=== PATIENT | female | born 1950 | race Caucasian/White ===

== ENCOUNTER 2020-01-25 17:37 | Emergency (ER) | payer MEDICARE, MEDICAID, SELFPAY ==
[2020-01-25 17:49] VITALS: BP 138/72; BP 164/88; PULSE 60; PULSE 74; RESP 16; TEMP 36.6; O2SAT 90; O2SAT 92; BMI 22.6
--- NOTE | 2020-01-25 18:03 | ED_ITS ---
HPI - Medical Clearance General Chief complaint: Medical Clearance Stated complaint: DISCOLORATION LT SHOULDER/FEET Time Seen by Provider: 01/25/20 18:01 Source: patient Mode of arrival: EMS Limitations: other ( patient is a poor historian) History of Present Illness HPI Narrative: 69 years old female brought in by ambulance from a shelter, there is a concern off (mottling) of left arm and both feet, patient is poor historian at her baseline, patient keep repeating ' I am fine ', patient had stable vital sign, and exam is not indicated for any sign of critical illness. or acute ischemic events. Related Information Allergies Allergy/AdvReac Type Severity Reaction Status Date / Time oxycodone [OXYCODONE] Allergy Unknown UNK Verified 01/25/20 18:12 pregabalin [PREGABALIN] Allergy Unknown UNK Verified 01/25/20 18:12 tramadol [TRAMADOL] Allergy Unknown UNK Verified 01/25/20 18:12 Review of Systems Review of Systems: All other systems are reviewed and are negative Constitutional: Reports as per HPI and Reports no additional constitutional comp laints Eyes: Reports as per HPI and Reports no additional eye complaints Reports system reviewed and no additional complaints, except as documented Cardiovascular: Reports as per HPI and Reports no additional cardiovascular complaints Respiratory: Reports as per HPI and Reports no additional respiratory complaints Gastrointestinal: Reports as per HPI and Reports no additional gastrointestinal complaints Genitourinary: Reports no additional female genitourinary complaints Musculoskeletal: Reports no additional musculoskeletal complaints Skin/Breast: Reports system reviewed and no additional complaints, except as docu Psychiatric: Reports no additional psychiatric complaints Endocrine: Reports no additional endocrine complaints Hematologic/Lymphatic: Reports no additional hematologic/lymphatic complaints Allergic/Immunologic: Reports no additional allergic/immunologic complaints Reports system reviewed and no additional complaints, except as documented and Reports Abnormal speech present [facility] Past Medical History [facility] Narrative: PMHx: COPD, CKD, DM, HTN, Metabolic encephalopathy, Bipolar disorder, dementia, hypercoagulopathy on coumadin, DVT, Hypernatremia, head injury Medical History (Updated 01/25/20 @ 18:11 by Denise Bojorquez) Accidental poisoning Anemia Anxiety Cataract Catatonic disorder due to known physiological condition CKD (chronic kidney disease) stage 4, GFR 15-29 ml/min COPD (chronic obstructive pulmonary disease) Delirium Diabetes insipidus Diabetes mellitus Disorientated Dysphagia Essential (primary) hypertension GERD (gastroesophageal reflux disease) Hyperkalemia Hyperosmolality Major depressive disorder Manic behavior Metabolic encephalopathy Presbyopia Subarachnoid hemorrhage Venous thromboembolism (VTE) Social History Social History Alcohol intake: never Smoking Status: Never smoker Smoked in Last 30 Days: No Use of substances other than those prescribed or required for medical reasons: No Any prior treatment program specific to substance use: No Advance Directives: No Advance Directives Information Provided: Yes Physical Exam Vital Signs: Vital Signs: Vital Signs Temp Pulse Resp BP Pulse Ox 01/25/20 21:10 84 16 154/92 H 98 01/25/20 19:31 97.9 F 74 18 139/83 98 01/25/20 17:49 97.9 F 74 16 164/88 H 92 Body Mass Index 22.6 Vital signs have been reviewed as normal and appeared to be correct. Hypertensive. Heart rate normal. Respiration rate normal. Temperature normal. Oxygen saturation normal. Appearance: Alert. Oriented X3. No acute distress. Head: Normal external exam. Normocephalic. Atraumatic. No Johnson signs noted. No raccoon eyes noted Eyes: PERRLA. EOMI. Conjunctiva and sclera normal. Eyelids normal. ENT: EAC normal. TM's Normal. Pharynx normal. Uvula midline. Moist mucous membranes. No trismus noted. No drooling noted. No muffled voice noted. Neck: Normal inspection. Neck supple. FROM. No adenopathy. Thyroid Normal. No meningeal signs. No neck mass noted. CVS: Normal heart rate and rhythm. Heart sound normal. No murmurs noted. Pulses normal throughout. Respiratory: No respiratory distress. Painless inspiration. Breath sounds normal. No wheezes/rales/rhonchi noted. Chest nontender. No accessory muscle usage noted or decreased air movement noted. Abdomen: Soft and nontender. Bowel sounds normal in all 4 quadrants. No distention noted. No organomegaly noted. No visible injury noted. Back: No CVA tenderness. Full range of motion noted. Skin: Skin warm and dry. Normal skin color. Normal skin turgor. No rashes/lesions/lacerations noted. Extremities: Subtle discoloration of the left forearm No mottling, good cap refill on the left hand and bilateral feet, otherwise neurovascular exam is intact. Neuro: Oriented X 3. No motor deficit. No sensory deficit. Reflexes normal. Course Course Course Narrative: 69-year-old female poor historian came in with vague history of discoloration of the left arm and bilateral feet patient had a history of blood clots but no coagulation therapy. Will consider labs to rule out sepsis, will consider ultrasound to rule out vascular occlusion. Reevaluation(s) Reevaluation #1: Patient is awake, oriented, feeling normal, would like to go back to [facility] Time: 00:28 MDM - Medical Clearance MDM Narrative Medical decision making narrative: 69-year-old female came in from [facility] for incidental finding on routine checkup on the patient was what they describe as mottling of the left upper extremities and bilateral feet, physical exam showing no mottling, vascular exam is unremarkable for acute pathology, patient had an extensive ultrasound both venous and arterial on the left upper extremities which showed may be questionable narrowing of the left radial artery otherwise patent subclavian/ brachial /axillary arteries., the case was discussed with Dr. Friedman over the phone, who advised as long as No ischemic change in the hand with normal vital sign and normal blood workup patient can go back to [facility] and follow as an outpatient with her primary doctor. Lab Data Result diagrams: 01/25/20 20:10 01/25/20 20:10 Labs: Lab Results 01/25/20 01/25/20 01/25/20 Range/Units 20:10 20:10 20:10 WBC 7.0 (4.8-10.8) X10*3/uL RBC 5.13 (4.20-5.50) X10*6/uL Hgb 14.2 (12.0-16.0) g/dl Hct 45.3 (37-47) % MCV 88.3 (80-98) fL MCH 27.7 (27.0-33.0) pg MCHC 31.3 (31.0-35.0) g/dl RDW 14.2 (11.0-16.0) % Plt Count 278 (160-400) X10*3/uL MPV 11.0 (9.4-12.3) fL Immature Gran % (Auto) 0.3 (0.0-0.4) % Neut % (Auto) 63.5 (45-73) % Lymph % (Auto) 24.5 (20-40) % Houghton % (Auto) 8.7 (2-11) % Eos % (Auto) 2.4 (0-4) % Baso % (Auto) 0.6 (0-2) % Lymph # (Auto) 1.7 (1.2-4.9) X10*3/uL Houghton # (Auto) 0.6 (0.1-1.2) X10*3/uL Eos # (Auto) 0.2 (0.0-0.4) X10*3/uL Baso # (Auto) 0.0 (0.0-0.2) X10*3/uL Abs Immat Gran (auto) 0.02 (0.00-0.03) X10*3/uL Absolute Neuts (auto) 4.4 (2.0-8.3) X10*3/uL Absolute Nucleated RBC 0.000 (0.0-0.012) X10*3/uL Nucleated RBC % (auto) 0.0 (0.0-0.2) /100WBC ESR 45 H (0-20) MM/HR PT (10.8-13.0) SEC INR (0.9-1.1) APTT (24.1-38.0) SEC Sodium 143 (135-145) mmol/L Potassium 5.1 (3.3-5.1) mmol/l Chloride 111 H (96-108) mmol/L Carbon Dioxide 19 L (22-29) mmol/L Anion Gap 18 (12-20) BUN 27 H (9-16) mg/dL Creatinine 2.34 H (0.5-1.4) mg/dL Estim Creat Clear Calc 19.0 Estimated GFR 20 Random Glucose 76 (60-115) mg/dL Lactic Acid (0.5-2.0) mmol/L Calcium 9.4 (8.4-10.2) mg/dL Total Bilirubin 0.3 (0.0-1.0) mg/dL Direct Bilirubin < 0.2 (0.0-0.5) mg/dL AST 14 (5-31) U/L ALT 17 (0-31) U/L Alkaline Phosphatase 162 H (39-117) U/L C-Reactive Protein 1.51 H (< or = 0.50) mg/dL Total Protein 7.0 (6.5-8.0) g/dL Albumin 3.7 (3.5-5.0) g/dL Lipase 55 (8-78) U/L TSH 0.02 L (0.32-4.0) mIU/mL Free T4 0.93 (0.71-1.85) ng/dL Urine Color Urine Appearance Urine pH (5.0-8.0) Ur Specific Verner (1.005-1.025) Urine Protein (NEG-TRACE) MG/DL Urine Glucose (UA) (NEG) MG/DL Urine Ketones (NEG) MG/DL Urine Blood (NEG) Urine Nitrite (NEG) Ur Leukocyte Esterase (NEG) Urine RBC (0) /HPF Urine WBC (0-4) /HPF Ur Squamous Epith Cells /LPF Urine Bacteria /LPF 01/25/20 01/25/20 01/25/20 Range/Units 20:10 20:10 20:10 WBC (4.8-10.8) X10*3/uL RBC (4.20-5.50) X10*6/uL Hgb (12.0-16.0) g/dl Hct (37-47) % MCV (80-98) fL MCH (27.0-33.0) pg MCHC (31.0-35.0) g/dl RDW (11.0-16.0) % Plt Count (160-400) X10*3/uL MPV (9.4-12.3) fL Immature Gran % (Auto) (0.0-0.4) % Neut % (Auto) (45-73) % Lymph % (Auto) (20-40) % Houghton % (Auto) (2-11) % Eos % (Auto) (0-4) % Baso % (Auto) (0-2) % Lymph # (Auto) (1.2-4.9) X10*3/uL Houghton # (Auto) (0.1-1.2) X10*3/uL Eos # (Auto) (0.0-0.4) X10*3/uL Baso # (Auto) (0.0-0.2) X10*3/uL Abs Immat Gran (auto) (0.00-0.03) X10*3/uL Absolute Neuts (auto) (2.0-8.3) X10*3/uL Absolute Nucleated RBC (0.0-0.012) X10*3/uL Nucleated RBC % (auto) (0.0-0.2) /100WBC ESR (0-20) MM/HR PT 12.8 (10.8-13.0) SEC INR 1.1 (0.9-1.1) APTT 29.4 (24.1-38.0) SEC Sodium (135-145) mmol/L Potassium (3.3-5.1) mmol/l Chloride (96-108) mmol/L Carbon Dioxide (22-29) mmol/L Anion Gap (12-20) BUN (9-16) mg/dL Creatinine (0.5-1.4) mg/dL Estim Creat Clear Calc Estimated GFR Random Glucose (60-115) mg/dL Lactic Acid 1.6 (0.5-2.0) mmol/L Calcium (8.4-10.2) mg/dL Total Bilirubin (0.0-1.0) mg/dL Direct Bilirubin (0.0-0.5) mg/dL AST (5-31) U/L ALT (0-31) U/L Alkaline Phosphatase (39-117) U/L C-Reactive Protein (< or = 0.50) mg/dL Total Protein (6.5-8.0) g/dL Albumin (3.5-5.0) g/dL Lipase (8-78) U/L TSH (0.32-4.0) mIU/mL Free T4 (0.71-1.85) ng/dL Urine Color Urine Appearance Urine pH (5.0-8.0) Ur Specific Verner (1.005-1.025) Urine Protein (NEG-TRACE) MG/DL Urine Glucose (UA) (NEG) MG/DL Urine Ketones (NEG) MG/DL Urine Blood (NEG) Urine Nitrite (NEG) Ur Leukocyte Esterase (NEG) Urine RBC (0) /HPF Urine WBC (0-4) /HPF Ur Squamous Epith Cells /LPF Urine Bacteria /LPF 01/24/20 Range/Units 22:25 WBC (4.8-10.8) X10*3/uL RBC (4.20-5.50) X10*6/uL Hgb (12.0-16.0) g/dl Hct (37-47) % MCV (80-98) fL MCH (27.0-33.0) pg MCHC (31.0-35.0) g/dl RDW (11.0-16.0) % Plt Count (160-400) X10*3/uL MPV (9.4-12.3) fL Immature Gran % (Auto) (0.0-0.4) % Neut % (Auto) (45-73) % Lymph % (Auto) (20-40) % Houghton % (Auto) (2-11) % Eos % (Auto) (0-4) % Baso % (Auto) (0-2) % Lymph # (Auto) (1.2-4.9) X10*3/uL Houghton # (Auto) (0.1-1.2) X10*3/uL Eos # (Auto) (0.0-0.4) X10*3/uL Baso # (Auto) (0.0-0.2) X10*3/uL Abs Immat Gran (auto) (0.00-0.03) X10*3/uL Absolute Neuts (auto) (2.0-8.3) X10*3/uL Absolute Nucleated RBC (0.0-0.012) X10*3/uL Nucleated RBC % (auto) (0.0-0.2) /100WBC ESR (0-20) MM/HR PT (10.8-13.0) SEC INR (0.9-1.1) APTT (24.1-38.0) SEC Sodium (135-145) mmol/L Potassium (3.3-5.1) mmol/l Chloride (96-108) mmol/L Carbon Dioxide (22-29) mmol/L Anion Gap (12-20) BUN (9-16) mg/dL Creatinine (0.5-1.4) mg/dL Estim Creat Clear Calc Estimated GFR Random Glucose (60-115) mg/dL Lactic Acid (0.5-2.0) mmol/L Calcium (8.4-10.2) mg/dL Total Bilirubin (0.0-1.0) mg/dL Direct Bilirubin (0.0-0.5) mg/dL AST (5-31) U/L ALT (0-31) U/L Alkaline Phosphatase (39-117) U/L C-Reactive Protein (< or = 0.50) mg/dL Total Protein (6.5-8.0) g/dL Albumin (3.5-5.0) g/dL Lipase (8-78) U/L TSH (0.32-4.0) mIU/mL Free T4 (0.71-1.85) ng/dL Urine Color YELLOW Urine Appearance CLEAR Urine pH 6.0 (5.0-8.0) Ur Specific Verner 1.015 (1.005-1.025) Urine Protein 1+ H (NEG-TRACE) MG/DL Urine Glucose (UA) NEG (NEG) MG/DL Urine Ketones NEG (NEG) MG/DL Urine Blood NEG (NEG) Urine Nitrite NEG (NEG) Ur Leukocyte Esterase NEG (NEG) Urine RBC 0 (0) /HPF Urine WBC 0-2 (0-4) /HPF Ur Squamous Epith Cells 1+ /LPF Urine Bacteria 1+ /LPF Imaging Data Chest x-ray: Radiologist's impression: Significantly improved prior diffuse interstitial infiltrate, minimal residual parahilar interstitial markings. No dense consolidation. No significant pleural effusion. arterial Doppler scan of left upper extremities left upper extremities arterial Doppler scan: My impression: No evidence for left upper extremity vein thrombosis. Radiologist's impression: Study is technically limited. The patient is unable to fully cooperate. There is antegrade triphasic waveforms within normal caliber smooth vessels in the brachial, axillary and subclavian arteries of the left upper extremity. There is abnormal imaging with diminished color signal and blunted monophasic low amplitude waveforms within the left radial artery. In this setting narrowing or thrombus may be present. Further evaluation may be necessary
--- NOTE | 2020-01-25 18:14 | US_ITS ---
EXAMINATION: DUPLEX EVALUATION OF THE LEFT UPPER EXTREMITY ARTERIAL SYSTEM CLINICAL INFORMATION: Left arm discoloration. History of blood clots COMPARISON: None TECHNIQUE: Grayscale evaluation was performed from the left subclavian to the left forearm. Color mapping was used. Spectral Doppler waveforms were obtained. FINDINGS: Left subclavian artery demonstrates a triphasic waveform in the appropriate direction with a peak systolic velocity of 49 cm/s The left axillary artery appears normal caliber with a smooth contour. There is an 80 solano triphasic waveform. The peak systolic velocity is 49 cm/s The left brachial artery is well visualized with a smooth contour. There is saturation with color signal. There is an antegrade triphasic waveform. The peak systolic velocity is 65 cm/s proximally. The peak systolic velocity in the mid left brachial artery is 70 cm/s. The left radial artery is not well visualized. There is an attenuated antegrade monophasic waveform. The peak systolic velocity is 13 cm/s. This represents dramatic diminution in flow. There is a report of abnormal waveform and diminished velocity in the left ulnar artery. This is not documented. US/US arterial duplex UE LT IMPRESSION: Study is technically limited. The patient is unable to fully cooperate. There is antegrade triphasic waveforms within normal caliber smooth vessels in the brachial, axillary and subclavian arteries of the left upper extremity. There is abnormal imaging with diminished color signal and blunted monophasic low amplitude waveforms within the left radial artery. In this setting narrowing or thrombus may be present. Further evaluation may be necessary
--- NOTE | 2020-01-25 18:14 | US_ITS ---
EXAMINATION: US DUPLEX UPPER EXTREMITY VEINS, LEFT CLINICAL INFORMATION: Left arm discoloration. History of blood clots. COMPARISON: None. TECHNIQUE: Doppler spectral analysis and color mapping was performed of the left upper extremity. Compression and augmentation maneuvers were performed where feasible. Technologist indicates the study was limited due to incomplete cooperation FINDINGS: The left brachial, basilic, and cephalic veins from the antecubital region to the shoulder were visualized and compressible. The axillary and subclavian veins were visualized and compressible where feasible. The lower aspect of the jugular vein was visualized and compressible. The venous system of the forearm was examined. There is color saturation of the venous system of the upper extremity. US/US venous duplex UE LT IMPRESSION: No evidence for left upper extremity vein thrombosis.
--- NOTE | 2020-01-25 18:15 | XR_ITS ---
EXAMINATION: XR chest 1V CLINICAL INFORMATION: Rule out pneumonia COMPARISON: July 2019 TECHNIQUE: XR chest 1V Tubes and lines: None Lungs and Vee: Prior diffuse interstitial infiltrates significantly improved. On the minimal residual interstitial markings parahilar region. Pleura: Normal. Costophrenic angles are sharp. No pneumothorax. Heart and mediastinum: The mediastinum is within normal limits.. Bones: Skeletal structures included are normal for patient's age. XR/XR chest 1V IMPRESSION: Significantly improved prior diffuse interstitial infiltrate, minimal residual parahilar interstitial markings. No dense consolidation. No significant pleural effusion.
--- NOTE | 2020-01-25 18:28 | PC.NURSE ---
Patient distressed. Yelling I want to go back. Difficult to cooperate without consistent encouragement.
--- NOTE | 2020-01-25 18:46 | PC.NURSE ---
Multiple attempts made to get blood labs. Patient not cooperative, very anxious, yelling I want to go home, I have rights? updated of difficulity. Plan to call Proxy which is the son.
[2020-01-25] MEDS: LORazepam 2 MG/ML VIAL IM (18:59)
[2020-01-25 19:31] VITALS: BP 139/83; PULSE 74; RESP 18; TEMP 36.6; O2SAT 98
[2020-01-25 20:15] LABS: MANUAL DIFF FLAG NO
[2020-01-25 20:17] LABS: Basophils Percent Auto 0.6 % (0-2); Eosinophils Absolute Auto 0.2 X10*3/uL (0.0-0.4); Eosinophils Percent Auto 2.4 % (0-4); Hematocrit 45.3 % (37-47); Hemoglobin 14.2 g/dl (12.0-16.0); Imm Gran Abs Auto 0.02 X10*3/uL (0.00-0.03); Imm Gran Pct Auto 0.3 % (0.0-0.4); Lymphocytes Absolute Auto 1.7 X10*3/uL (1.2-4.9); Lymphocytes Percent Auto 24.5 % (20-40); Mean Corpuscular HGB Conc 31.3 g/dl (31.0-35.0); Mean Corpuscular Hemoglobin 27.7 pg (27.0-33.0); Mean Corpuscular Volume 88.3 fL (80-98); Monocytes Absolute Auto 0.6 X10*3/uL (0.1-1.2); Monocytes Percent Auto 8.7 % (2-11); Neutrophils Absolute Auto 4.4 X10*3/uL (2.0-8.3); Neutrophils Percent Auto 63.5 % (45-73); Platelet Count 278 X10*3/uL (160-400); Red Blood Count 5.13 X10*6/uL (4.20-5.50); Red Cell Distribution Width 14.2 % (11.0-16.0)
[2020-01-25 20:21] LABS: INTERNATIONAL NORM RATIO 1.1 (0.9-1.1); Prothrombin Time 12.8 SEC (10.8-13.0)
[2020-01-25 20:29] LABS: Partial Thromboplastin Time 29.4 SEC (24.1-38.0)
[2020-01-25 20:35] LABS: Lactic Acid 1.6 mmol/L (0.5-2.0)
[2020-01-25 20:39] LABS: Alanine Aminotransferase 17 U/L (0-31); Albumin Level 3.7 g/dL (3.5-5.0); Alkaline Phosphatase 162 U/L (39-117); Anion Gap 18 (12-20); Aspartate Amino Transferase 14 U/L (5-31); Bilirubin Direct < 0.2 mg/dL (0.0-0.5); Bilirubin Total 0.3 mg/dL (0.0-1.0); Blood Urea Nitrogen 27 mg/dL (9-16); C Reactive Protein 1.51 mg/dL (< or = 0.50); Calcium 9.4 mg/dL (8.4-10.2); Carbon Dioxide 19 mmol/L (22-29); Chloride 111 mmol/L (96-108); Estimated Glomerular Filt Rate 20; Glucose Random 76 mg/dL (60-115); Lipase 55 U/L (8-78); Potassium 5.1 mmol/l (3.3-5.1); Sodium 143 mmol/L (135-145)
[2020-01-25 20:59] LABS: TSH reflex Free T4 0.02 mIU/mL (0.32-4.0)
[2020-01-25 21:10] VITALS: BP 154/92; PULSE 84; RESP 16; O2SAT 98
[2020-01-25 21:11] LABS: Erythrocyte Sedimentation Rate 45 MM/HR (0-20)
[2020-01-25 22:09] LABS: Free T4 (Free Thyroxine) 0.93 ng/dL (0.71-1.85)
--- NOTE | 2020-01-25 22:10 | PC.NURSE ---
OUt of bed to bedside commode with rn to attempt UA
[2020-01-25 22:36] LABS: Glucose Urine UA NEG (NEG); Leukocyte Esterase Urine NEG (NEG); Nitrite Urine NEG (NEG); Specific Gravity - Urine 1.015 (1.005-1.025); Urine Blood NEG (NEG); Urine Ketones NEG (NEG); Urine Protein 1+ MG/DL (NEG-TRACE)
[2020-01-25 22:41] LABS: Appearance Urine CLEAR; Color Urine YELLOW
[2020-01-25 23:06] LABS: Bacteria Urine 1+ /LPF; RBC Urine 0 /HPF (0); Squamous Epithelial Cell Urine 1+ /LPF; WBC Urine 0-2 /HPF (0-4)
== END 2020-01-26 01:55 ==
PROVIDERS: Emergency Provider Emergency Medicine; PCP Surgery
DX: M79.602 Pain in left arm (principal); M79.672 Pain in left foot; M79.671 Pain in right foot; I10 Essential (primary) hypertension; Z79.899 Other long term (current) drug therapy; Z79.01 Long term (current) use of anticoagulants
CPT/HCPCS: 36415; 71045; 80048; 80076; 81001; 83605; 83690; 84439; 84443; 85025; 85610; 85652; 85730; 86140; 93931; 93971; 96372; 99284; J2060

== ENCOUNTER → 2020-02-25 09:47 | Outpatient (BNVA) | payer MEDICARE, MEDICAID, SELFPAY | PROVIDERS: PCP Surgery; Referring Provider Surgery; Visit Provider Surgery | DX: R92.8 Other abnormal and inconclusive findings on diagnostic imaging of breast (principal) | CPT/HCPCS: 99212 ==

== ENCOUNTER 2020-11-11 16:35 | Outpatient (REF) | payer MEDICARE, MEDICAID, SELFPAY ==
[2020-11-11 16:48] LABS: Glucose Urine UA NEG (NEG); Leukocyte Esterase Urine NEG (NEG); Nitrite Urine NEG (NEG); Urine Blood NEG (NEG); Urine Ketones NEG (NEG); Urine Protein TRACE MG/DL (NEG-TRACE)
[2020-11-11 16:49] LABS: Appearance Urine CLEAR; Color Urine YELLOW
== END 2020-11-11 16:36 | disposition home or self-care (01) ==
LOC: HO.LNP 16:35
PROVIDERS: Visit Provider Hospitalist
DX: R41.82 Altered mental status, unspecified (principal)
CPT/HCPCS: 81003; 87086

== ENCOUNTER 2022-02-01 15:44 | Inpatient (IN) | payer MEDICARE, MEDICAID, SELFPAY ==
--- NOTE | ~2022-02-01 | CT_ITS ---
EXAMINATION: CT CHEST, ABDOMEN AND PELVIS WITHOUT CONTRAST CLINICAL INFORMATION: Chest and abdominal pain COMPARISON: No pertinent prior studies are available for comparison. TECHNIQUE: Multidetector volumetric imaging was performed from the thoracic inlet through the pubic symphysis without IV contrast. Sagittal and coronal reformatted images were obtained on the technologist's workstation. This CT examination was performed using dose optimization techniques as appropriate, variously including the following: *Automated exposure control *Adjustment of mA and/or kV according to patient size (this includes techniques or standardized protocols for targeted exams where dose is matched to indication/reason for exam; i.e. extremities or head) *Use of iterative reconstruction technique DLP: 507 mGy-cm FINDINGS: CHEST: Lung: There is a 3 mm subpleural left upper lobe nodule (7:215). Right middle lobe atelectasis is seen along the fissure (7:322). Lungs are otherwise clear. Mediastinum: There is thyromegaly with some punctate calcification. There is mild pectus excavatum. Small defect is seen in the sternum (5:44). Heart size normal. Minimal coronary calcification. Pericardium/Pleura: No significant effusion. No pleural mass or thickening. Chest Wall/Axilla: Unremarkable ABDOMEN/PELVIS: Peritoneal Space: No significant free air or free fluid identified. Liver, Gallbladder, Biliary Tree: The liver is normal in size, shape, and attenuation. No focal hepatic lesion or biliary ductal dilatation is present. The gallbladder is unremarkable with no evidence of radiopaque gallstones, gallbladder wall thickening, or obvious pericholecystic inflammatory changes. Pancreas: Unremarkable Spleen: Unremarkable Adrenal Glands: Unremarkable Kidneys and Ureters: The kidneys are normal in size, shape, and attenuation. No hydronephrosis, hydroureter, or calculi seen. No perinephric stranding. Bladder: Dillard catheter is present in a partially decompressed thick-walled bladder. Gastrointestinal Tract: Moderate high density stool is noted throughout the colon. No evidence of bowel obstruction. The small and large bowel are otherwise unremarkable. The appendix is unremarkable with the exception of a small appendicolith versus contrast media. Abdominal Wall: No significant hernia is appreciated. Lymph Nodes: No lymphadenopathy. Vascular: The aorta appears normal.. The IVC appears unremarkable. PELVIC VISCERA: Calcifications in the retroverted uterus consistent with old uterine fibroids. An abnormal adnexal mass or free intraperitoneal fluid is not seen. OSSEUS STRUCTURES: Are degenerative changes are noted throughout the spine. No bony destructive lesions are seen. 1.4 cm sclerotic lesion left hemisacrum. CT/CT abdomen pelvis wo IV con IMPRESSION: 1. A cause for the patient's abdominal pain and chest pain has not been found. 2. Incidental note made of thyromegaly, old uterine fibroids, degenerative changes in the spine and a small defect in the sternum. 3. Incidental note made of a 3 mm left upper lobe nodule, a Dillard catheter in the thick-walled bladder, moderate stool burden and appendicolith. No evidence of appendicitis. 4. 1.4 cm sclerotic lesion left hemisacrum. Fleischner guidelines were followed.
[2022-02-01 15:56] VITALS: BP 108/68; BP 109/72; PULSE 91; PULSE 93; RESP 10; TEMP 36.6; O2SAT 94; O2SAT 95; BMI 22.3
[2022-02-01 15:59] VITALS: BP 94/67; PULSE 93; RESP 16; TEMP 36.6; O2SAT 95
--- NOTE | 2022-02-01 16:03 | ECG_ITS ---
Test Reason : WEAKNESS Blood Pressure : / mmHG Vent. Rate : 089 BPM Atrial Rate : 089 BPM P-R Int : 156 ms QRS Dur : 130 ms QT Int : 406 ms P-R-T Axes : 065 002 036 degrees QTc Int : 493 ms Normal sinus rhythm Right bundle branch block Inferior infarct (cited on or before 24-JUL-2019) Abnormal ECG When compared with ECG of 24-JUL-2019 20:57, Inverted T waves have replaced nonspecific T wave abnormality in Anterior leads Heart rate has decreased Referred By: Eri Billy Electronically Signed By:LIZETH CASTILLO MD
--- NOTE | 2022-02-01 17:19 | PC.NURSE ---
This RN attempted to draw labs off pt midline, unsuccessful. Midline capable of being flushed with no issue. This RN and PCT Karine vanessa pt labs. Pt is very difficult stick. This RN also placed a perry catheter in pt, size 16 indonesian, 10 mL balloon. Pt tolerated procedure fairly. Pt is now resting comfortable on stretcher asking for a phoebe stevie
[2022-02-01 17:36] LABS: MANUAL DIFF FLAG NO
[2022-02-01 17:37] LABS: Basophils Absolute Auto 0.1 X10*3/uL (0.0-0.2); Basophils Percent Auto 0.5 % (0-2); Eosinophils Absolute Auto 0.2 X10*3/uL (0.0-0.4); Eosinophils Percent Auto 1.8 % (0-4); Hematocrit 45.6 % (37.0-47.0); Hemoglobin 14.7 g/dl (12.0-16.0); Imm Gran Abs Auto 0.04 X10*3/uL (0.00-0.03); Imm Gran Pct Auto 0.4 % (0.0-0.4); Lymphocytes Absolute Auto 2.6 X10*3/uL (1.2-4.9); Lymphocytes Percent Auto 26.9 % (20-40); Mean Corpuscular HGB Conc 32.2 g/dl (31.0-35.0); Mean Corpuscular Hemoglobin 27.6 pg (27.0-33.0); Mean Corpuscular Volume 85.7 fL (80.0-98.0); Mean Platelet Volume 11.7 fL (9.4-12.3); Monocytes Absolute Auto 1.1 X10*3/uL (0.1-1.2); Monocytes Percent Auto 11.2 % (2-11); Neutrophils Absolute Auto 5.8 x10*3/uL (2.0-8.3); Neutrophils Percent Auto 59.2 % (45-73); Platelet Count 259 X10*3/uL (160-400); Red Blood Count 5.32 X10*6/uL (4.20-5.50); Red Cell Distribution Width 15.2 % (11.0-16.0); White Blood Count 9.8 X10*3/uL (4.8-10.8)
[2022-02-01 17:42] LABS: INTERNATIONAL NORM RATIO 1.2 (0.9-1.1); Prothrombin Time 13.9 SEC (10.0-13.1)
--- NOTE | 2022-02-01 17:47 | ED_ITS ---
HPI - Weakness General Chief complaint: Weakness Stated complaint: WEAK,LETHARGY FROM SN[facility] PER EMS Time Seen by Provider: 02/01/22 16:03 Source: EMS Mode of arrival: EMS History of Present Illness HPI Narrative: 71-year-old female brought in by EMS with staff complaints of increasing weakness and fatigue, on questioning patient denies any shortness of breath or chest pain/palpitations but also has baseline dementia. Related Data Home Medications Medication Instructions Recorded Confirmed cholecalciferol (vitamin D3) 50 50 mcg PO DAILY 02/25/20 02/25/20 mcg (2,000 unit) capsule clonidine 0.1 mg/24 hr weekly 1 patch transdermal QWEEK 02/25/20 02/25/20 transdermal patch desipramine 50 mg tablet 50 mg PO BEDTIME 02/25/20 02/25/20 glucagon 1 mg/0.2 mL subcutaneous mg subcut 02/25/20 02/25/20 auto-injector hydroxyzine HCl 25 mg tablet 25 mg PO BEDTIME 02/25/20 02/25/20 melatonin 5 mg capsule 5 mg PO BEDTIME PRN 02/25/20 02/25/20 metoprolol tartrate 25 mg tablet 12.5 mg PO BID 02/25/20 02/25/20 mirtazapine 30 mg tablet 30 mg PO BEDTIME 02/25/20 02/25/20 nystatin 100,000 unit/gram g topical 02/25/20 02/25/20 powder-emollient combination no.[id number] gel pack oxcarbazepine 300 mg tablet 300 mg PO BID 02/25/20 02/25/20 Allergies Allergy/AdvReac Type Severity Reaction Status Date / Time oxycodone [OXYCODONE] Allergy Unknown UNK Verified 01/25/20 18:12 pregabalin [PREGABALIN] Allergy Unknown UNK Verified 01/25/20 18:12 tramadol [TRAMADOL] Allergy Unknown UNK Verified 01/25/20 18:12 Review of Systems Review of Systems: Pertinent positives and negatives as stated in HPI 10 point review of systems is otherwise negative. PMFSH Past Medical History Source: nursing notes reviewed Medical History Accidental poisoning Anemia Anxiety Cataract Catatonic disorder due to known physiological condition CKD (chronic kidney disease) stage 4, GFR 15-29 ml/min COPD (chronic obstructive pulmonary disease) Delirium Diabetes insipidus Diabetes mellitus Disorientated Dysphagia Essential (primary) hypertension GERD (gastroesophageal reflux disease) Hyperkalemia Hyperosmolality Major depressive disorder Manic behavior Metabolic encephalopathy Presbyopia Subarachnoid hemorrhage Venous thromboembolism (VTE) Surgical History History of lumpectomy of left breast (~05/2012) Family History Family History Father No problems noted. Mother No problems noted. Social History Social History Alcohol intake: never Advance Directives: No Advance Directives Information Provided: No Physical Exam Vital Signs: Vital Signs: Last Vital Signs Temp 98.7 F 02/01/22 20:47 Pulse 79 02/01/22 20:47 Resp 19 02/01/22 20:47 BP 119/76 02/01/22 20:47 Pulse Ox 96 02/01/22 20:47 O2 Del Method 02/01/22 20:47 BMI result Body Mass Index 22.3 VITAL SIGNS: Reviewed. GENERAL: Chronically ill, cachectic in no acute distress. HEAD: Normocephalic/atraumatic EYES: PERRLA, EOMI EARS: Ext canals without abnormality, TMs non-bulging and non-erythematous NOSE: Nares patent bilateral OROPHARYNX: no oral lesions noted, posterior pharynx clear, dry mucosa LUNGS: Good inspiratory effort, rales noted. SpO2<95> CARDIOVASCULAR: Regular rate and rhythm without noted murmurs, no JVD or lower extremity edema. ABDOMEN: Soft, non-tender, non-distended with bowel sounds. MUSCULOSKELETAL: No tenderness, deformities, or effusions noted on gross inspection. EXTREMITIES: No cyanosis, clubbing or edema. SKIN: Inspection of the skin reveals no rashes, dry skin NEUROLOGIC: Alert and oriented x 2. Strength and sensation to light touch were grossly intact but patient also appears to be in a contracted position Course Course Course Narrative: 71-year-old female with history and clinical presentation and will rule out infection, cardiopulmonary, anemia. 1920: I suspect infection, antibiotics given, fluids given serial troponins flat in suspect they may be elevated due to acute on chronic renal failure and patient has no complaints of chest pain. I discussed case with inpatient hospitalist. MDM - Weakness Lab Data Result diagrams: 02/01/22 17:25 02/01/22 20:04 Labs: Lab Results 02/01/22 02/01/22 02/01/22 Range/Units 17:25 17:25 17:25 WBC 9.8 (4.8-10.8) X10*3/uL RBC 5.32 (4.20-5.50) X10*6/uL Hgb 14.7 (12.0-16.0) g/dl Hct 45.6 (37.0-47.0) % MCV 85.7 (80.0-98.0) fL MCH 27.6 (27.0-33.0) pg MCHC 32.2 (31.0-35.0) g/dl RDW 15.2 (11.0-16.0) % Plt Count 259 (160-400) X10*3/uL MPV 11.7 (9.4-12.3) fL Immature Gran % (Auto) 0.4 (0.0-0.4) % Neut % (Auto) 59.2 (45-73) % Lymph % (Auto) 26.9 (20-40) % [place] % (Auto) 11.2 H (2-11) % Eos % (Auto) 1.8 (0-4) % Baso % (Auto) 0.5 (0-2) % Lymph # (Auto) 2.6 (1.2-4.9) X10*3/uL [place] # (Auto) 1.1 (0.1-1.2) X10*3/uL Eos # (Auto) 0.2 (0.0-0.4) X10*3/uL Baso # (Auto) 0.1 (0.0-0.2) X10*3/uL Abs Immat Gran (auto) 0.04 H (0.00-0.03) X10*3/uL Absolute Neuts (auto) 5.8 (2.0-8.3) x10*3/uL Absolute Nucleated RBC 0.000 (0.0-0.012) X10*3/uL Nucleated RBC % (auto) 0.0 (0.0-0.2) /100WBC PT 13.9 H (10.0-13.1) SEC INR 1.2 H (0.9-1.1) Sodium (135-145) mmol/L Potassium (3.3-5.1) mmol/L Chloride (96-108) mmol/L Carbon Dioxide (22-29) mmol/L Anion Gap (12-20) BUN (9-16) mg/dL Creatinine (0.5-1.4) mg/dL Estim Creat Clear Calc Estimated GFR Random Glucose (60-115) mg/dL Lactic Acid (0.5-2.0) mmol/L Calcium (8.4-10.2) mg/dL Total Bilirubin (0.0-1.0) mg/dL AST (5-31) U/L ALT (0-31) U/L Alkaline Phosphatase (39-117) U/L Troponin I High Sens (<3.5-17.0) ng/L B-Natriuretic Peptide (<100) pg/mL Total Protein (6.5-8.0) g/dL Albumin (3.5-5.0) g/dL Urine Color Urine Appearance Urine pH (5.0-9.0) Ur Specific [place] (1.005-1.025) Urine Protein (Neg-Trace) mg/dL Urine Glucose (UA) (Negative) mg/dL Urine Ketones (Negative) mg/dL Urine Blood (Negative) Urine Nitrite (Negative) Ur Leukocyte Esterase (Negative) Urine RBC (0-2) /HPF Urine WBC (0-5) /HPF Ur Squamous Epith Cells (0-2) /HPF Urine Bacteria (None Seen) Hyaline Casts (0-2) /LPF Influenza Type A (PCR) NEGATIVE (Negative) Influenza Type B (PCR) NEGATIVE (Negative) RSV RNA Qual (PCR) NEGATIVE (Negative) SARS-CoV-2 RNA (RT-PCR) NEGATIVE (Negative) 02/01/22 02/01/22 02/01/22 Range/Units 17:25 17:25 17:26 WBC (4.8-10.8) X10*3/uL RBC (4.20-5.50) X10*6/uL Hgb (12.0-16.0) g/dl Hct (37.0-47.0) % MCV (80.0-98.0) fL MCH (27.0-33.0) pg MCHC (31.0-35.0) g/dl RDW (11.0-16.0) % Plt Count (160-400) X10*3/uL MPV (9.4-12.3) fL Immature Gran % (Auto) (0.0-0.4) % Neut % (Auto) (45-73) % Lymph % (Auto) (20-40) % [place] % (Auto) (2-11) % Eos % (Auto) (0-4) % Baso % (Auto) (0-2) % Lymph # (Auto) (1.2-4.9) X10*3/uL [place] # (Auto) (0.1-1.2) X10*3/uL Eos # (Auto) (0.0-0.4) X10*3/uL Baso # (Auto) (0.0-0.2) X10*3/uL Abs Immat Gran (auto) (0.00-0.03) X10*3/uL Absolute Neuts (auto) (2.0-8.3) x10*3/uL Absolute Nucleated RBC (0.0-0.012) X10*3/uL Nucleated RBC % (auto) (0.0-0.2) /100WBC PT (10.0-13.1) SEC INR (0.9-1.1) Sodium (135-145) mmol/L Potassium (3.3-5.1) mmol/L Chloride (96-108) mmol/L Carbon Dioxide (22-29) mmol/L Anion Gap (12-20) BUN (9-16) mg/dL Creatinine (0.5-1.4) mg/dL Estim Creat Clear Calc Estimated GFR Random Glucose (60-115) mg/dL Lactic Acid 1.6 (0.5-2.0) mmol/L Calcium (8.4-10.2) mg/dL Total Bilirubin (0.0-1.0) mg/dL AST (5-31) U/L ALT (0-31) U/L Alkaline Phosphatase (39-117) U/L Troponin I High Sens 210.6 H* (<3.5-17.0) ng/L B-Natriuretic Peptide 269 H (<100) pg/mL Total Protein (6.5-8.0) g/dL Albumin (3.5-5.0) g/dL Urine Color Urine Appearance Urine pH (5.0-9.0) Ur Specific [place] (1.005-1.025) Urine Protein (Neg-Trace) mg/dL Urine Glucose (UA) (Negative) mg/dL Urine Ketones (Negative) mg/dL Urine Blood (Negative) Urine Nitrite (Negative) Ur Leukocyte Esterase (Negative) Urine RBC (0-2) /HPF Urine WBC (0-5) /HPF Ur Squamous Epith Cells (0-2) /HPF Urine Bacteria (None Seen) Hyaline Casts (0-2) /LPF Influenza Type A (PCR) (Negative) Influenza Type B (PCR) (Negative) RSV RNA Qual (PCR) (Negative) SARS-CoV-2 RNA (RT-PCR) (Negative) 02/01/22 02/01/22 02/01/22 Range/Units 19:20 20:04 20:04 WBC (4.8-10.8) X10*3/uL RBC (4.20-5.50) X10*6/uL Hgb (12.0-16.0) g/dl Hct (37.0-47.0) % MCV (80.0-98.0) fL MCH (27.0-33.0) pg MCHC (31.0-35.0) g/dl RDW (11.0-16.0) % Plt Count (160-400) X10*3/uL MPV (9.4-12.3) fL Immature Gran % (Auto) (0.0-0.4) % Neut % (Auto) (45-73) % Lymph % (Auto) (20-40) % [place] % (Auto) (2-11) % Eos % (Auto) (0-4) % Baso % (Auto) (0-2) % Lymph # (Auto) (1.2-4.9) X10*3/uL [place] # (Auto) (0.1-1.2) X10*3/uL Eos # (Auto) (0.0-0.4) X10*3/uL Baso # (Auto) (0.0-0.2) X10*3/uL Abs Immat Gran (auto) (0.00-0.03) X10*3/uL Absolute Neuts (auto) (2.0-8.3) x10*3/uL Absolute Nucleated RBC (0.0-0.012) X10*3/uL Nucleated RBC % (auto) (0.0-0.2) /100WBC PT (10.0-13.1) SEC INR (0.9-1.1) Sodium 146 H (135-145) mmol/L Potassium 4.5 (3.3-5.1) mmol/L Chloride 110 H (96-108) mmol/L Carbon Dioxide 18 L (22-29) mmol/L Anion Gap 23 H (12-20) BUN 97 H (9-16) mg/dL Creatinine 5.87 H* (0.5-1.4) mg/dL Estim Creat Clear Calc 7.3 Estimated GFR 7 Random Glucose 97 (60-115) mg/dL Lactic Acid (0.5-2.0) mmol/L Calcium 9.5 (8.4-10.2) mg/dL Total Bilirubin 0.6 (0.0-1.0) mg/dL AST 12 (5-31) U/L ALT 7 (0-31) U/L Alkaline Phosphatase 119 H D (39-117) U/L Troponin I High Sens 160.1 H* (<3.5-17.0) ng/L B-Natriuretic Peptide (<100) pg/mL Total Protein 7.1 (6.5-8.0) g/dL Albumin 3.4 L (3.5-5.0) g/dL Urine Color Yellow Urine Appearance Cloudy Urine pH 5.5 (5.0-9.0) Ur Specific [place] 1.015 (1.005-1.025) Urine Protein 100 (2+) H (Neg-Trace) mg/dL Urine Glucose (UA) Negative (Negative) mg/dL Urine Ketones Negative (Negative) mg/dL Urine Blood Small (1+) H (Negative) Urine Nitrite Negative (Negative) Ur Leukocyte Esterase Large (3+) H (Negative) Urine RBC 0-2 (0-2) /HPF Urine WBC >50 H (0-5) /HPF Ur Squamous Epith Cells 0-2 (0-2) /HPF Urine Bacteria 4+ (None Seen) Hyaline Casts 3-5 (0-2) /LPF Influenza Type A (PCR) (Negative) Influenza Type B (PCR) (Negative) RSV RNA Qual (PCR) (Negative) SARS-CoV-2 RNA (RT-PCR) (Negative) ECG Data Attestation: I personally reviewed and interpreted this ECG as follows: Prior ECG tracings: available for review Interpretation: NSR, HR-89, RBBB, no EKG for comparison, [place] within normal limits. Critical Care Time Critical Care Time Critical Care Time: Yes Total Critical Care Time: 30 Attestation: I personally attest to this time spent taking care of the patient. Discharge Plan Discharge Clinical Impression: Acute on chronic renal failure, Elevated troponin, CHF (congestive heart failure), UTI (urinary tract infection) Patient Disposition: Admitted As Inpatient
[2022-02-01 17:52] LABS: Lactic Acid 1.6 mmol/L (0.5-2.0)
[2022-02-01 18:00] LABS: B Type Natriuretic Peptide 269 pg/mL (<100)
[2022-02-01 18:02] LABS: Troponin-I High Sensitivity 210.6 ng/L (<3.5-17.0)
[2022-02-01 18:17] LABS: Influenza A PCR NEGATIVE (Negative); Influenza B PCR NEGATIVE (Negative); Resp Syncy Virus RNA Qual PCR NEGATIVE (Negative); SARS COV2 PCR INHOUSE NEGATIVE (Negative)
[2022-02-01] MEDS: 0.9 % Sodium Chloride 1,000 ML 999 ML IV (19:12)
[2022-02-01 19:42] LABS: Appearance Urine Cloudy; Color Urine Yellow; Glucose Urine UA Negative (Negative); Leukocyte Esterase Urine Large (3+) (Negative); Nitrite Urine Negative (Negative); PH 5.5 (5.0-9.0); Specific Gravity - Urine 1.015 (1.005-1.025); UMIC TRIGGER UACC YES; Urine Blood Small (1+) (Negative); Urine Ketones Negative (Negative); Urine Protein 100 (2+) mg/dL (Neg-Trace)
[2022-02-01] MEDS: Furosemide 40 MG/4 ML VIAL IVPUSH (19:48)
[2022-02-01 20:17] LABS: Bacteria Urine 4+ (None Seen); RBC Urine 0-2 /HPF (0-2); Squamous Epithelial Cell Urine 0-2 /HPF (0-2); UACC Culture Trigger YES; WBC Urine >50 /HPF (0-5)
[2022-02-01 20:35] LABS: Creatinine Clr Calc Pharmacy 7.3; Estimated Glomerular Filt Rate 7
[2022-02-01 20:36] LABS: Alanine Aminotransferase 7 U/L (0-31); Albumin Level 3.4 g/dL (3.5-5.0); Alkaline Phosphatase 119 U/L (39-117); Anion Gap 23 (12-20); Aspartate Amino Transferase 12 U/L (5-31); Bilirubin Total 0.6 mg/dL (0.0-1.0); Blood Urea Nitrogen 97 mg/dL (9-16); Calcium 9.5 mg/dL (8.4-10.2); Carbon Dioxide 18 mmol/L (22-29); Chloride 110 mmol/L (96-108); Glucose Random 97 mg/dL (60-115); Potassium 4.5 mmol/L (3.3-5.1); Sodium 146 mmol/L (135-145); Total Protein 7.1 g/dL (6.5-8.0); Troponin-I High Sensitivity 160.1 ng/L (<3.5-17.0)
[2022-02-01] MEDS: cefTRIAXone sodium 1 GM in 0.9 % Sodium Chloride 50 ML IV (20:45)
[2022-02-01 20:47] VITALS: BP 119/76; PULSE 79; RESP 19; TEMP 37.1; O2SAT 96
[2022-02-01 21:45] VITALS: BP 123/75; PULSE 77; RESP 21; TEMP 37.3; O2SAT 98
--- NOTE | 2022-02-01 22:29 | PC.NURSE ---
Pt sleeping on stretcher at this time. respirations are even and unlabored.
--- NOTE | 2022-02-01 23:01 | P.HPHOSP_ITS ---
History of Present Illness Date of Service: 02/01/22 Chief Complaint: Altered mental status This is a 71-year-old female with past medical history of CKD, COPD, diabetes, dysphagia, essential hypertension, GERD, history of subarachnoid hemorrhage, VTE. Patient has baseline dementia therefore unable to give much history, history is obtained mostly from EMR and ED physician. Patient was brought in from [facility] for increased weakness and fatigue as well as altered mental status. On questioning patient on her review of system, she has not given me much history although she is awake and has her eyes open and tracks and states that she is able to hear my questions. On arrival to the ED patient was found to have no acute significant abnormal vitals Labs are significant for sodium of 146, BUN of 97, and creatinine of 5.87 with a baseline of around 2.34, troponin of 210 that decreased to 160, BNP of 269, UA positive for leukocyte Estrace, as well as WBC Abdomen pelvic CT shows no significant cause of the patient's abdominal pain and chest pain thyromegaly, old uterine fibroid, 3 mm left upper lobe nodule, thick- walled bladder, moderate stool burden an appendicolith with no evidence appendic itis. And 1.4 cm sclerotic lesion of left hank sacrum Patient started on IV antibiotics and fluids and will be admitted for further management. Review of Systems Review of Systems: Yes Unobtainable due to mental condition and Unobtainable due to mental status [facility] Medical History Accidental poisoning Anemia Anxiety Cataract Catatonic disorder due to known physiological condition CKD (chronic kidney disease) stage 4, GFR 15-29 ml/min COPD (chronic obstructive pulmonary disease) Delirium Diabetes insipidus Diabetes mellitus Disorientated Dysphagia Essential (primary) hypertension GERD (gastroesophageal reflux disease) Hyperkalemia Hyperosmolality Major depressive disorder Manic behavior Metabolic encephalopathy Presbyopia Subarachnoid hemorrhage Venous thromboembolism (VTE) Family History Father No problems noted. Mother No problems noted. Surgical History History of lumpectomy of left breast (~05/2012) Social History Alcohol intake: never Advance Directives: No Advance Directives Information Provided: No Meds Allergies Allergy/AdvReac Type Severity Reaction Status Date / Time oxycodone [OXYCODONE] Allergy Unknown UNK Verified 01/25/20 18:12 pregabalin [PREGABALIN] Allergy Unknown UNK Verified 01/25/20 18:12 tramadol [TRAMADOL] Allergy Unknown UNK Verified 01/25/20 18:12 Home Medications Medication Instructions Recorded Confirmed Last Taken Type cholecalciferol (vitamin D3) 50 50 mcg PO DAILY 02/25/20 02/01/22 02/01/22 History mcg (2,000 unit) capsule clonidine 0.1 mg/24 hr weekly 1 patch transdermal QWEEK 02/25/20 02/01/22 Unknown History transdermal patch desipramine 50 mg tablet 50 mg PO BEDTIME 02/25/20 02/01/22 01/31/22 History glucagon 1 mg/0.2 mL subcutaneous 1 mg subcut Q15M PRN HYPOGLYCEMIC 02/25/20 02/01/22 Unknown History auto-injector EVENT melatonin 5 mg capsule 5 mg PO BEDTIME 02/25/20 02/01/22 Unknown History metoprolol tartrate 25 mg tablet 12.5 mg PO BID 02/25/20 02/01/22 02/01/22 History mirtazapine 30 mg tablet 30 mg PO BEDTIME 02/25/20 02/01/22 01/31/22 History diazepam 2 mg tablet 1 mg PO BID 02/01/22 02/01/22 02/01/22 History furosemide 20 mg tablet 20 mg PO DAILY 02/01/22 02/01/22 02/01/22 History haloperidol decanoate 50 mg/mL 30 mg IM Q14D 02/01/22 02/01/22 Unknown History intramuscular solution (Haldol Decanoate) nystatin 100,000 unit/gram topical 1 appl topical BID 02/01/22 02/01/22 02/01/22 History powder oxcarbazepine 300 mg/5 mL (60 300 mg PO BID 02/01/22 02/01/22 02/01/22 History mg/mL) oral suspension pantoprazole 40 mg tablet,delayed 40 mg PO DAILY 02/01/22 02/01/22 02/01/22 History release perphenazine 2 mg tablet 2 mg PO BID 02/01/22 02/01/22 02/01/22 History perphenazine 4 mg tablet 4 mg PO BID 02/01/22 02/01/22 02/01/22 History polymyxin B sulfate 10,000 1 drp ophthalmic (eye) QID 02/01/22 02/01/22 02/01/22 History unit-trimethoprim 1 mg/mL eye drops (Polytrim) sennosides 8.6 mg tablet (senna) 8.6 mg PO DAILY PRN Constipation 02/01/22 02/01/22 Unknown History simvastatin 20 mg tablet (Zocor) 40 mg PO DAILY 02/01/22 02/01/22 02/01/22 History sodium bicarbonate 650 mg tablet 650 mg PO TID 02/01/22 02/01/22 Unknown History sodium zirconium cyclosilicate 10 20 g PO DAILY 02/01/22 02/01/22 02/01/22 History gram oral powder packet (Lokelma) Physical Exam Vital Signs and Narrative: Vital Signs: Last Vital Signs Temp 99.1 F 02/01/22 21:45 Pulse 77 02/01/22 21:45 Resp 21 H 02/01/22 21:45 BP 123/75 02/01/22 21:45 Pulse Ox 98 02/01/22 21:45 O2 Del Method 02/01/22 21:45 BMI result Body Mass Index 22.3 Const: Other: Frail, ill-appearing not cooperating with physical exam General: cooperative and no acute distress Eyes: General: appearance normal, both eyes and all related structures Resp: Effort & Inspection: normal respiratory effort Auscultation: clear to auscultation bilaterally Cardio: Rate: regular rate Rhythm: regular rhythm GI: Palpation (GI): Soft to palpation Auscultation: normal bowel sounds Skin: Other: Dry mucosal membranes General skin exam: no rashes or lesions noted Extrem: General: Yes normal to inspection and Yes no pedal edema Results Labs CBC and Chem 7: 02/01/22 17:25 02/01/22 20:04 Labs: Laboratory Results - last 24 hr 02/01/22 02/01/22 02/01/22 17:25 17:25 17:25 MCV 85.7 MCH 27.6 MCHC 32.2 RDW 15.2 Plt Count 259 MPV 11.7 Immature Gran % (Auto) 0.4 Neut % (Auto) 59.2 Lymph % (Auto) 26.9 [place] % (Auto) 11.2 H Eos % (Auto) 1.8 Baso % (Auto) 0.5 Lymph # (Auto) 2.6 [place] # (Auto) 1.1 Eos # (Auto) 0.2 Baso # (Auto) 0.1 Abs Immat Gran (auto) 0.04 H Absolute Neuts (auto) 5.8 Absolute Nucleated RBC 0.000 Nucleated RBC % (auto) 0.0 PT 13.9 H INR 1.2 H Anion Gap Estim Creat Clear Calc Estimated GFR Random Glucose Lactic Acid Calcium Total Bilirubin AST ALT Alkaline Phosphatase Troponin I High Sens B-Natriuretic Peptide Total Protein Albumin Urine Color Urine Appearance Urine pH Ur Specific [place] Urine Protein Urine Glucose (UA) Urine Ketones Urine Blood Urine Nitrite Ur Leukocyte Esterase Urine RBC Urine WBC Ur Squamous Epith Cells Urine Bacteria Hyaline Casts Influenza Type A (PCR) NEGATIVE Influenza Type B (PCR) NEGATIVE RSV RNA Qual (PCR) NEGATIVE SARS-CoV-2 RNA (RT-PCR) NEGATIVE 02/01/22 02/01/22 02/01/22 17:25 17:25 17:26 MCV MCH MCHC RDW Plt Count MPV Immature Gran % (Auto) Neut % (Auto) Lymph % (Auto) [place] % (Auto) Eos % (Auto) Baso % (Auto) Lymph # (Auto) [place] # (Auto) Eos # (Auto) Baso # (Auto) Abs Immat Gran (auto) Absolute Neuts (auto) Absolute Nucleated RBC Nucleated RBC % (auto) PT INR Anion Gap Estim Creat Clear Calc Estimated GFR Random Glucose Lactic Acid 1.6 Calcium Total Bilirubin AST ALT Alkaline Phosphatase Troponin I High Sens 210.6 H* B-Natriuretic Peptide 269 H Total Protein Albumin Urine Color Urine Appearance Urine pH Ur Specific [place] Urine Protein Urine Glucose (UA) Urine Ketones Urine Blood Urine Nitrite Ur Leukocyte Esterase Urine RBC Urine WBC Ur Squamous Epith Cells Urine Bacteria Hyaline Casts Influenza Type A (PCR) Influenza Type B (PCR) RSV RNA Qual (PCR) SARS-CoV-2 RNA (RT-PCR) 02/01/22 02/01/22 02/01/22 19:20 20:04 20:04 MCV MCH MCHC RDW Plt Count MPV Immature Gran % (Auto) Neut % (Auto) Lymph % (Auto) [place] % (Auto) Eos % (Auto) Baso % (Auto) Lymph # (Auto) [place] # (Auto) Eos # (Auto) Baso # (Auto) Abs Immat Gran (auto) Absolute Neuts (auto) Absolute Nucleated RBC Nucleated RBC % (auto) PT INR Anion Gap 23 H Estim Creat Clear Calc 7.3 Estimated GFR 7 Random Glucose 97 Lactic Acid Calcium 9.5 Total Bilirubin 0.6 AST 12 ALT 7 Alkaline Phosphatase 119 H D Troponin I High Sens 160.1 H* B-Natriuretic Peptide Total Protein 7.1 Albumin 3.4 L Urine Color Yellow Urine Appearance Cloudy Urine pH 5.5 Ur Specific [place] 1.015 Urine Protein 100 (2+) H Urine Glucose (UA) Negative Urine Ketones Negative Urine Blood Small (1+) H Urine Nitrite Negative Ur Leukocyte Esterase Large (3+) H Urine RBC 0-2 Urine WBC >50 H Ur Squamous Epith Cells 0-2 Urine Bacteria 4+ Hyaline Casts 3-5 Influenza Type A (PCR) Influenza Type B (PCR) RSV RNA Qual (PCR) SARS-CoV-2 RNA (RT-PCR) Imaging Radiologist's Impressions: Impressions Abdomen/Pelvis CT 02/01/22 21:05 IMPRESSION: 1. A cause for the patient's abdominal pain and chest pain has not been found. 2. Incidental note made of thyromegaly, old uterine fibroids, degenerative changes in the spine and a small defect in the sternum. 3. Incidental note made of a 3 mm left upper lobe nodule, a Dillard catheter in the thick-walled bladder, moderate stool burden and appendicolith. No evidence of appendicitis. 4. 1.4 cm sclerotic lesion left hemisacrum. Fleischner guidelines were followed. Chest CT 02/01/22 21:05 IMPRESSION: 1. A cause for the patient's abdominal pain and chest pain has not been found. 2. Incidental note made of thyromegaly, old uterine fibroids, degenerative changes in the spine and a small defect in the sternum. 3. Incidental note made of a 3 mm left upper lobe nodule, a Dillard catheter in the thick-walled bladder, moderate stool burden and appendicolith. No evidence of appendicitis. 4. 1.4 cm sclerotic lesion left hemisacrum. Fleischner guidelines were followed. Assessment and Plan (1) Encephalopathy: Status: Acute (2) Acute on chronic renal failure: Status: Acute (3) Elevated troponin: Status: Acute (4) UTI (urinary tract infection): Status: Acute (5) Dehydration: Status: Acute Plan 71-year-old female with history of dementia who comes from [facility] with mentioned past medical history as above who presents to the hospital with encephalopathy, weakness, and fatigue found to encephalopathy likely secondary to infection # encephalopathy - acute on chronic - sent in from [facility] for altered mental status - likely toxic metabolic in the setting of acute infection - will treat underlying cause, IV fluids, IV antibiotics - follow mentation # acute UTI -positive UA - with encephalopathy - will treat with IV antibiotics - follow cultures # acute on chronic renal failure - likely secondary to dehydration - IV fluid - follow BMP # elevated troponin - unable to assess for any chest pain - no EKG changes suggestive of ACS - trended down # dehydration - has significant evidence on physical exam of dehydration with dry mucosal membrane as well as CHAVEZ - will treat with IV fluids This time will continue her other home medications once reviewed by pharmacy DVT prophylaxis: Heparin subQ Given encephalopathy, as well as acute infection patient require minimum 2 night inpatient hospital stay for further management and monitoring. Quality Stroke Does the patient have a stroke diagnosis?: No VTE Prior VTE?: No VTE Risk Level:: Medical - moderate - high VTE Device Contraindication: Treatment Not Indicated VTE Drug Contraindication: N/A - Med Ordered
[2022-02-02] VITALS: BP 94/62; PULSE 75; RESP 18; TEMP 36.2; O2SAT 96
[2022-02-02] MEDS: Lactated Ringers 1,000 ML 100 ML IVCONT ×3 (01:23→20:45)
[2022-02-02] MEDS: Heparin Sodium,Porcine 5,000 UNIT/ML VIAL 5000 UNIT SUBCUT ×3 (01:23→22:26)
[2022-02-02] MEDS: Sodium Phosphate,Mono-Dibasic 133 ML ENEMA PR (01:32)
[2022-02-02 03:35] VITALS: BP 113/61; PULSE 74; RESP 18; TEMP 36.4; O2SAT 96
--- NOTE | 2022-02-02 07:23 | PHA.MEDREC ---
Pharmacy Consult ? Medication Reconciliation Pharmacy has completed the medication reconciliation.
[2022-02-02] MEDS: polyethylene glycoL 3350 17 GM POWD.PACK PO (08:13)
[2022-02-02 08:14] VITALS: RESP 14
--- NOTE | 2022-02-02 10:24 | MHC.CM.PN ---
PATIENT IS A RESDIENT AT [facility]. HCP ON FILE AND VERIFIED. NO ANSWER AT PRIMARY HCP HEMAL ([phone]) CALL TO SECONDARY HCP ABENA (SPOUSE) @ [phone]. ABENA ASKS THAT IMM BE DELIVERED BACK TO [facility] WITH PATIENT. CASE MANAGEMENT FOLLOWING. IMM 02/02 IN MEDICAL RECORD BIN ON THIRD FLOOR/MED SURG UNIT
[2022-02-02 10:48] LABS: Glucose, Whole Blood 126 mg/dL (60-115)
--- NOTE | 2022-02-02 12:30 | P.PNIM_ITS ---
Subjective Subjective Date of Service: 02/02/22 Interval History: Seen and evaluated Alert but not responsive, nonverbal Reported restlessness overnight by the nursing staff No other overnight events Review of Systems Review of Systems: Yes Unobtainable due to mental status Physical Exam Vital Signs: Vital Signs: Last Vital Signs Temp 97.5 F 02/02/22 03:35 Pulse 74 02/02/22 03:35 Resp 14 02/02/22 08:14 BP 113/61 02/02/22 03:35 Pulse Ox 96 02/02/22 03:35 O2 Del Method 02/02/22 03:35 BMI result Body Mass Index 22.3 Const: Other: Constitutional : Alert with stimulation, nonverbal, not in distress Neck : Normal inspection, Supple Cardiovascular : RRR, no JVP, no lower extremity edema Respiratory : fair bilateral air entry, no crackles, wheezes or rhonchi Gastrointestinal: soft, lax, Normal bowel sounds, Non tender Skin : Warm, Dry Neurological : Alert, nonverbal to assess orientation, moving all extremities Objective Data Active Medications Acetaminophen (Acetaminophen 325 Mg Tablet) 650 mg PO Q6H PRN PRN Reason: Pain, Mild (Pain Scale 1-3) Atorvastatin Calcium (Atorvastatin Calcium 10 Mg Tablet) 10 mg PO DAILY [facility] Clonidine (Clonidine 0.1 Mg Patch.Tdwk) 0.1 mg TRANSDERMA Q7D [facility]; Protocol Diazepam (Diazepam 2 Mg Tablet) 0.5 mg PO BID [facility] Docusate Sodium (Docusate Sodium 100 Mg Capsule) 100 mg PO DAILY PRN PRN Reason: Constipation Furosemide (Furosemide 20 Mg Tablet) 20 mg PO DAILY [facility]; Protocol Heparin Sodium (Porcine) (Heparin Sodium,Porcine 5,000 Unit/Ml Vial) 5,000 unit SUBCUT Q12H [facility] Last Admin: 02/02/22 11:18 Dose: 5,000 unit Documented By: PATSY Lactated Ringer's (Lr) 1,000 mls @ 100 mls/hr IVCONT .Q10H [facility] Last Admin: 02/02/22 10:46 Dose: 100 mls/hr Documented By: PATSY Ceftriaxone Sodium 1 gm/ (Sodium Chloride) 50 mls @ 100 mls/hr IV Q24H [facility] Metoprolol Tartrate (Metoprolol Tartrate 12.5 Mg Halftab) 12.5 mg PO BID [place]; Protocol Mirtazapine (Mirtazapine 30 Mg Tablet) 30 mg PO BEDTIME [facility] Nystatin (Nystatin Powder 15 Gm Bottle) 1 appl TOPICAL BID [place]; Protocol Ondansetron HCl (Ondansetron Hcl 4 Mg/2 Ml Vial) 4 mg IVPUSH Q8H PRN PRN Reason: Nausea and Vomiting Oxcarbazepine (Oxcarbazepine 300 Mg Tablet) 300 mg PO BID [facility] Perphenazine (Perphenazine 2 Mg Tablet) 2 mg PO BID [facility] Perphenazine (Perphenazine 4 Mg Tablet) 4 mg PO BID [facility] Polyethylene Glycol (Polyethylene Glycol 3350 17 Gm Powd.Pack) 17 gm PO DAILY [facility] Last Admin: 02/02/22 08:13 Dose: 17 gm Documented By: PATSY Senna (Sennosides 8.6 Mg Tablet) 8.6 mg PO DAILY PRN PRN Reason: Constipation Sodium Bicarbonate (Sodium Bicarbonate 650 Mg Tablet) 650 mg PO TID [facility] Sodium Chloride (0.9 % Sodium Chloride Flush 3 Ml Syringe) 3 ml IVFLUSH QSHIFT [facility] Last Admin: 02/02/22 08:11 Dose: Not Given Documented By: PATSY Non-Admin Reason: IV Running Sodium Zirconium Cyclosilicate (Sodium Zirconium Cyclosilicate 10 Gm Powd.Pack) 20 gm PO DAILY [facility] Vitamin D (Cholecalciferol (Vitamin D3) 25 Mcg Tablet) 50 mcg PO DAILY [facility] Labs CBC & Chem 7: 02/01/22 17:25 02/01/22 20:04 Labs: Laboratory Results - last 24 hr 02/01/22 02/01/22 02/01/22 17:25 17:25 17:25 MCV 85.7 MCH 27.6 MCHC 32.2 RDW 15.2 Plt Count 259 MPV 11.7 Immature Gran % (Auto) 0.4 Neut % (Auto) 59.2 Lymph % (Auto) 26.9 [place] % (Auto) 11.2 H Eos % (Auto) 1.8 Baso % (Auto) 0.5 Lymph # (Auto) 2.6 [place] # (Auto) 1.1 Eos # (Auto) 0.2 Baso # (Auto) 0.1 Abs Immat Gran (auto) 0.04 H Absolute Neuts (auto) 5.8 Absolute Nucleated RBC 0.000 Nucleated RBC % (auto) 0.0 PT 13.9 H INR 1.2 H Anion Gap Estim Creat Clear Calc Estimated GFR POC Glucose Random Glucose Lactic Acid Calcium Total Bilirubin AST ALT Alkaline Phosphatase Troponin I High Sens B-Natriuretic Peptide Total Protein Albumin Urine Color Urine Appearance Urine pH Ur Specific [place] Urine Protein Urine Glucose (UA) Urine Ketones Urine Blood Urine Nitrite Ur Leukocyte Esterase Urine RBC Urine WBC Ur Squamous Epith Cells Urine Bacteria Hyaline Casts Influenza Type A (PCR) NEGATIVE Influenza Type B (PCR) NEGATIVE RSV RNA Qual (PCR) NEGATIVE SARS-CoV-2 RNA (RT-PCR) NEGATIVE 02/01/22 02/01/22 02/01/22 17:25 17:25 17:26 MCV MCH MCHC RDW Plt Count MPV Immature Gran % (Auto) Neut % (Auto) Lymph % (Auto) [place] % (Auto) Eos % (Auto) Baso % (Auto) Lymph # (Auto) [place] # (Auto) Eos # (Auto) Baso # (Auto) Abs Immat Gran (auto) Absolute Neuts (auto) Absolute Nucleated RBC Nucleated RBC % (auto) PT INR Anion Gap Estim Creat Clear Calc Estimated GFR POC Glucose Random Glucose Lactic Acid 1.6 Calcium Total Bilirubin AST ALT Alkaline Phosphatase Troponin I High Sens 210.6 H* B-Natriuretic Peptide 269 H Total Protein Albumin Urine Color Urine Appearance Urine pH Ur Specific [place] Urine Protein Urine Glucose (UA) Urine Ketones Urine Blood Urine Nitrite Ur Leukocyte Esterase Urine RBC Urine WBC Ur Squamous Epith Cells Urine Bacteria Hyaline Casts Influenza Type A (PCR) Influenza Type B (PCR) RSV RNA Qual (PCR) SARS-CoV-2 RNA (RT-PCR) 02/01/22 02/01/22 02/01/22 19:20 20:04 20:04 MCV MCH MCHC RDW Plt Count MPV Immature Gran % (Auto) Neut % (Auto) Lymph % (Auto) [place] % (Auto) Eos % (Auto) Baso % (Auto) Lymph # (Auto) [place] # (Auto) Eos # (Auto) Baso # (Auto) Abs Immat Gran (auto) Absolute Neuts (auto) Absolute Nucleated RBC Nucleated RBC % (auto) PT INR Anion Gap 23 H Estim Creat Clear Calc 7.3 Estimated GFR 7 POC Glucose Random Glucose 97 Lactic Acid Calcium 9.5 Total Bilirubin 0.6 AST 12 ALT 7 Alkaline Phosphatase 119 H D Troponin I High Sens 160.1 H* B-Natriuretic Peptide Total Protein 7.1 Albumin 3.4 L Urine Color Yellow Urine Appearance Cloudy Urine pH 5.5 Ur Specific [place] 1.015 Urine Protein 100 (2+) H Urine Glucose (UA) Negative Urine Ketones Negative Urine Blood Small (1+) H Urine Nitrite Negative Ur Leukocyte Esterase Large (3+) H Urine RBC 0-2 Urine WBC >50 H Ur Squamous Epith Cells 0-2 Urine Bacteria 4+ Hyaline Casts 3-5 Influenza Type A (PCR) Influenza Type B (PCR) RSV RNA Qual (PCR) SARS-CoV-2 RNA (RT-PCR) 02/02/22 10:45 MCV MCH MCHC RDW Plt Count MPV Immature Gran % (Auto) Neut % (Auto) Lymph % (Auto) [place] % (Auto) Eos % (Auto) Baso % (Auto) Lymph # (Auto) [place] # (Auto) Eos # (Auto) Baso # (Auto) Abs Immat Gran (auto) Absolute Neuts (auto) Absolute Nucleated RBC Nucleated RBC % (auto) PT INR Anion Gap Estim Creat Clear Calc Estimated GFR POC Glucose 126 H Random Glucose Lactic Acid Calcium Total Bilirubin AST ALT Alkaline Phosphatase Troponin I High Sens B-Natriuretic Peptide Total Protein Albumin Urine Color Urine Appearance Urine pH Ur Specific [place] Urine Protein Urine Glucose (UA) Urine Ketones Urine Blood Urine Nitrite Ur Leukocyte Esterase Urine RBC Urine WBC Ur Squamous Epith Cells Urine Bacteria Hyaline Casts Influenza Type A (PCR) Influenza Type B (PCR) RSV RNA Qual (PCR) SARS-CoV-2 RNA (RT-PCR) Assessment and Plan (1) Acute on chronic renal failure: Status: Acute (2) UTI (urinary tract infection): Status: Acute (3) Encephalopathy: Status: Acute Plan 71-year-old female with history of dementia who comes from [facility] with mentioned past medical history as above who presents to the hospital with encephalopathy, weakness, and fatigue found to encephalopathy likely secondary to infection # acute on chronic toxic metabolic encephalopathy Likely secondary to acute infection, advanced dementia Continue IV fluids Continue IV antibiotics Recurrent 3 orientation # acute UTI pending urine culture Continue IV antibiotic # acute on chronic renal failure stage IV Creatinine up to 5.8 Continue IV fluid follow BMP Get Nephrology evaluation # elevated troponin Patient did not complain of chest pain but she is altered at the same time Troponin trended down, no EKG changes suggestive of ACS Monitor for any chest pain to repeat EKG # hypertension Continue metoprolol, Lasix DVT prophylaxis: Heparin subQ Given encephalopathy, UTI and Jose R I patient require overnight inpatient hospital stay for further management and monitoring of kidney function and mentation Quality Stroke Does the patient have a stroke diagnosis?: No VTE Prior VTE?: No VTE Risk Level:: Medical - moderate - high VTE Device Contraindication: Treatment Not Indicated VTE Drug Contraindication: N/A - Med Ordered
[2022-02-02 12:41] VITALS: RESP 14
[2022-02-02] MEDS: cloNIDine 0.1 MG PATCH.TDWK TRANSDERMA (13:35)
[2022-02-02 13:58] LABS: Anion Gap 24 (12-20); Blood Urea Nitrogen 87 mg/dL (9-16); Calcium 9.2 mg/dL (8.4-10.2); Carbon Dioxide 14 mmol/L (22-29); Chloride 108 mmol/L (96-108); Creatinine Clr Calc Pharmacy 8.8; Estimated Glomerular Filt Rate 9; Glucose Random 139 mg/dL (60-115); Sodium 142 mmol/L (135-145)
[2022-02-02 15:44] VITALS: BP 115/59; PULSE 70; RESP 17; TEMP 36.2; O2SAT 96
[2022-02-02 18:55] VITALS: BP 119/61; PULSE 79; RESP 20; TEMP 36.2; O2SAT 97
[2022-02-02] MEDS: Sodium Bicarbonate 650 MG TABLET PO (20:45)
[2022-02-02] MEDS: cefTRIAXone sodium 1 GM in 0.9 % Sodium Chloride 50 ML IV (20:45)
[2022-02-02] MEDS: Perphenazine 2 MG TABLET PO (20:46)
[2022-02-02] MEDS: Perphenazine 4 MG TABLET PO (20:46)
[2022-02-02] MEDS: Mirtazapine 30 MG TABLET PO (20:46)
[2022-02-02] MEDS: Metoprolol Tartrate 12.5 MG HALFTAB PO (20:46)
[2022-02-02] MEDS: OXcarbazepine 300 MG TABLET PO (20:46)
[2022-02-02] MEDS: diazePAM 2 MG TABLET 0.5 MG PO (20:46)
[2022-02-03] VITALS: BP 99/57; PULSE 64; RESP 16; TEMP 36.1; O2SAT 99
[2022-02-03 04:00] VITALS: BP 94/52; PULSE 66; RESP 16; TEMP 36.1; O2SAT 98
[2022-02-03 06:00] LABS: Hematocrit 36.6 % (37.0-47.0); Hemoglobin 11.7 g/dl (12.0-16.0); Mean Corpuscular Hemoglobin 27.7 pg (27.0-33.0); Mean Corpuscular Volume 86.7 fL (80.0-98.0); Platelet Count 153 X10*3/uL (160-400); Red Blood Count 4.22 X10*6/uL (4.20-5.50); Red Cell Distribution Width 14.7 % (11.0-16.0)
[2022-02-03] MEDS: Lactated Ringers 1,000 ML 100 ML IVCONT ×2 (06:18→16:07)
[2022-02-03 06:45] LABS: Anion Gap 21 (12-20); Blood Urea Nitrogen 75 mg/dL (9-16); Calcium 8.5 mg/dL (8.4-10.2); Carbon Dioxide 17 mmol/L (22-29); Chloride 109 mmol/L (96-108); Creatinine Clr Calc Pharmacy 11.1; Estimated Glomerular Filt Rate 11; Glucose Random 86 mg/dL (60-115); Potassium 3.6 mmol/L (3.3-5.1); Sodium 143 mmol/L (135-145)
[2022-02-03 07:46] VITALS: BP 121/59; PULSE 64; RESP 18; TEMP 36; O2SAT 99
--- NOTE | 2022-02-03 10:34 | PC.NURSE ---
Patient is very confused, did not eat or take any AM meds. Dr Baird made aware.
[2022-02-03 11:32] VITALS: BP 128/65; PULSE 64; RESP 18; TEMP 36.1; O2SAT 98
--- NOTE | 2022-02-03 12:04 | MHC.CM.PN ---
PATIENT UPDATES SENT TO [facility]. CASE MANAGEMENT FOLLOWING - NO PLAN FOR DC TODAY
[2022-02-03] MEDS: Sodium Bicarbonate 650 MG TABLET PO ×2 (12:51→20:42)
[2022-02-03] MEDS: Heparin Sodium,Porcine 5,000 UNIT/ML VIAL 5000 UNIT SUBCUT (12:52)
--- NOTE | 2022-02-03 15:16 | P.PNIM_ITS ---
Subjective Subjective Date of Service: 02/03/22 Interval History: the patient was seen and evaluated this morning Laying in bed, more alert and interactive but overall confused and does not think she is in the hospital No reported other overnight events. Systemic review: No fever, chills but reports feeling weakness No chest pain, palpitation No shortness of breath or coughing No abdominal pain, nausea or vomiting No urinary symptoms No reported rash Physical Exam Vital Signs: Vital Signs: Last Vital Signs Temp 96.9 F 02/03/22 11:32 Pulse 64 02/03/22 11:32 Resp 18 02/03/22 11:32 BP 128/65 02/03/22 11:32 Pulse Ox 98 02/03/22 11:32 O2 Del Method 02/03/22 11:32 BMI result Body Mass Index 22.3 Const: Other: Constitutional : Alert, answering with few questions, looks frail, not in distress Neck : Normal inspection, Supple Cardiovascular : RRR, no JVP, no lower extremity edema Respiratory : fair bilateral air entry, no crackles, wheezes or rhonchi Gastrointestinal: soft, lax, Normal bowel sounds, Non tender Skin : Warm, Dry Neurological : Alert, alert to self only otherwise disoriented, moving all extremities Objective Data Active Medications Acetaminophen (Acetaminophen 325 Mg Tablet) 650 mg PO Q6H PRN PRN Reason: Pain, Mild (Pain Scale 1-3) Atorvastatin Calcium (Atorvastatin Calcium 10 Mg Tablet) 10 mg PO DAILY [facility] Last Admin: 02/03/22 09:03 Dose: Not Given Documented By: ADÁN Non-Admin Reason: Patient Refused Clonidine (Clonidine 0.1 Mg Patch.Tdwk) 0.1 mg TRANSDERMA Q7D [facility]; Protocol Last Admin: 02/02/22 13:35 Dose: 0.1 mg Documented By: TODDOPELia Diazepam (Diazepam 2 Mg Tablet) 0.5 mg PO BID [facility] Last Admin: 02/03/22 09:04 Dose: Not Given Documented By: ADÁN Non-Admin Reason: Patient Refused Docusate Sodium (Docusate Sodium 100 Mg Capsule) 100 mg PO DAILY PRN PRN Reason: Constipation Furosemide (Furosemide 20 Mg Tablet) 20 mg PO DAILY [facility]; Protocol Last Admin: 02/03/22 09:04 Dose: Not Given Documented By: ADÁN Non-Admin Reason: Patient Refused Heparin Sodium (Porcine) (Heparin Sodium,Porcine 5,000 Unit/Ml Vial) 5,000 unit SUBCUT Q12H [facility] Last Admin: 02/03/22 12:52 Dose: 5,000 unit Documented By: ADÁN Lactated Ringer's (Lr) 1,000 mls @ 100 mls/hr IVCONT .Q10H [facility] Last Admin: 02/03/22 06:18 Dose: 100 mls/hr Documented By: JOCELYNE Ceftriaxone Sodium 1 gm/ (Sodium Chloride) 50 mls @ 100 mls/hr IV Q24H [facility] Last Infusion: 02/02/22 21:39 Dose: 0 mls/hr Documented By: JOCELYNE Metoprolol Tartrate (Metoprolol Tartrate 12.5 Mg Halftab) 12.5 mg PO BID [facility]; Protocol Last Admin: 02/03/22 09:04 Dose: Not Given Documented By: ADÁN Non-Admin Reason: Patient Refused Mirtazapine (Mirtazapine 30 Mg Tablet) 30 mg PO BEDTIME [facility] Last Admin: 02/02/22 20:46 Dose: 30 mg Documented By: JOCELYNE Nystatin (Nystatin Powder 15 Gm Bottle) 1 appl TOPICAL BID [facility]; Protocol Last Admin: 02/03/22 09:08 Dose: Not Given Documented By: ADÁN Non-Luis Miguel Reason: not available,will call pharmacy Ondansetron HCl (Ondansetron Hcl 4 Mg/2 Ml Vial) 4 mg IVPUSH Q8H PRN PRN Reason: Nausea and Vomiting Oxcarbazepine (Oxcarbazepine 300 Mg Tablet) 300 mg PO BID [facility] Last Admin: 02/03/22 09:04 Dose: Not Given Documented By: ADÁN Non-Admin Reason: Patient Refused Perphenazine (Perphenazine 2 Mg Tablet) 2 mg PO BID [facility] Last Admin: 02/03/22 09:04 Dose: Not Given Documented By: ADÁN Non-Admin Reason: Patient Refused Perphenazine (Perphenazine 4 Mg Tablet) 4 mg PO BID [facility] Last Admin: 02/03/22 09:05 Dose: Not Given Documented By: ADÁN Non-Admin Reason: Patient Refused Polyethylene Glycol (Polyethylene Glycol 3350 17 Gm Powd.Pack) 17 gm PO DAILY [facility] Last Admin: 02/03/22 09:05 Dose: Not Given Documented By: ADÁN Non-Admin Reason: Patient Refused Senna (Sennosides 8.6 Mg Tablet) 8.6 mg PO DAILY PRN PRN Reason: Constipation Sodium Bicarbonate (Sodium Bicarbonate 650 Mg Tablet) 650 mg PO TID [facility] Last Admin: 02/03/22 12:51 Dose: 650 mg Documented By: ADÁN Sodium Chloride (0.9 % Sodium Chloride Flush 3 Ml Syringe) 3 ml IVFLUSH QSHIFT [facility] Last Admin: 02/03/22 09:03 Dose: Not Given Documented By: ADÁN Non-Admin Reason: IV Running Sodium Zirconium Cyclosilicate (Sodium Zirconium Cyclosilicate 10 Gm Powd.Pack) 20 gm PO DAILY [facility] Last Admin: 02/03/22 09:05 Dose: Not Given Documented By: ADÁN Non-Admin Reason: Patient Refused Vitamin D (Cholecalciferol (Vitamin D3) 25 Mcg Tablet) 50 mcg PO DAILY [facility] Last Admin: 02/03/22 09:04 Dose: Not Given Documented By: ADÁN Non-Admin Reason: Patient Refused Labs CBC & Chem 7: 02/03/22 05:15 02/03/22 05:15 Labs: Laboratory Results - last 24 hr 02/03/22 02/03/22 05:15 05:15 MCV 86.7 MCH 27.7 MCHC 32.0 RDW 14.7 Plt Count 153 L D MPV 12.0 Absolute Nucleated RBC 0.000 Nucleated RBC % (auto) 0.0 Anion Gap 21 H Estim Creat Clear Calc 11.1 Estimated GFR 11 Random Glucose 86 Calcium 8.5 D Microbiology Microbiology Results: Microbiology 02/01/22 20:22 Urine Culture - Final Urine clean catch - Urine solano top Escherichia coli 02/01/22 17:26 Blood Culture - Preliminary Blood - Venous No growth after 24 hours. 02/01/22 16:56 Blood Culture - Preliminary Blood - Venous No growth after 24 hours. Assessment and Plan (1) Encephalopathy: Status: Acute (2) Acute on chronic renal failure: Status: Acute (3) UTI (urinary tract infection): Status: Acute (4) Metabolic acidosis, increased anion gap: Status: Acute Plan 71-year-old female with history of dementia who comes from [facility] with mentioned past medical history as above who presents to the hospital with encephalopathy, weakness, and fatigue found to encephalopathy likely secondary to infection # acute on chronic toxic metabolic encephalopathy Improving Likely secondary to acute infection, advanced dementia Continue IV fluids Continue IV antibiotics Recurrent reorientation # acute UTI E coli in urine culture Continue IV antibiotic # acute on chronic renal failure stage IV with AGMA Creatinine trended down 3.7 Bicarb at 17 Continue sodium bicarb, home dose Continue IV fluid follow BMP Pending Nephrology evaluation # elevated troponin No chest pain, Troponin trended down, no EKG changes suggestive of ACS Monitor for any chest pain to repeat EKG # hypertension Continue metoprolol, Lasix DVT prophylaxis: Heparin subQ Given encephalopathy, UTI and Jose R I patient require overnight inpatient hospital stay for further management and monitoring of kidney function and mentation Quality Stroke Does the patient have a stroke diagnosis?: No VTE Prior VTE?: No VTE Risk Level:: Medical - moderate - high VTE Device Contraindication: Treatment Not Indicated VTE Drug Contraindication: N/A - Med Ordered
[2022-02-03 15:22] VITALS: BP 120/68; PULSE 66; RESP 16; TEMP 36.1; O2SAT 97
[2022-02-03 15:31] VITALS: BMI 22.3
--- NOTE | 2022-02-03 15:49 | MHC.CLN ---
NUTRITION CONSULT FOR SKIN INTEGRITY. JARED=12; NO OPEN AREAS. VARIABLE INTAKE AT MEALS. DIET=NDD2. ADDING ENSURE BID TO PROVIDE ADDITIONAL [address] KCALS, [address] TO FOLLOW WEEKLY.
--- NOTE | 2022-02-03 16:52 | P.CONNP_ITS ---
History of Present Illness Reason for Consult Consult date: 02/03/22 Reason for consult: CHAVEZ Requesting physician: Khang Baird Chief Complaint Chief complaint: UTI, CHAVEZ History of Present Illness Narrative: Ms. 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 Patient has baseline dementia she answers yes and no questions.? Patient was brought in from [facility] for increased weakness and fatigue as well as altered mental status.? On arrival to the ED patient was found to have no acute significant abnormal vitals. Labs are significant for sodium of 146, BUN of 97, and creatinine of 5.87. UA positive for leukocyte Estrace, as well as WBC. Abdomen pelvic CT shows no significant cause of the patient's abdominal pain and chest pain thyromegaly, old uterine fibroid, 3 mm left upper lobe nodule, thick- walled bladder, moderate stool burden an appendicolith with no evidence appendicitis.? And 1.4 cm sclerotic lesion of left hank sacrum Review of Systems Review of Systems Yes Unobtainable due to mental condition PMFSH Past Medical History Medical History Accidental poisoning Anemia Anxiety Cataract Catatonic disorder due to known physiological condition CKD (chronic kidney disease) stage 4, GFR 15-29 ml/min COPD (chronic obstructive pulmonary disease) Delirium Diabetes insipidus Diabetes mellitus Disorientated Dysphagia Essential (primary) hypertension GERD (gastroesophageal reflux disease) Hyperkalemia Hyperosmolality Major depressive disorder Manic behavior Metabolic encephalopathy Presbyopia Subarachnoid hemorrhage Venous thromboembolism (VTE) Family History Family History Father No problems noted. Mother No problems noted. Surgical History Surgical History History of lumpectomy of left breast (~05/2012) Social History Social History Household Members: Unknown / Unable to assess Housing: Unknown / Unable to assess Unable to assess alcohol history related to: Unable to respond Alcohol intake: never Patient Tobacco Use Status: Tobacco use Unknown Meds Allergies Allergy/AdvReac Type Severity Reaction Status Date / Time oxycodone [OXYCODONE] Allergy Unknown UNK Verified 01/25/20 18:12 pregabalin [PREGABALIN] Allergy Unknown UNK Verified 01/25/20 18:12 tramadol [TRAMADOL] Allergy Unknown UNK Verified 01/25/20 18:12 Active Medications: Current Medications Acetaminophen (Acetaminophen 325 Mg Tablet) 650 mg PO Q6H PRN PRN Reason: Pain, Mild (Pain Scale 1-3) Atorvastatin Calcium (Atorvastatin Calcium 10 Mg Tablet) 10 mg PO DAILY [facility] Last Admin: 02/03/22 09:03 Dose: Not Given Clonidine (Clonidine 0.1 Mg Patch.Tdwk) 0.1 mg TRANSDERMA Q7D [facility]; Protocol Last Admin: 02/02/22 13:35 Dose: 0.1 mg Diazepam (Diazepam 2 Mg Tablet) 0.5 mg PO BID [facility] Last Admin: 02/03/22 09:04 Dose: Not Given Docusate Sodium (Docusate Sodium 100 Mg Capsule) 100 mg PO DAILY PRN PRN Reason: Constipation Heparin Sodium (Porcine) (Heparin Sodium,Porcine 5,000 Unit/Ml Vial) 5,000 unit SUBCUT Q12H [facility] Last Admin: 02/03/22 12:52 Dose: 5,000 unit Lactated Ringer's (Lr) 1,000 mls @ 100 mls/hr IVCONT .Q10H [facility] Last Admin: 02/03/22 16:07 Dose: 100 mls/hr Ceftriaxone Sodium 1 gm/ (Sodium Chloride) 50 mls @ 100 mls/hr IV Q24H [facility] Last Infusion: 02/02/22 21:39 Dose: Infused Metoprolol Tartrate (Metoprolol Tartrate 12.5 Mg Halftab) 12.5 mg PO BID [facility]; Protocol Last Admin: 02/03/22 09:04 Dose: Not Given Mirtazapine (Mirtazapine 30 Mg Tablet) 30 mg PO BEDTIME [facility] Last Admin: 02/02/22 20:46 Dose: 30 mg Nystatin (Nystatin Powder 15 Gm Bottle) 1 appl TOPICAL BID [facility]; Protocol Last Admin: 02/03/22 09:08 Dose: Not Given Ondansetron HCl (Ondansetron Hcl 4 Mg/2 Ml Vial) 4 mg IVPUSH Q8H PRN PRN Reason: Nausea and Vomiting Oxcarbazepine (Oxcarbazepine 300 Mg Tablet) 300 mg PO BID [facility] Last Admin: 02/03/22 09:04 Dose: Not Given Perphenazine (Perphenazine 2 Mg Tablet) 2 mg PO BID [facility] Last Admin: 02/03/22 09:04 Dose: Not Given Perphenazine (Perphenazine 4 Mg Tablet) 4 mg PO BID [facility] Last Admin: 02/03/22 09:05 Dose: Not Given Polyethylene Glycol (Polyethylene Glycol 3350 17 Gm Powd.Pack) 17 gm PO DAILY [facility] Last Admin: 02/03/22 09:05 Dose: Not Given Senna (Sennosides 8.6 Mg Tablet) 8.6 mg PO DAILY PRN PRN Reason: Constipation Sodium Bicarbonate (Sodium Bicarbonate 650 Mg Tablet) 650 mg PO TID [facility] Last Admin: 02/03/22 12:51 Dose: 650 mg Sodium Chloride (0.9 % Sodium Chloride Flush 3 Ml Syringe) 3 ml IVFLUSH QSHIFT [facility] Last Admin: 02/03/22 16:08 Dose: Not Given Vitamin D (Cholecalciferol (Vitamin D3) 25 Mcg Tablet) 50 mcg PO DAILY [facility] Last Admin: 02/03/22 09:04 Dose: Not Given Home Medications Medication Instructions Recorded Confirmed Last Taken Type cholecalciferol (vitamin D3) 50 50 mcg PO DAILY 02/25/20 02/01/22 02/01/22 History mcg (2,000 unit) capsule clonidine 0.1 mg/24 hr weekly 1 patch transdermal NYE 02/25/20 02/02/22 Unknown History transdermal patch desipramine 50 mg tablet 50 mg PO BEDTIME 02/25/20 02/01/22 01/31/22 History glucagon 1 mg/0.2 mL subcutaneous 1 mg subcut Q15M PRN HYPOGLYCEMIC 02/25/20 02/01/22 Unknown History auto-injector EVENT melatonin 5 mg capsule 5 mg PO BEDTIME 02/25/20 02/01/22 Unknown History metoprolol tartrate 25 mg tablet 12.5 mg PO BID 02/25/20 02/01/22 02/01/22 History mirtazapine 30 mg tablet 30 mg PO BEDTIME 02/25/20 02/01/22 01/31/22 History diazepam 2 mg tablet 1 mg PO BID 02/01/22 02/01/22 02/01/22 History furosemide 20 mg tablet 20 mg PO DAILY 02/01/22 02/01/22 02/01/22 History haloperidol decanoate 50 mg/mL 30 mg IM Q14D 02/01/22 02/01/22 Unknown History intramuscular solution (Haldol Decanoate) nystatin 100,000 unit/gram topical 1 appl topical BID 02/01/22 02/01/22 02/01/22 History powder oxcarbazepine 300 mg/5 mL (60 300 mg PO BID 02/01/22 02/01/22 02/01/22 History mg/mL) oral suspension pantoprazole 40 mg tablet,delayed 40 mg PO DAILY 02/01/22 02/01/22 02/01/22 History release perphenazine 2 mg tablet 2 mg PO BID 02/01/22 02/01/22 02/01/22 History perphenazine 4 mg tablet 4 mg PO BID 02/01/22 02/01/22 02/01/22 History polymyxin B sulfate 10,000 1 drp ophthalmic (eye) QID 02/01/22 02/01/22 02/01/22 History unit-trimethoprim 1 mg/mL eye drops (Polytrim) sennosides 8.6 mg tablet (senna) 8.6 mg PO DAILY PRN Constipation 02/01/22 02/01/22 Unknown History simvastatin 20 mg tablet (Zocor) 40 mg PO DAILY 02/01/22 02/01/22 02/01/22 History sodium bicarbonate 650 mg tablet 650 mg PO TID 02/01/22 02/01/22 Unknown History sodium zirconium cyclosilicate 10 20 g PO DAILY 02/01/22 02/01/22 02/01/22 History gram oral powder packet (Lokelma) Physical Exam Vital Signs: Last Vital Signs Temp 97 F 02/03/22 15:22 Pulse 66 02/03/22 15:22 Resp 16 02/03/22 15:22 BP 120/68 02/03/22 15:22 Pulse Ox 97 02/03/22 15:22 O2 Del Method 02/03/22 15:22 BMI result Body Mass Index 22.3 Const Other: Constitutional : Alert, answering with few questions, looks frail, not in distress Neck : Normal inspection, Supple Cardiovascular : RRR, no JVP, no lower extremity edema Respiratory : fair bilateral air entry, no crackles, wheezes or rhonchi Gastrointestinal: soft, lax, Normal bowel sounds, Non tender Skin : Warm, Dry Neurological : Alert, alert to self only otherwise disoriented, moving all extremities Results Lab Results Result Diagrams: 02/03/22 05:15 02/03/22 05:15 Lab results: Chemistry 02/01/22 02/02/22 02/03/22 20:04 13:25 05:15 Sodium 146 H 142 143 Potassium 4.5 4.0 3.6 Carbon Dioxide 18 L 14 L 17 L BUN 97 H 87 H 75 H Creatinine 5.87 H* 4.85 H* 3.90 H Calcium 9.5 9.2 8.5 D Hematology 02/01/22 02/03/22 17:25 05:15 WBC 9.8 7.0 Hgb 14.7 11.7 L D Plt Count 259 153 L D Urinalysis 02/01/22 19:20 Urine Color Yellow Urine Appearance Cloudy Urine pH 5.5 Ur Specific [place] 1.015 Urine Protein 100 (2+) H Urine Glucose (UA) Negative Urine Ketones Negative Urine Blood Small (1+) H Urine Nitrite Negative Ur Leukocyte Esterase Large (3+) H Urine RBC 0-2 Urine WBC >50 H Ur Squamous Epith Cells 0-2 Hyaline Casts 3-5 Assessment and Plan (1) Encephalopathy: Status: Acute (2) Acute on chronic renal failure: Status: Acute (3) UTI (urinary tract infection): Status: Acute (4) Metabolic acidosis, increased anion gap: Status: Acute Plan Ms. 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 Labs are significant for sodium of 146, BUN of 97, and creatinine of 5.87. UA positive for leukocyte Estrace, as well as WBC. This is all in the setting of urosepsis. # CHAVEZ on advanced CKD stage IV BL Cr 2.0mg/dL in the setting of lithium nephrotoxicity and diabetic nephropa thy, follows Dr Oviedo CHAVEZ with Cr 5.5mg/dL in the setting of poor PO intake, hypovolemia, urosepsis with ecoli. U/A with hyaline casts. # Non-gap metabolic acidosis. known RTA with Nabicarb supplements chronically. # HTN chronically on clonidine Plan: - hold PO lasix - stop daily lokelma - c/w clonidine 0.1mg Patch - c/w NaBicarb 650mg TID - LR at 100cc/hr - monitor I/Os - renal panel daily - no indication for ROVING SIZER Procedures Date of Service Date of Service: 02/03/22
[2022-02-03] MEDS: Perphenazine 2 MG TABLET PO (20:42)
[2022-02-03] MEDS: OXcarbazepine 300 MG TABLET PO (20:42)
[2022-02-03] MEDS: Mirtazapine 30 MG TABLET PO (20:42)
[2022-02-03] MEDS: Metoprolol Tartrate 12.5 MG HALFTAB PO (20:42)
[2022-02-03] MEDS: cefTRIAXone sodium 1 GM in 0.9 % Sodium Chloride 50 ML IV (20:42)
[2022-02-03] MEDS: Perphenazine 4 MG TABLET PO (20:42)
[2022-02-03] MEDS: diazePAM 2 MG TABLET 0.5 MG PO (20:53)
[2022-02-04] VITALS: BP 155/84; PULSE 70; RESP 17; TEMP 36.1; O2SAT 96
[2022-02-04] MEDS: Lactated Ringers 1,000 ML 100 ML IVCONT ×3 (01:44→21:25)
[2022-02-04 08:00] VITALS: BP 164/75; PULSE 59; RESP 16; TEMP 36.1; O2SAT 98
[2022-02-04] MEDS: diazePAM 2 MG TABLET 0.5 MG PO (09:15)
[2022-02-04] MEDS: Sodium Bicarbonate 650 MG TABLET PO ×2 (09:16→15:21)
[2022-02-04] MEDS: Atorvastatin Calcium 10 MG TABLET PO (09:16)
[2022-02-04] MEDS: Perphenazine 2 MG TABLET PO (09:16)
[2022-02-04] MEDS: OXcarbazepine 300 MG TABLET PO (09:16)
[2022-02-04] MEDS: Metoprolol Tartrate 12.5 MG HALFTAB PO (09:16)
[2022-02-04] MEDS: Heparin Sodium,Porcine 5,000 UNIT/ML VIAL 5000 UNIT SUBCUT (09:16)
[2022-02-04] MEDS: Cholecalciferol (Vitamin D3) 25 MCG TABLET 50 MCG PO (09:16)
[2022-02-04] MEDS: Perphenazine 4 MG TABLET PO (09:18)
--- NOTE | 2022-02-04 11:59 | P.PNIM_ITS ---
Subjective Subjective Date of Service: 02/04/22 Interval History: the patient was seen and evaluated this morning Laying in bed, more alert and interactive but overall confused kidney function improving No reported other overnight events. Systemic review: No fever, chills but reports feeling weakness No chest pain, palpitation No shortness of breath or coughing No abdominal pain, nausea or vomiting No urinary symptoms No reported rash Physical Exam Vital Signs: Vital Signs: Last Vital Signs Temp 96.9 F 02/04/22 08:00 Pulse 59 02/04/22 08:00 Resp 16 02/04/22 08:00 BP 164/75 H 02/04/22 08:00 Pulse Ox 98 02/04/22 08:00 O2 Del Method 02/04/22 08:00 BMI result Body Mass Index 22.3 Const: Other: Constitutional : Alert, answering with few questions, looks frail, not in distress Neck : Normal inspection, Supple Cardiovascular : RRR, no JVP, no lower extremity edema Respiratory : fair bilateral air entry, no crackles, wheezes or rhonchi Gastrointestinal: soft, lax, Normal bowel sounds, Non tender Skin : Warm, Dry Neurological : Alert, alert to self only otherwise disoriented, moving all extremities Objective Data Active Medications Acetaminophen (Acetaminophen 325 Mg Tablet) 650 mg PO Q6H PRN PRN Reason: Pain, Mild (Pain Scale 1-3) Atorvastatin Calcium (Atorvastatin Calcium 10 Mg Tablet) 10 mg PO DAILY [facility] BEDS AT [facility] Last Admin: 02/04/22 09:16 Dose: 10 mg Documented By: PIPER Clonidine (Clonidine 0.1 Mg Patch.Tdwk) 0.1 mg TRANSDERMA Q7D [facility] 234 BEDS AT [facility]; Protocol Last Admin: 02/02/22 13:35 Dose: 0.1 mg Documented By: TODDOPELia Diazepam (Diazepam 2 Mg Tablet) 0.5 mg PO BID [facility] 234 BEDS AT [facility] Last Admin: 02/04/22 09:15 Dose: 0.5 mg Documented By: PIPER Docusate Sodium (Docusate Sodium 100 Mg Capsule) 100 mg PO DAILY PRN PRN Reason: Constipation Heparin Sodium (Porcine) (Heparin Sodium,Porcine 5,000 Unit/Ml Vial) 5,000 unit SUBCUT Q12H [facility] 234 BEDS AT [facility] Last Admin: 02/04/22 09:16 Dose: 5,000 unit Documented By: PIPER Lactated Ringer's (Lr) 1,000 mls @ 100 mls/hr IVCONT .Q10H [facility] 234 BEDS AT [facility] Last Admin: 02/04/22 01:44 Dose: 100 mls/hr Documented By: ELIN Ceftriaxone Sodium 1 gm/ (Sodium Chloride) 50 mls @ 100 mls/hr IV Q24H [facility]S [facility]CLUDE 234 BEDS AT THE [facility] Last Infusion: 02/03/22 21:21 Dose: 0 mls/hr Documented By: ELIN Metoprolol Tartrate (Metoprolol Tartrate 12.5 Mg Halftab) 12.5 mg PO BID [facility] 234 BEDS AT [facility]; Protocol Last Admin: 02/04/22 09:16 Dose: 12.5 mg Documented By: PIPER Mirtazapine (Mirtazapine 30 Mg Tablet) 30 mg PO BEDTIME [facility] 234 BEDS AT [facility] Last Admin: 02/03/22 20:42 Dose: 30 mg Documented By: ELIN Nystatin (Nystatin Powder 15 Gm Bottle) 1 appl TOPICAL BID [facility]CLUDE 234 BEDS AT [facility]; Protocol Last Admin: 02/04/22 09:28 Dose: Not Given Documented By: PIPER Non-Admin Reason: Unable to Scan Barcode Ondansetron HCl (Ondansetron Hcl 4 Mg/2 Ml Vial) 4 mg IVPUSH Q8H PRN PRN Reason: Nausea and Vomiting Oxcarbazepine (Oxcarbazepine 300 Mg Tablet) 300 mg PO BID [facility] 234 BEDS AT [facility] Last Admin: 02/04/22 09:16 Dose: 300 mg Documented By: PIPER Perphenazine (Perphenazine 2 Mg Tablet) 2 mg PO BID [facility]CLUDE 234 BEDS AT [facility] Last Admin: 02/04/22 09:16 Dose: 2 mg Documented By: PIPER Perphenazine (Perphenazine 4 Mg Tablet) 4 mg PO BID [facility]CLUDE 234 BEDS AT [facility] Last Admin: 02/04/22 09:18 Dose: 4 mg Documented By: PIPER Polyethylene Glycol (Polyethylene Glycol 3350 17 Gm Powd.Pack) 17 gm PO DAILY [facility]CLUDE 234 BEDS AT [facility] Last Admin: 02/03/22 09:05 Dose: Not Given Documented By: ADÁN Non-Admin Reason: Patient Refused Senna (Sennosides 8.6 Mg Tablet) 8.6 mg PO DAILY PRN PRN Reason: Constipation Sodium Bicarbonate (Sodium Bicarbonate 650 Mg Tablet) 650 mg PO TID [facility]CLUDE 234 BEDS AT [facility] Last Admin: 02/04/22 09:16 Dose: 650 mg Documented By: PIPER Sodium Chloride (0.9 % Sodium Chloride Flush 3 Ml Syringe) 3 ml IVFLUSH QSHIFT [facility]S [facility]CLUDE 234 BEDS AT [facility] Last Admin: 02/04/22 09:19 Dose: Not Given Documented By: PIPER Non-Admin Reason: IV Running Vitamin D (Cholecalciferol (Vitamin D3) 25 Mcg Tablet) 50 mcg PO DAILY [facility]CLUDE 234 BEDS AT [facility] Last Admin: 02/04/22 09:16 Dose: 50 mcg Documented By: PIPER Labs CBC & Chem 7: 02/03/22 05:15 02/03/22 05:15 Microbiology Microbiology Results: Microbiology 02/01/22 17:26 Blood Culture - Preliminary Blood - Venous No growth after 48 hours. 02/01/22 16:56 Blood Culture - Preliminary Blood - Venous No growth after 48 hours. Assessment and Plan (1) Metabolic acidosis, increased anion gap: Status: Acute (2) Acute on chronic renal failure: Status: Acute (3) UTI (urinary tract infection): Status: Acute Plan 71-year-old female with history of dementia who comes from [facility] with mentioned past medical history as above who presents to the hospital with encephalopathy, weakness, and fatigue found to encephalopathy likely secondary to infection # acute on chronic toxic metabolic encephalopathy Improving Likely secondary to acute infection, advanced dementia treat CHAVEZ and infection Recurrent reorientation # acute UTI E coli in urine culture Continue IV antibiotic # acute on chronic renal failure stage IV with AGMA Creatinine trended down 3.7, Bicarb at 17 Continue sodium bicarb, home dose Continue IV fluid follow BMP Pending Nephrology evaluation # elevated troponin No chest pain, Troponin trended down, no EKG changes suggestive of ACS Monitor for any chest pain to repeat EKG # hypertension Continue metoprolol, Lasix DVT prophylaxis: Heparin subQ Given encephalopathy, UTI and Chavez I patient require overnight inpatient hospital stay for further management and monitoring of kidney function and mentation Quality Stroke Does the patient have a stroke diagnosis?: No VTE Prior VTE?: No VTE Risk Level:: Medical - moderate - high VTE Device Contraindication: Treatment Not Indicated VTE Drug Contraindication: N/A - Med Ordered
[2022-02-04 12:00] VITALS: BP 139/78; PULSE 58; RESP 18; TEMP 36.4; O2SAT 97
--- NOTE | 2022-02-04 13:19 | PC.NURSE ---
Addendum entered by Cele Moy RN 02/04/22 17:48: Noted patient to have cool, mottled, right forearm, +radial pulse, >4 cap refill. MD Mora aware and assessed patient. Will monitor Q2 hours. Original Note: Patient took AM medications crushed, patient does not want to be cared for. Patient re-oriented to environment. Dillard cath draining light yellow urine. Patient repositioned and barrier cream applied to buttocks for protection.
[2022-02-04 15:36] VITALS: BP 168/81
--- NOTE | 2022-02-04 17:14 | P.PNNP_ITS ---
Subjective Subjective Date of Service: 02/04/22 Interval history: no events GFR improving daily still acidotic. Physical Exam Vital Signs: Vital Signs: Last Vital Signs Temp 97.6 F 02/04/22 12:00 Pulse 58 02/04/22 12:00 Resp 18 02/04/22 12:00 BP 168/81 H 02/04/22 15:36 Pulse Ox 97 02/04/22 12:00 O2 Del Method 02/04/22 08:00 BMI result Body Mass Index 22.3 Const: Other: Constitutional : Alert, answering with few questions, looks frail, not in distress Neck : Normal inspection, Supple Cardiovascular : RRR, no JVP, no lower extremity edema Respiratory : fair bilateral air entry, no crackles, wheezes or rhonchi Gastrointestinal: soft, lax, Normal bowel sounds, Non tender Skin : Warm, Dry Neurological : Alert, alert to self only otherwise disoriented, moving all extremities Objective Data Labs CBC & Chem 7: 02/03/22 05:15 02/03/22 05:15 Microbiology Microbiology Results: Microbiology 02/01/22 17:26 Blood - Venous Blood Culture - Preliminary No growth after 48 hours. 02/01/22 16:56 Blood - Venous Blood Culture - Preliminary No growth after 48 hours. 02/01/22 20:22 Urine clean catch - Urine solano top Urine Culture - Final Escherichia coli Procedures Date of Service Date of Service: 02/04/22 Assessment & Plan Assessment and plan (1) Encephalopathy: Status: Acute (2) Acute on chronic renal failure: Status: Acute (3) UTI (urinary tract infection): Status: Acute (4) Metabolic acidosis, increased anion gap: Status: Acute Plan Ms. 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 Labs are significant for sodium of 146, BUN of 97, and creatinine of 5.87. UA positive for leukocyte Estrace, as well as WBC. This is all in the setting of ur osepsis. # CHAVEZ on advanced CKD stage IV BL Cr 2.0mg/dL in the setting of lithium nephrotoxicity and diabetic nephropathy, follows Dr Oviedo CHAVEZ with Cr 5.5mg/dL in the setting of poor PO intake, hypovolemia, urosepsis with ecoli. U/A with hyaline casts. # Non-gap metabolic acidosis. known RTA with Nabicarb supplements chronically. # HTN chronically on clonidine Plan: - hold PO lasix - stop daily lokelma - c/w clonidine 0.1mg Patch - increase NaBicarb to 1300mg BID - LR at 100cc/hr - monitor I/Os - renal panel daily - no indication for REAL TIME OPERATOR Time Spent With Patient Time: Total time spent is greater than 50% in coordination of care (as documented) at patient's floor/unit and/or counseling patient: Progress Note: Quality Stroke Does the patient have a stroke diagnosis?: No
--- NOTE | 2022-02-04 17:31 | PM.EVENT ---
Event Note Date of Service: 02/04/22 Event Note: nursing staff was called for question of patient arms are cold, patient seen and examine- bilateral upper extremities- seems warm and dry to touch, pulses are present( checked by both me and staff), nail beds are pink, patient is moving both upper extremities. she was not having her blanket for some time on upper body- advised the staff to put the blanket. Rest of the physical exam - see progress note section. Plan: Please check patient's skin Q2 h, monitor clinically and vitals. if any new changes we will re-evaluate patient at that time. Above was discussed with the staff in detail length.
[2022-02-04 17:36] LABS: Anion Gap 18 (12-20); Blood Urea Nitrogen 46 mg/dL (9-16); Calcium 8.5 mg/dL (8.4-10.2); Carbon Dioxide 22 mmol/L (22-29); Chloride 111 mmol/L (96-108); Creatinine Clr Calc Pharmacy 16.6; Estimated Glomerular Filt Rate 18; Glucose Random 94 mg/dL (60-115); Potassium 4.1 mmol/L (3.3-5.1); Sodium 147 mmol/L (135-145)
[2022-02-04 17:43] LABS: Hematocrit 37.5 % (37.0-47.0); Hemoglobin 12.2 g/dl (12.0-16.0); Mean Corpuscular HGB Conc 32.5 g/dl (31.0-35.0); Mean Corpuscular Hemoglobin 28.7 pg (27.0-33.0); Mean Corpuscular Volume 88.2 fL (80.0-98.0); Mean Platelet Volume 12.4 fL (9.4-12.3); Platelet Count 177 X10*3/uL (160-400); Red Blood Count 4.25 X10*6/uL (4.20-5.50); Red Cell Distribution Width 15.2 % (11.0-16.0); White Blood Count 4.5 X10*3/uL (4.8-10.8)
[2022-02-04 19:12] VITALS: BP 130/71; PULSE 56; RESP 18; TEMP 36.6; O2SAT 96
[2022-02-04] MEDS: cefTRIAXone sodium 1 GM in 0.9 % Sodium Chloride 50 ML IV (21:16)
[2022-02-05] VITALS: BP 128/64; PULSE 61; RESP 16; TEMP 36.3; O2SAT 96
[2022-02-05 03:51] VITALS: BP 139/70; PULSE 58; RESP 16; TEMP 36; O2SAT 94
[2022-02-05 07:38] VITALS: BP 132/66; PULSE 65; RESP 14; TEMP 36.4; O2SAT 97
[2022-02-05] MEDS: diazePAM 2 MG TABLET 0.5 MG PO (08:37)
[2022-02-05] MEDS: OXcarbazepine 300 MG TABLET PO (08:37)
[2022-02-05] MEDS: Cholecalciferol (Vitamin D3) 25 MCG TABLET 50 MCG PO (08:37)
[2022-02-05] MEDS: Atorvastatin Calcium 10 MG TABLET PO (08:38)
[2022-02-05] MEDS: Metoprolol Tartrate 12.5 MG HALFTAB PO (08:38)
[2022-02-05] MEDS: Sodium Bicarbonate 650 MG TABLET 1300 MG PO (08:38)
[2022-02-05] MEDS: polyethylene glycoL 3350 17 GM POWD.PACK PO (08:38)
[2022-02-05] MEDS: Perphenazine 4 MG TABLET PO (08:38)
[2022-02-05] MEDS: 0.9 % Sodium Chloride Flush 3 ML SYRINGE IVFLUSH (08:38)
[2022-02-05] MEDS: Perphenazine 2 MG TABLET PO (08:38)
[2022-02-05 08:45] LABS: Blood Urea Nitrogen 37 mg/dL (9-16); Creatinine Clr Calc Pharmacy 17.9; Estimated Glomerular Filt Rate 20; Glucose Random 82 mg/dL (60-115)
[2022-02-05] MEDS: Lactated Ringers 1,000 ML 100 ML IVCONT (08:48)
[2022-02-05 09:04] LABS: Anion Gap 17 (12-20); Carbon Dioxide 23 mmol/L (22-29); Chloride 115 mmol/L (96-108); Potassium 4.3 mmol/L (3.3-5.1); Sodium 151 mmol/L (135-145)
--- NOTE | 2022-02-05 11:03 | P.PNIM_ITS ---
Subjective Subjective Date of Service: 02/05/22 Interval History: the patient was seen and evaluated this morning Laying in bed, more anxious and agitated Sodium level increasing to 151 No reported other overnight events Systemic review: No fever, chills but reports feeling weakness and thirsty No chest pain, palpitation No shortness of breath or coughing No abdominal pain, nausea or vomiting No urinary symptoms No reported rash Physical Exam Vital Signs: Vital Signs: Last Vital Signs Temp 97.6 F 02/05/22 07:38 Pulse 65 02/05/22 07:38 Resp 14 02/05/22 07:38 BP 132/66 02/05/22 07:38 Pulse Ox 97 02/05/22 07:38 O2 Del Method 02/05/22 07:38 BMI result Body Mass Index 22.3 Const: Other: Constitutional : Alert, answering with few words, looks frail, not in distress Neck : Normal inspection, Supple Cardiovascular : RRR, no JVP, no lower extremity edema Respiratory : fair bilateral air entry, no crackles, wheezes or rhonchi Gastrointestinal: soft, lax, Normal bowel sounds, Non tender Skin : Warm, Dry Neurological : Alert, alert to self only otherwise disoriented, moving all extremities Objective Data Active Medications Acetaminophen (Acetaminophen 325 Mg Tablet) 650 mg PO Q6H PRN PRN Reason: Pain, Mild (Pain Scale 1-3) Atorvastatin Calcium (Atorvastatin Calcium 10 Mg Tablet) 10 mg PO DAILY [facility] Last Admin: 02/05/22 08:38 Dose: 10 mg Documented By: PIPER Clonidine (Clonidine 0.1 Mg Patch.Tdwk) 0.1 mg TRANSDERMA Q7D [facility]; Protocol Last Admin: 02/02/22 13:35 Dose: 0.1 mg Documented By: PATSY Diazepam (Diazepam 2 Mg Tablet) 0.5 mg PO BID [facility] Last Admin: 02/05/22 08:37 Dose: 0.5 mg Documented By: PIPER Docusate Sodium (Docusate Sodium 100 Mg Capsule) 100 mg PO DAILY PRN PRN Reason: Constipation Heparin Sodium (Porcine) (Heparin Sodium,Porcine 5,000 Unit/Ml Vial) 5,000 unit SUBCUT Q12H [facility] Last Admin: 02/04/22 21:32 Dose: Not Given Documented By: ELIN Non-Admin Reason: Patient Refused Ceftriaxone Sodium 1 gm/ (Sodium Chloride) 50 mls @ 100 mls/hr IV Q24H [facility] Last Infusion: 02/04/22 21:54 Dose: 0 mls/hr Documented By: ELIN Metoprolol Tartrate (Metoprolol Tartrate 12.5 Mg Halftab) 12.5 mg PO BID [facility]; Protocol Last Admin: 02/05/22 08:38 Dose: 12.5 mg Documented By: PIPER Mirtazapine (Mirtazapine 30 Mg Tablet) 30 mg PO BEDTIME [facility] Last Admin: 02/04/22 21:32 Dose: Not Given Documented By: ELIN Non-Admin Reason: Patient Refused Nystatin (Nystatin Powder 15 Gm Bottle) 1 appl TOPICAL BID [facility]; Protocol Last Admin: 02/05/22 08:48 Dose: Not Given Documented By: PIPER Non-Admin Reason: Patient Refused Ondansetron HCl (Ondansetron Hcl 4 Mg/2 Ml Vial) 4 mg IVPUSH Q8H PRN PRN Reason: Nausea and Vomiting Oxcarbazepine (Oxcarbazepine 300 Mg Tablet) 300 mg PO BID [facility] Last Admin: 02/05/22 08:37 Dose: 300 mg Documented By: PIPER Perphenazine (Perphenazine 2 Mg Tablet) 2 mg PO BID [facility] Last Admin: 02/05/22 08:38 Dose: 2 mg Documented By: PIPER Perphenazine (Perphenazine 4 Mg Tablet) 4 mg PO BID [facility] Last Admin: 02/05/22 08:38 Dose: 4 mg Documented By: PIPER Polyethylene Glycol (Polyethylene Glycol 3350 17 Gm Powd.Pack) 17 gm PO DAILY [facility] Last Admin: 02/05/22 08:38 Dose: 17 gm Documented By: PIPER Senna (Sennosides 8.6 Mg Tablet) 8.6 mg PO DAILY PRN PRN Reason: Constipation Sodium Bicarbonate (Sodium Bicarbonate 650 Mg Tablet) 1,300 mg PO BID [facility] Last Admin: 02/05/22 08:38 Dose: 1,300 mg Documented By: PIPER Sodium Chloride (0.9 % Sodium Chloride Flush 3 Ml Syringe) 3 ml IVFLUSH QSHIFT [facility] Last Admin: 02/05/22 08:38 Dose: 3 ml Documented By: PIPER Vitamin D (Cholecalciferol (Vitamin D3) 25 Mcg Tablet) 50 mcg PO DAILY [facility] Last Admin: 02/05/22 08:37 Dose: 50 mcg Documented By: PIPER Labs CBC & Chem 7: 02/04/22 17:17 02/05/22 08:13 Labs: Laboratory Results - last 24 hr 02/04/22 02/04/22 02/05/22 17:17 17:17 08:13 MCV 88.2 MCH 28.7 MCHC 32.5 RDW 15.2 Plt Count 177 MPV 12.4 H Absolute Nucleated RBC 0.000 Nucleated RBC % (auto) 0.0 Anion Gap 18 17 Estim Creat Clear Calc 16.6 17.9 Estimated GFR 18 20 Random Glucose 94 82 Calcium 8.5 9.0 Assessment and Plan (1) Hypernatremia: Status: Acute (2) Dehydration: Status: Acute (3) Encephalopathy: Status: Acute (4) Acute on chronic renal failure: Status: Acute Plan 71-year-old female with history of dementia who comes from [facility] with mentioned past medical history as above who presents to the hospital with encephalopathy, weakness, and fatigue found to encephalopathy likely secondary to infection # hypernatremia Sodium of 151 Secondary to dehydration, IV fluids Change IVF to D5W Monitor BMP # acute on chronic toxic metabolic encephalopathy Fluctuating Likely secondary to acute infection, advanced dementia and hypernatremia treat CHAVEZ , correct sodium and infection Recurrent reorientation # acute UTI E coli in urine culture Continue IV antibiotic # acute on chronic renal failure stage IV with AGMA Creatinine trended down 2.4, Bicarb at 23 Continue sodium bicarb, home dose Continue IV fluid follow BMP Appreciated Nephrology evaluation # elevated troponin No chest pain, Troponin trended down, no EKG changes suggestive of ACS Monitor for any chest pain to repeat EKG # hypertension Continue metoprolol, Lasix DVT prophylaxis: Heparin subQ Given encephalopathy, UTI and Chavez I patient require overnight inpatient hospital stay for further management and monitoring of kidney function and mentation Quality Stroke Does the patient have a stroke diagnosis?: No VTE Prior VTE?: No VTE Risk Level:: Medical - moderate - high VTE Device Contraindication: Treatment Not Indicated VTE Drug Contraindication: N/A - Med Ordered
[2022-02-05 11:08] VITALS: BP 142/74; PULSE 78; RESP 19; TEMP 36.6; O2SAT 96
[2022-02-05] MEDS: Dextrose 5 % 1,000 ML 100 ML IVCONT ×2 (11:11→20:57)
[2022-02-05] MEDS: Heparin Sodium,Porcine 5,000 UNIT/ML VIAL 5000 UNIT SUBCUT (11:17)
--- NOTE | 2022-02-05 15:34 | PM.PNNEP ---
Subjective Subjective Date of Service: 02/05/22 Interval history: Cr better but now hypernatremic Physical Exam Vital Signs: Vital Signs: Last Vital Signs Temp 98 F 02/05/22 11:08 Pulse 78 02/05/22 11:08 Resp 19 02/05/22 11:08 BP 142/74 H 02/05/22 11:08 Pulse Ox 96 02/05/22 11:08 O2 Del Method 02/05/22 11:08 BMI result Body Mass Index 22.3 Const: Other: Constitutional : Alert, answering with few questions, looks frail, not in distress Neck : Normal inspection, Supple Cardiovascular : RRR, no JVP, no lower extremity edema Respiratory : fair bilateral air entry, no crackles, wheezes or rhonchi Gastrointestinal: soft, lax, Normal bowel sounds, Non tender Skin : Warm, Dry Neurological : Alert, alert to self only otherwise disoriented, moving all extremities Objective Data Labs CBC & Chem 7: 02/04/22 17:17 02/05/22 08:13 Labs: Laboratory Results - last 24 hr 02/04/22 02/04/22 02/05/22 17:17 17:17 08:13 WBC 4.5 L RBC 4.25 Hgb 12.2 Hct 37.5 MCV 88.2 MCH 28.7 MCHC 32.5 RDW 15.2 Plt Count 177 MPV 12.4 H Absolute Nucleated RBC 0.000 Nucleated RBC % (auto) 0.0 Sodium 147 H 151 H Potassium 4.1 4.3 Chloride 111 H 115 H Carbon Dioxide 22 23 Anion Gap 18 17 BUN 46 H 37 H Creatinine 2.61 H 2.42 H Estim Creat Clear Calc 16.6 17.9 Estimated GFR 18 20 Random Glucose 94 82 Calcium 8.5 9.0 Microbiology Microbiology Results: Microbiology 02/01/22 17:26 Blood - Venous Blood Culture - Preliminary No growth after 48 hours. 02/01/22 16:56 Blood - Venous Blood Culture - Preliminary No growth after 48 hours. 02/01/22 20:22 Urine clean catch - Urine solano top Urine Culture - Final Escherichia coli Procedures Date of Service Date of Service: 02/05/22 Assessment & Plan Assessment and plan (1) Encephalopathy: Status: Acute (2) Acute on chronic renal failure: Status: Acute (3) UTI (urinary tract infection): Status: Acute (4) Metabolic acidosis, increased anion gap: Status: Acute Plan Ms. 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 Labs are significant for sodium of 146, BUN of 97, and creatinine of 5.87. UA positive for leukocyte Estrace, as well as WBC. This is all in the setting of urosepsis. # CHAVEZ on advanced CKD stage IV BL Cr 2.0mg/dL in the setting of lithium nephrotoxicity and diabetic nephropathy, follows Dr Oviedo CHAVEZ with Cr 5.5mg/dL in the setting of poor PO intake, hypovolemia, urosepsis with ecoli. U/A with hyaline casts. s/p IVF isotonic, with improving CR. # Non-gap metabolic acidosis. known RTA with Nabicarb supplements chronically. # HTN chronically on clonidine # HYPERnatremia free water deficit Plan: - stop LR - start D5/W at 100cc/hr - c/w clonidine 0.1mg Patch - c/w NaBicarb to 1300mg BID - monitor I/Os - renal panel daily - no indication for [employer] Time Spent With Patient Time: Total time spent is greater than 50% in coordination of care (as documented) at patient's floor/unit and/or counseling patient: Progress Note: Quality Stroke Does the patient have a stroke diagnosis?: No
--- NOTE | 2022-02-05 16:41 | PC.NURSE ---
Patient repositioned throughout shift. Patient took all morning meds in apple sauce crushed with coaching. Patient requesting to go home. Reassured and comfort measures given.
[2022-02-05 17:28] LABS: Anion Gap 16 (12-20); Blood Urea Nitrogen 39 mg/dL (9-16); Calcium 8.5 mg/dL (8.4-10.2); Carbon Dioxide 22 mmol/L (22-29); Chloride 112 mmol/L (96-108); Creatinine Clr Calc Pharmacy 19.1; Estimated Glomerular Filt Rate 21; Glucose Random 139 mg/dL (60-115); Sodium 146 mmol/L (135-145)
[2022-02-05] MEDS: cefTRIAXone sodium 1 GM in 0.9 % Sodium Chloride 50 ML IV (22:50)
[2022-02-05 23:59] VITALS: BP 128/58; PULSE 75; RESP 16; TEMP 36.7; O2SAT 94
[2022-02-06 04:00] VITALS: BP 136/68; PULSE 67; RESP 16; TEMP 36.2; O2SAT 96
[2022-02-06 07:50] VITALS: BP 157/76; PULSE 69; RESP 18; TEMP 36.3; O2SAT 98
[2022-02-06] MEDS: Atorvastatin Calcium 10 MG TABLET PO (09:25)
[2022-02-06] MEDS: OXcarbazepine 300 MG TABLET PO (09:25)
[2022-02-06] MEDS: Sodium Bicarbonate 650 MG TABLET 1300 MG PO (09:25)
[2022-02-06] MEDS: Perphenazine 2 MG TABLET PO (09:25)
[2022-02-06] MEDS: Perphenazine 4 MG TABLET PO (09:25)
[2022-02-06] MEDS: Cholecalciferol (Vitamin D3) 25 MCG TABLET 50 MCG PO (09:25)
[2022-02-06] MEDS: Heparin Sodium,Porcine 5,000 UNIT/ML VIAL 5000 UNIT SUBCUT (09:26)
[2022-02-06] MEDS: Metoprolol Tartrate 12.5 MG HALFTAB PO (09:26)
[2022-02-06] MEDS: 0.9 % Sodium Chloride Flush 3 ML SYRINGE IVFLUSH (09:27)
[2022-02-06] MEDS: diazePAM 2 MG TABLET 0.5 MG PO (09:29)
[2022-02-06] MEDS: Dextrose 5 % 1,000 ML 100 ML IVCONT (09:48)
[2022-02-06 10:14] LABS: Anion Gap 17 (12-20); Blood Urea Nitrogen 30 mg/dL (9-16); Calcium 8.8 mg/dL (8.4-10.2); Carbon Dioxide 22 mmol/L (22-29); Chloride 109 mmol/L (96-108); Estimated Glomerular Filt Rate 21; Glucose Random 145 mg/dL (60-115); Potassium 4.6 mmol/L (3.3-5.1); Sodium 143 mmol/L (135-145)
[2022-02-06 11:30] VITALS: BP 154/76; PULSE 54; RESP 18; TEMP 36.4; O2SAT 98
--- NOTE | 2022-02-06 11:30 | P.DS_ITS ---
DS: Providers Provider Date of Service: 02/06/22 Date of admission: 02/01/22 22:53 Primary care physician: Jeancarlos Wang DO Consults: 02/02/22 12:58 Consult to Nephrology Routine Consulting Provider: Lazaro Oviedo Reason for consultation: Jose R I on CKD for your kind eval DS: Diagnosis Discharge Diagnosis (1) Encephalopathy: Status: Acute (2) Acute on chronic renal failure: Status: Acute (3) UTI (urinary tract infection): Status: Acute (4) Metabolic acidosis, increased anion gap: Status: Acute (5) Hypernatremia: Status: Acute (6) Dehydration: Status: Acute (7) Elevated troponin: Status: Acute DS: Summary Hospital Course Hospital Course: Admission note HPI This is a 71-year-old female with past medical history of CKD, COPD, diabetes, dysphagia, essential hypertension, GERD, history of subarachnoid hemorrhage, VTE. Patient has baseline dementia therefore unable to give much history, history is obtained mostly from EMR and ED physician.? Patient was brought in from [facility] for increased weakness and fatigue as well as altered mental status.? On questioning patient on her review of system, she has not given me much history although she is awake and has her eyes open and tracks and states that she is able to hear my questions. On arrival to the ED patient was found to have no acute significant abnormal vitals Labs are significant for sodium of 146, BUN of 97, and creatinine of 5.87 with a baseline of around 2.34, troponin of 210 that decreased to 160, BNP of 269, UA positive for leukocyte Estrace, as well as WBC Abdomen pelvic CT shows no significant cause of the patient's abdominal pain and chest pain thyromegaly, old uterine fibroid, 3 mm left upper lobe nodule, thick- walled bladder, moderate stool burden an appendicolith with no evidence appendicitis.? And 1.4 cm sclerotic lesion of left hank sacrum Patient started on IV antibiotics and fluids and will be admitted for further management. Hospital course The patient was admitted for evaluation of altered mentation. Found to have an evidence of acute kidney injury on CKD stage 4 with associated urine infection. Treated with IV fluids as creatinine trended downFrom 5.8 to around 2.2 which is her baseline. Evaluated by Nephrology team during the hospital stay. Noted to developed hypernatremia which was treated with D5W with good response. Sodium bicarbonate increased to 1300 b.i.d. with good response for evidence of anion gap metabolic acidosis. The patient mental status improved as she received ceftriaxone for urine infection as urine culture grew E coli. She was noted to have more retention upon bladder scan. Dillard catheter placed with good response as it helps with her mentation improving. [facility] be [facility] the [facility] with plan for voiding trial as an removing it. To do voiding trials and remove the Dillard at the facility Continue Ceftin as prescribed Increase fluid intake Increase sodium bicarb to 1300 mg b.i.d. Follow-up with Nephrology as outpatient Time Spent with Patient Time attestation: Total time spent providing and/or coordinating discharge services: Discharge coordination time: Greater than 30 minutes Quality: Safe Use of Opioids Does Pt have an Active Cancer Diagnosis on the Problem List?: No Quality: Stroke Does the patient have a stroke diagnosis?: No Physical Exam Vital Signs: Vital Signs: Last Vital Signs Temp 97.4 F 02/06/22 07:50 Pulse 69 02/06/22 07:50 Resp 18 02/06/22 07:50 BP 157/76 H 02/06/22 07:50 Pulse Ox 98 02/06/22 07:50 O2 Del Method 02/06/22 07:50 BMI result Body Mass Index 22.3 Const: Other: Constitutional : Alert, answering with few words, looks frail, not in distress Neck : Normal inspection, Supple Cardiovascular : RRR, no JVP, no lower extremity edema Respiratory : fair bilateral air entry, no crackles, wheezes or rhonchi Gastrointestinal: soft, lax, Normal bowel sounds, Non tender Skin : Warm, Dry Urology: Dillard catheter in place Neurological : Alert, alert to self only otherwise disoriented, moving all extremities DS: Data Data Completed and Pending Labs on day of discharge: Laboratory Results - last 24 hr 02/05/22 02/06/22 17:05 09:46 Sodium 146 H 143 Potassium 4.0 4.6 Chloride 112 H 109 H Carbon Dioxide 22 22 Anion Gap 16 17 BUN 39 H 30 H Creatinine 2.26 H 2.28 H Estim Creat Clear Calc 19.1 19.0 Estimated GFR 21 21 Random Glucose 139 H 145 H Calcium 8.5 8.8 Preliminary micro results at discharge 02/01/22 17:26 Blood Culture - Preliminary Blood - Venous No growth after 48 hours. 11/02/22 16:56 Blood Culture - Preliminary Blood - Venous No growth after [address] scan - head: Radiologist's impression: ITS Impressions Abdomen/Pelvis CT 02/01/22 21:05 IMPRESSION: 1. A cause for the patient's abdominal pain and chest pain has not been found. 2. Incidental note made of thyromegaly, old uterine fibroids, degenerative changes in the spine and a small defect in the sternum. 3. Incidental note made of a 3 mm left upper lobe nodule, a Dillard catheter in the thick-walled bladder, moderate stool burden and appendicolith. No evidence of appendicitis. 4. 1.4 cm sclerotic lesion left hemisacrum. Fleischner guidelines were followed. Chest CT 02/01/22 21:05 IMPRESSION: 1. A cause for the patient's abdominal pain and chest pain has not been found. 2. Incidental note made of thyromegaly, old uterine fibroids, degenerative changes in the spine and a small defect in the sternum. 3. Incidental note made of a 3 mm left upper lobe nodule, a Dillard catheter in the thick-walled bladder, moderate stool burden and appendicolith. No evidence of appendicitis. 4. 1.4 cm sclerotic lesion left hemisacrum. Fleischner guidelines were followed. Discharge Plan Discharge Patient Disposition: Xfer [facility] Discharge Diagnosis: Acute kidney injury, hypernatremia Urinary tract infection Metabolic encephalopathy Referrals: Jeancarlos Wang DO [Primary Care Provider] - 1 Week Discharge Medications: New cefuroxime axetil 250 mg Tablet 250 mg PO BID Qty: 5 0RF Continued diazepam 2 mg Tablet 1 mg PO BID haloperidol decanoate [Haldol Decanoate] 50 mg/mL Solution 30 mg IM Q14D furosemide 20 mg Tablet 20 mg PO DAILY sennosides [senna] 8.6 mg Tablet 8.6 mg PO DAILY PRN (Reason: Constipation) perphenazine 2 mg Tablet 2 mg PO BID pantoprazole 40 mg Tablet,Delayed Release (Dr/Ec) 40 mg PO DAILY polymyxin B sulf-trimethoprim [Polytrim] 10,000 unit- 1 mg/mL Drops 1 drp OPHTHALMIC (EYE) QID Rx Instructions: while awake; do not exceed 6 doses in 24 hours perphenazine 4 mg Tablet 4 mg PO BID nystatin 100,000 unit/gram Powder 1 appl TOPICAL BID oxcarbazepine 300 mg/5 mL (60 mg/mL) Suspension 300 mg PO BID Lokelma 10 gram Powder In Packet 20 g PO DAILY simvastatin [Zocor] 20 mg Tablet 40 mg PO DAILY cholecalciferol (vitamin D3) 50 mcg (2,000 unit) capsule 50 mcg PO DAILY clonidine 0.1 mg/24 hr patch weekly 1 patch transdermal NYE desipramine 50 mg tablet 50 mg PO BEDTIME glucagon 1 mg/0.2 mL auto-injector 1 mg subcut Q15M PRN (Reason: HYPOGLYCEMIC EVENT) melatonin 5 mg capsule 5 mg PO BEDTIME metoprolol tartrate 25 mg tablet 12.5 mg PO BID mirtazapine 30 mg tablet 30 mg PO BEDTIME Changed sodium bicarbonate 650 mg Tablet 1,300 mg PO BID Qty: 120 0RF Discharge Orders: Discharge Order (Routine); Ordered 02/06/22 Ordered By: Khang Baird Diet: Advance to usual diet Activity on Discharge: As tolerated Stand Alone Forms: Patient Portal Discharge page Care Plan Goals: Read below Health Concerns: Read below Plan of Treatment: Read below Assessment: You were admitted for evaluation of altered mentation. Found to have acute kidney injury and urine infection treated with IV fluid and antibiotics with good response as you were followed by nephrology team during the hospital stay. Continue Ceftin as prescribed Increase fluid intake Increase sodium bicarb to 1300 mg b.i.d. Follow-up with Nephrology as outpatient
--- NOTE | 2022-02-06 11:33 | PM.PNNEP ---
Subjective Subjective Date of Service: 02/06/22 Interval history: Events noted. All recent data reviewed Physical Exam Vital Signs: Vital Signs: Last Vital Signs Temp 97.4 F 02/06/22 07:50 Pulse 69 02/06/22 07:50 Resp 18 02/06/22 07:50 BP 157/76 H 02/06/22 07:50 Pulse Ox 98 02/06/22 07:50 O2 Del Method 02/06/22 07:50 BMI result Body Mass Index 22.3 Const: General: no acute distress Neck: Neck: Yes supple Resp: Auscultation: diminished lung sounds Cardio: Rate: regular rate GI: Palpation (GI): Soft to palpation Neuro: General: moves all extremities Objective Data Labs CBC & Chem 7: 02/04/22 17:17 02/06/22 09:46 Labs: Laboratory Results - last 24 hr 02/05/22 02/06/22 17:05 09:46 Sodium 146 H 143 Potassium 4.0 4.6 Chloride 112 H 109 H Carbon Dioxide 22 22 Anion Gap 16 17 BUN 39 H 30 H Creatinine 2.26 H 2.28 H Estim Creat Clear Calc 19.1 19.0 Estimated GFR 21 21 Random Glucose 139 H 145 H Calcium 8.5 8.8 Microbiology Microbiology Results: Microbiology 02/01/22 17:26 Blood - Venous Blood Culture - Preliminary No growth after 48 hours. 02/01/22 16:56 Blood - Venous Blood Culture - Preliminary No growth after 48 hours. 02/01/22 20:22 Urine clean catch - Urine solano top Urine Culture - Final Escherichia coli Procedures Date of Service Date of Service: 02/06/22 Assessment & Plan Assessment and plan (1) Acute on chronic renal failure: Status: Acute Assessment and Plan: Ms. 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 Labs are significant for sodium of 146, BUN of 97, and creatinine of 5.87. UA positive for leukocyte Estrace, as well as WBC. This is all in the setting of urosepsis. # CHAVEZ on advanced CKD stage IV BL Cr 2.0mg/dL in the setting of lithium nephrotoxicity and diabetic nephropathy, follows Dr Preet BYRNE with Cr 5.5mg/dL in the setting of poor PO intake, hypovolemia, urosepsis with ecoli. U/A with hyaline casts. Renal function better. C/W current supportive care. Shall arrange F/U with D/C Oviedo if D/Alexandre Time Spent With Patient Time: Total time spent is greater than 50% in coordination of care (as documented) at patient's floor/unit and/or counseling patient: Progress Note: Quality Stroke Does the patient have a stroke diagnosis?: No
--- NOTE | 2022-02-06 15:10 | MHC.CM.PN ---
UMESH TO PROVIDE A 5 PM TRANSFER BACK TO [facility] RN AND UNIT AWARE OF PLAN. IMM 02/05 IN CHART
[2022-02-06 15:26] LABS: COVID-19 Test Invalid (Negative)
[2022-02-06 16:03] LABS: COVID-19 Test Negative (Negative)
[2022-02-06 16:35] VITALS: BP 147/72; PULSE 64; RESP 16; TEMP 36.2; O2SAT 97
== END 2022-02-06 18:46 | DRG 682 ==
LOC: HO.ED 20:41 → HO.EDOVER 23:05 → HO.S3 02-02 15:19
PROVIDERS: Hospitalist; Admitting Provider Internal Medicine; Emergency Provider Student in an Organized Health Care Education/Training Program; PCP Hospitalist; Visit Provider Student in an Organized Health Care Education/Training Program
DX: N17.9 Acute kidney failure, unspecified (principal); G92.8 Other toxic encephalopathy; I13.0 Hypertensive heart and chronic kidney disease with heart failure and stage 1 through stage 4 chronic kidney disease, or unspecified chronic kidney disease; N39.0 Urinary tract infection, site not specified; E87.20 Acidosis, unspecified; N18.4 Chronic kidney disease, stage 4 (severe); F03.90 Unspecified dementia, unspecified severity, without behavioral disturbance, psychotic disturbance, mood disturbance, and anxiety; B96.20 Unspecified Escherichia coli [E. coli] as the cause of diseases classified elsewhere; I50.9 Heart failure, unspecified; E86.0 Dehydration; E11.22 Type 2 diabetes mellitus with diabetic chronic kidney disease; Z20.822 Contact with and (suspected) exposure to COVID-19; Z88.5 Allergy status to narcotic agent; Z88.8 Allergy status to other drugs, medicaments and biological substances; Z79.899 Other long term (current) drug therapy
CPT/HCPCS: 0241U; 36415; 71250; 74176; 80048; 80053; 81001; 82947; 83605; 83880; 84484; 85025; 85027; 85610; 87040; 87086; 87088; 87186; 87635; 93005; 99285; C1758; J0696; J1940

== ENCOUNTER 2022-04-04 07:37 | Inpatient (IN) | payer MEDICARE, MEDICAID, SELFPAY ==
--- NOTE | ~2022-04-04 | XR_ITS ---
EXAMINATION: XR CHEST CLINICAL INFORMATION: Altered mental status, fever. COMPARISON: CXR from 01/25/[address] from 02/01/2022. TECHNIQUE: Frontal view of the chest was obtained. FINDINGS: Lungs are well-inflated and clear. No consolidation or pleural effusion. Cardiac silhouette is normal in size. The pulmonary vascular pattern is normal. Multilevel osteophyte formation of the degenerated thoracic spine. Mild osteoarthritis of the left glenohumeral joint. XR/XR chest 1V IMPRESSION: No evidence of pneumonia. No acute cardiopulmonary findings.
--- NOTE | 2022-04-04 07:45 | ECG_ITS ---
Test Reason : AMS Blood Pressure : / mmHG Vent. 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
--- NOTE | 2022-04-04 07:54 | ED_ITS ---
HPI - Fever General Chief Complaint: Fever Stated Complaint: FEVER Source: EMS and old records reviewed Mode of arrival: EMS Limitations: altered mental status History of Present Illness HPI Narrative: 71 yo female CKD, COPD, DM, dysphagia, HTN, GERD, SAH, VTE - here with AMS and fevers this AM - unsure of time of AMS. Was seen in January for same thing and dx with CHAVEZ on CKD with montes sensitive E. Coli. Patient cannot provide much history. No tylenol was given this AM at facility. EMS notes that the patient wa s 91% on RA so they put her on oxygen but the patient is 95% on RA here and was left off oxygen on arrival. MD elicited complaint: fever Pertinent past history: sepsis Onset (ago): day(s) (?this AM) Context: recent hospitalization Exacerbating factors: nothing Relieving factors: nothing Associated symptoms: chills, rigors and nausea Treatments prior to arrival fever: none Related Data Home Medications Medication Instructions Recorded Confirmed cholecalciferol (vitamin D3) 50 50 mcg PO DAILY 02/25/20 04/04/22 mcg (2,000 unit) capsule desipramine 50 mg tablet 50 mg PO BEDTIME 02/25/20 04/04/22 glucagon 1 mg/0.2 mL subcutaneous 1 mg subcut Q15M PRN HYPOGLYCEMIC 02/25/20 04/04/22 auto-injector EVENT metoprolol tartrate 25 mg tablet 12.5 mg PO BID 02/25/20 04/04/22 mirtazapine 30 mg tablet 30 mg PO BEDTIME 02/25/20 04/04/22 diazepam 2 mg tablet 1 mg PO BID 02/01/22 04/04/22 furosemide 20 mg tablet 20 mg PO DAILY 02/01/22 04/04/22 haloperidol decanoate 50 mg/mL 30 mg IM Q14D 02/01/22 04/04/22 intramuscular solution (Haldol Decanoate) oxcarbazepine 300 mg/5 mL (60 300 mg PO BID 02/01/22 04/04/22 mg/mL) oral suspension pantoprazole 40 mg tablet,delayed 40 mg PO DAILY@0630 02/01/22 04/04/22 release perphenazine 2 mg tablet 2 mg PO BID 02/01/22 04/04/22 perphenazine 4 mg tablet 4 mg PO BID 02/01/22 04/04/22 sennosides 8.6 mg tablet (senna) 8.6 mg PO DAILY PRN Constipation 02/01/22 04/04/22 sodium zirconium cyclosilicate 10 10 g PO BEDTIME 02/01/22 04/04/22 gram oral powder packet (Lokelma) acetaminophen 325 mg tablet 650 mg PO Q4H PRN Fever Or Pain 04/04/22 04/04/22 apixaban 5 mg tablet 5 mg PO BID 04/04/22 04/04/22 aspirin 81 mg chewable tablet 81 mg PO DAILY 04/04/22 04/04/22 atorvastatin 80 mg tablet 80 mg PO BEDTIME 04/04/22 04/04/22 bisacodyl 10 mg rectal suppository 10 mg FL DAILY PRN Constipation 04/04/22 04/04/22 hydroxyzine HCl 10 mg/5 mL oral 12.5 mg PO Q4H PRN Itching 04/04/22 04/04/22 solution melatonin 3 mg tablet 6 mg PO BEDTIME 04/04/22 04/04/22 sodium bicarbonate 650 mg tablet 650 mg PO DAILY@1400 04/04/22 04/04/22 sodium zirconium cyclosilicate 10 20 g PO DAILY 04/04/22 04/04/22 gram oral powder packet (Lokelma) Previous Rx's Medication Instructions Recorded sodium bicarbonate 650 mg tablet 1,300 mg PO BID #120 tabs 02/06/22 Allergies Allergy/AdvReac Type Severity Reaction Status Date / Time oxycodone [OXYCODONE] Allergy Unknown UNK Verified 01/25/20 18:12 pregabalin [PREGABALIN] Allergy Unknown UNK Verified 01/25/20 18:12 tramadol [TRAMADOL] Allergy Unknown UNK Verified 01/25/20 18:12 Review of Systems Review of Systems: ROS unable to be obtained due to altered mental status [facility] Past Medical History Source: old records reviewed Medical History Accidental poisoning Anemia Anxiety Cataract Catatonic disorder due to known physiological condition CHF (congestive heart failure) CKD (chronic kidney disease) stage 4, GFR 15-29 ml/min COPD (chronic obstructive pulmonary disease) Delirium Diabetes insipidus Diabetes mellitus Disorientated Dysphagia Essential (primary) hypertension GERD (gastroesophageal reflux disease) Hyperkalemia Hyperosmolality Major depressive disorder Manic behavior Metabolic encephalopathy Presbyopia Subarachnoid hemorrhage Venous thromboembolism (VTE) Surgical History History of lumpectomy of left breast (~05/2012) Family History Family History Father No problems noted. Mother No problems noted. Social History Social History Household Members: Unknown / Unable to assess Housing: Unknown / Unable to assess Unable to assess alcohol history related to: Unable to respond Alcohol intake: unknown Patient Tobacco Use Status: Tobacco use Unknown Smoked in Last 30 Days: No Use of substances other than those prescribed or required for medical reasons: Unknown Advance Directives: Yes Advance Directives Information Provided: No Advance Directives on File: No Physical Exam Vital Signs: Vital Signs: Last Vital Signs Temp 97.9 F 04/04/22 13:46 Pulse 81 04/04/22 13:46 Resp 18 04/04/22 13:46 BP 126/75 04/04/22 13:46 Pulse Ox 97 04/04/22 13:46 O2 Del Method 04/04/22 13:46 BMI result Body Mass Index 18.8 Appearance: Alert. Cofused, mild acute distress. Eyes: Pupils equal, round and reactive to light. ENT: Pharynx dry MMM Neck: Normal inspection. Neck supple. CVS: tachycardic heart rate and rhythm. Pulses normal. Respiratory: No respiratory distress. Breath sounds normal. Abdomen: Soft and nontender. does not grimace Skin: Skin warm and cool to the touch in extremities. pale skin color. poor skin turgor. Extremities: No lower extremity edema. No calf ttp Neuro: confused, cannot participate, withdraws from pain. Course Course Course Narrative: troponin elevated in past likely due to demand from fever and tachycardia has CKD as well K 6.5 - Calcium was already ordered, lokelma and albuterol/insulin ordered - will repeat K trop decreasing K improved - planned admit, VS stable. Medications Administered Generic Name Dose Route Start Last Admin Trade Name Freq PRN Reason Stop Dose Admin Sodium Chloride 1,000 mls @ 100 mls/hr 04/04/22 13:00 04/04/22 13:08 Ns IVCONT 100 mls/hr .Q10H IRAIDA Administration Discontinued Medications Generic Name Dose Route Start Last Admin Trade Name Emily PRN Reason Stop Dose Admin Acetaminophen 650 mg 04/04/22 07:46 04/04/22 08:00 Acetaminophen Supp 650 Mg Supp.Rect FL 04/04/22 07:47 650 mg ONCE ONE Administration Albuterol Sulfate 2.5 mg 04/04/22 10:08 04/04/22 10:27 Albuterol Sulfate (0.083%) 2.5 Mg/3 Ml Vial.Neb INHALE 04/04/22 10:09 2.5 mg ONCE ONE Administration Dextrose 25 gm 04/04/22 10:08 04/04/22 10:28 Dextrose 50 % 25 Gm/50 Ml Syringe IVPUSH 04/04/22 10:09 25 gm ONCE ONE Administration Sodium Chloride 1,000 mls @ 999 mls/hr 04/04/22 07:45 04/04/22 13:23 Ns IVCONT 04/04/22 08:45 Infused .Q1H1M IRAIDA Infusion Calcium Gluconate 2 gm in 100 mls @ 50 mls/hr 04/04/22 08:06 04/04/22 13:24 Calcium Gluconate IV 04/04/22 10:05 Infused ONCE ONE Infusion Ceftriaxone Sodium 1 gm/ 50 mls @ 100 mls/hr 04/04/22 08:19 04/04/22 13:24 Sodium Chloride IV 04/04/22 08:48 Infused ONCE ONE Infusion Sodium Chloride 1,000 mls @ 999 mls/hr 04/04/22 08:30 04/04/22 13:27 Ns IV 04/04/22 09:30 Infused .Q1H1M IRAIDA Infusion Insulin Human Regular 5 unit 04/04/22 10:08 04/04/22 10:53 Insulin Regular, Human 100 Unit/Ml 3 Ml Vial IVPUSH 04/04/22 10:09 5 unit ONCE ONE Administration Sodium Zirconium Cyclosilicate 5 gm 04/04/22 10:08 04/04/22 10:28 Sodium Zirconium Cyclosilicate 5 Gm Powd.Pack PO 04/04/22 10:09 5 gm ONCE ONE Administration Medical Decision Making Medical Decision Making MDM Narrative: 71 yo female CKD, COPD, DM, dysphagia, HTN, GERD, SAH, VTE here with fevers and AMS - at this time likely infectious pneumonia, viral vs UTI - will obtain labs, cultures, CXR for aspiration pneumonia, tylenol and empiric ceftriaxone ordered given prior E. Coli UTI pending CXR for aspiration. Planned admit. EKG shows peaked t waves - empiric calcium ordered. I have reviewed and interpreted the patient's labs and reviewed and interpreted radiologist readings of studies done in ED today. Differential Diagnosis Differential Diagnoses: The differential diagnosis associated with the presentation includes UTI, pneumonia, viral syndrome, Admission/Observation Consideration of admission/observation: Escalation of care including admiss ion/observation considered will need admission for fevers, suspect UTI, CHAVEZ on CKD, hyperkalemia Consult Healthcare Provider Management of the patient was discussed with: Hospitalist and [facility] (nephrology) Dr. Roldan - agrees with plan so far, repeat K and will discuss if no improvment in K I will consult her family as well if they would want HD though she is DNR/DNI. Lab Data MDM Lab Attestation statement: I reviewed the patient's lab results. Result Diagrams: 04/04/22 08:12 04/04/22 11:44 Labs: Lab Results 04/04/22 04/04/22 04/04/22 Range/Units 08:12 08:12 08:12 WBC 10.0 (4.8-10.8) X10*3/uL RBC 5.36 D (4.20-5.50) X10*6/uL Hgb 15.1 D (12.0-16.0) g/dl Hct 48.1 H D (37.0-47.0) % MCV 89.7 (80.0-98.0) fL MCH 28.2 (27.0-33.0) pg MCHC 31.4 (31.0-35.0) g/dl RDW 16.2 H (11.0-16.0) % Plt Count 283 D (160-400) X10*3/uL MPV 11.9 (9.4-12.3) fL Immature Gran % (Auto) 0.4 (0.0-0.4) % Neut % (Auto) 76.7 H (45-73) % Lymph % (Auto) 12.2 L (20-40) % [place] % (Auto) 9.7 (2-11) % Eos % (Auto) 0.0 (0-4) % Baso % (Auto) 1.0 (0-2) % Lymph # (Auto) 1.2 (1.2-4.9) X10*3/uL [place] # (Auto) 1.0 (0.1-1.2) X10*3/uL Eos # (Auto) 0.0 (0.0-0.4) X10*3/uL Baso # (Auto) 0.1 (0.0-0.2) X10*3/uL Abs Immat Gran (auto) 0.04 H (0.00-0.03) X10*3/uL Absolute Neuts (auto) 7.6 (2.0-8.3) x10*3/uL Absolute Nucleated RBC 0.000 (0.0-0.012) X10*3/uL Nucleated RBC % (auto) 0.0 (0.0-0.2) /100WBC PT (10.0-13.1) SEC INR (0.9-1.1) VBG pH (7.32-7.43) VBG pCO2 mmHg VBG pO2 mmHg VBG HCO3 (22-26) mmol/L VBG O2 Saturation % VBG Base Excess mmol/L Sodium (135-145) mmol/L Potassium (3.3-5.1) mmol/L Chloride (96-108) mmol/L Carbon Dioxide (22-29) mmol/L Anion Gap (12-20) BUN (9-16) mg/dL Creatinine (0.5-1.4) mg/dL Estim Creat Clear Calc Estimated GFR POC Glucose (60-115) mg/dL Random Glucose (60-115) mg/dL Lactic Acid (0.5-2.0) mmol/L Lactic Acid F/U @ 2Hr (0.5-2.0) mmol/L Calcium (8.4-10.2) mg/dL Magnesium (1.6-2.6) mg/dL Total Bilirubin (0.0-1.0) mg/dL Direct Bilirubin (0.0-0.5) mg/dL AST (5-31) U/L ALT (0-31) U/L Alkaline Phosphatase (39-117) U/L Total Creatine Kinase (26-140) U/L Troponin I High Sens 250.2 H* D (<3.5-17.0) ng/L Total Protein (6.5-8.0) g/dL Albumin (3.5-5.0) g/dL Lipase (8-78) U/L Procalcitonin ng/mL Urine Color Urine Appearance Urine pH (5.0-9.0) Ur Specific Elizabeth (1.005-1.025) Urine Protein (Neg-Trace) mg/dL Urine Glucose (UA) (Negative) mg/dL Urine Ketones (Negative) mg/dL Urine Blood (Negative) Urine Nitrite (Negative) Ur Leukocyte Esterase (Negative) Urine RBC (0-2) /HPF Urine WBC (0-5) /HPF Ur Squamous Epith Cells (0-2) /HPF Urine Bacteria (None Seen) Hyaline Casts (0-2) /LPF Influenza Type A (PCR) NEGATIVE (Negative) Influenza Type B (PCR) NEGATIVE (Negative) RSV RNA Qual (PCR) NEGATIVE (Negative) SARS-CoV-2 RNA (RT-PCR) NEGATIVE (Negative) 04/04/22 04/04/22 04/04/22 Range/Units 08:13 08:13 08:18 WBC (4.8-10.8) X10*3/uL RBC (4.20-5.50) X10*6/uL Hgb (12.0-16.0) g/dl Hct (37.0-47.0) % MCV (80.0-98.0) fL MCH (27.0-33.0) pg MCHC (31.0-35.0) g/dl RDW (11.0-16.0) % Plt Count (160-400) X10*3/uL MPV (9.4-12.3) fL Immature Gran % (Auto) (0.0-0.4) % Neut % (Auto) (45-73) % Lymph % (Auto) (20-40) % [place] % (Auto) (2-11) % Eos % (Auto) (0-4) % Baso % (Auto) (0-2) % Lymph # (Auto) (1.2-4.9) X10*3/uL [place] # (Auto) (0.1-1.2) X10*3/uL Eos # (Auto) (0.0-0.4) X10*3/uL Baso # (Auto) (0.0-0.2) X10*3/uL Abs Immat Gran (auto) (0.00-0.03) X10*3/uL Absolute Neuts (auto) (2.0-8.3) x10*3/uL Absolute Nucleated RBC (0.0-0.012) X10*3/uL Nucleated RBC % (auto) (0.0-0.2) /100WBC PT 15.0 H (10.0-13.1) SEC INR 1.3 H (0.9-1.1) VBG pH 7.29 L (7.32-7.43) VBG pCO2 26 mmHg VBG pO2 46 mmHg VBG HCO3 13 L (22-26) mmol/L VBG O2 Saturation 67.0 % VBG Base Excess -11.6 mmol/L Sodium (135-145) mmol/L Potassium (3.3-5.1) mmol/L Chloride (96-108) mmol/L Carbon Dioxide (22-29) mmol/L Anion Gap (12-20) BUN (9-16) mg/dL Creatinine (0.5-1.4) mg/dL Estim Creat Clear Calc Estimated GFR POC Glucose (60-115) mg/dL Random Glucose (60-115) mg/dL Lactic Acid (0.5-2.0) mmol/L Lactic Acid F/U @ 2Hr (0.5-2.0) mmol/L Calcium (8.4-10.2) mg/dL Magnesium (1.6-2.6) mg/dL Total Bilirubin (0.0-1.0) mg/dL Direct Bilirubin (0.0-0.5) mg/dL AST (5-31) U/L ALT (0-31) U/L Alkaline Phosphatase (39-117) U/L Total Creatine Kinase (26-140) U/L Troponin I High Sens (<3.5-17.0) ng/L Total Protein (6.5-8.0) g/dL Albumin (3.5-5.0) g/dL Lipase (8-78) U/L Procalcitonin 0.65 ng/mL Urine Color Urine Appearance Urine pH (5.0-9.0) Ur Specific [place] (1.005-1.025) Urine Protein (Neg-Trace) mg/dL Urine Glucose (UA) (Negative) mg/dL Urine Ketones (Negative) mg/dL Urine Blood (Negative) Urine Nitrite (Negative) Ur Leukocyte Esterase (Negative) Urine RBC (0-2) /HPF Urine WBC (0-5) /HPF Ur Squamous Epith Cells (0-2) /HPF Urine Bacteria (None Seen) Hyaline Casts (0-2) /LPF Influenza Type A (PCR) (Negative) Influenza Type B (PCR) (Negative) RSV RNA Qual (PCR) (Negative) SARS-CoV-2 RNA (RT-PCR) (Negative) 04/04/22 04/04/22 04/04/22 Range/Units 09:05 09:05 10:26 WBC (4.8-10.8) X10*3/uL RBC (4.20-5.50) X10*6/uL Hgb (12.0-16.0) g/dl Hct (37.0-47.0) % MCV (80.0-98.0) fL MCH (27.0-33.0) pg MCHC (31.0-35.0) g/dl RDW (11.0-16.0) % Plt Count (160-400) X10*3/uL MPV (9.4-12.3) fL Immature Gran % (Auto) (0.0-0.4) % Neut % (Auto) (45-73) % Lymph % (Auto) (20-40) % [place] % (Auto) (2-11) % Eos % (Auto) (0-4) % Baso % (Auto) (0-2) % Lymph # (Auto) (1.2-4.9) X10*3/uL [place] # (Auto) (0.1-1.2) X10*3/uL Eos # (Auto) (0.0-0.4) X10*3/uL Baso # (Auto) (0.0-0.2) X10*3/uL Abs Immat Gran (auto) (0.00-0.03) X10*3/uL Absolute Neuts (auto) (2.0-8.3) x10*3/uL Absolute Nucleated RBC (0.0-0.012) X10*3/uL Nucleated RBC % (auto) (0.0-0.2) /100WBC PT (10.0-13.1) SEC INR (0.9-1.1) VBG pH (7.32-7.43) VBG pCO2 mmHg VBG pO2 mmHg VBG HCO3 (22-26) mmol/L VBG O2 Saturation % VBG Base Excess mmol/L Sodium 150 H (135-145) mmol/L Potassium 6.5 H* D (3.3-5.1) mmol/L Chloride 118 H (96-108) mmol/L Carbon Dioxide 14 L (22-29) mmol/L Anion Gap 25 H (12-20) BUN 89 H (9-16) mg/dL Creatinine 5.20 H* (0.5-1.4) mg/dL Estim Creat Clear Calc 7.6 Estimated GFR 8 POC Glucose (60-115) mg/dL Random Glucose 119 H (60-115) mg/dL Lactic Acid 2.6 H* (0.5-2.0) mmol/L Lactic Acid F/U @ 2Hr (0.5-2.0) mmol/L Calcium 10.0 D (8.4-10.2) mg/dL Magnesium 2.2 (1.6-2.6) mg/dL Total Bilirubin 0.4 (0.0-1.0) mg/dL Direct Bilirubin < 0.2 (0.0-0.5) mg/dL AST 36 H (5-31) U/L ALT 14 (0-31) U/L Alkaline Phosphatase 128 H (39-117) U/L Total Creatine Kinase 272 H (26-140) U/L Troponin I High Sens 164.3 H* (<3.5-17.0) ng/L Total Protein 7.3 (6.5-8.0) g/dL Albumin 3.5 (3.5-5.0) g/dL Lipase 67 (8-78) U/L Procalcitonin ng/mL Urine Color Urine Appearance Urine pH (5.0-9.0) Ur Specific [place] (1.005-1.025) Urine Protein (Neg-Trace) mg/dL Urine Glucose (UA) (Negative) mg/dL Urine Ketones (Negative) mg/dL Urine Blood (Negative) Urine Nitrite (Negative) Ur Leukocyte Esterase (Negative) Urine RBC (0-2) /HPF Urine WBC (0-5) /HPF Ur Squamous Epith Cells (0-2) /HPF Urine Bacteria (None Seen) Hyaline Casts (0-2) /LPF Influenza Type A (PCR) (Negative) Influenza Type B (PCR) (Negative) RSV RNA Qual (PCR) (Negative) SARS-CoV-2 RNA (RT-PCR) (Negative) 04/04/22 04/04/22 04/04/22 Range/Units 11:14 11:44 11:44 WBC (4.8-10.8) X10*3/uL RBC (4.20-5.50) X10*6/uL Hgb (12.0-16.0) g/dl Hct (37.0-47.0) % MCV (80.0-98.0) fL MCH (27.0-33.0) pg MCHC (31.0-35.0) g/dl RDW (11.0-16.0) % Plt Count (160-400) X10*3/uL MPV (9.4-12.3) fL Immature Gran % (Auto) (0.0-0.4) % Neut % (Auto) (45-73) % Lymph % (Auto) (20-40) % [place] % (Auto) (2-11) % Eos % (Auto) (0-4) % Baso % (Auto) (0-2) % Lymph # (Auto) (1.2-4.9) X10*3/uL [place] # (Auto) (0.1-1.2) X10*3/uL Eos # (Auto) (0.0-0.4) X10*3/uL Baso # (Auto) (0.0-0.2) X10*3/uL Abs Immat Gran (auto) (0.00-0.03) X10*3/uL Absolute Neuts (auto) (2.0-8.3) x10*3/uL Absolute Nucleated RBC (0.0-0.012) X10*3/uL Nucleated RBC % (auto) (0.0-0.2) /100WBC PT (10.0-13.1) SEC INR (0.9-1.1) VBG pH (7.32-7.43) VBG pCO2 mmHg VBG pO2 mmHg VBG HCO3 (22-26) mmol/L VBG O2 Saturation % VBG Base Excess mmol/L Sodium 149 H (135-145) mmol/L Potassium 4.3 D (3.3-5.1) mmol/L Chloride 122 H (96-108) mmol/L Carbon Dioxide 13 L (22-29) mmol/L Anion Gap 18 (12-20) BUN 85 H (9-16) mg/dL Creatinine 4.61 H* (0.5-1.4) mg/dL Estim Creat Clear Calc 8.5 Estimated GFR 9 POC Glucose 196 H (60-115) mg/dL Random Glucose 222 H (60-115) mg/dL Lactic Acid (0.5-2.0) mmol/L Lactic Acid F/U @ 2Hr 1.9 (0.5-2.0) mmol/L Calcium 9.2 D (8.4-10.2) mg/dL Magnesium (1.6-2.6) mg/dL Total Bilirubin (0.0-1.0) mg/dL Direct Bilirubin (0.0-0.5) mg/dL AST (5-31) U/L ALT (0-31) U/L Alkaline Phosphatase (39-117) U/L Total Creatine Kinase (26-140) U/L Troponin I High Sens (<3.5-17.0) ng/L Total Protein (6.5-8.0) g/dL Albumin (3.5-5.0) g/dL Lipase (8-78) U/L Procalcitonin ng/mL Urine Color Urine Appearance Urine pH (5.0-9.0) Ur Specific [place] (1.005-1.025) Urine Protein (Neg-Trace) mg/dL Urine Glucose (UA) (Negative) mg/dL Urine Ketones (Negative) mg/dL Urine Blood (Negative) Urine Nitrite (Negative) Ur Leukocyte Esterase (Negative) Urine RBC (0-2) /HPF Urine WBC (0-5) /HPF Ur Squamous Epith Cells (0-2) /HPF Urine Bacteria (None Seen) Hyaline Casts (0-2) /LPF Influenza Type A (PCR) (Negative) Influenza Type B (PCR) (Negative) RSV RNA Qual (PCR) (Negative) SARS-CoV-2 RNA (RT-PCR) (Negative) 04/04/22 Range/Units 12:22 WBC (4.8-10.8) X10*3/uL RBC (4.20-5.50) X10*6/uL Hgb (12.0-16.0) g/dl Hct (37.0-47.0) % MCV (80.0-98.0) fL MCH (27.0-33.0) pg MCHC (31.0-35.0) g/dl RDW (11.0-16.0) % Plt Count (160-400) X10*3/uL MPV (9.4-12.3) fL Immature Gran % (Auto) (0.0-0.4) % Neut % (Auto) (45-73) % Lymph % (Auto) (20-40) % [place] % (Auto) (2-11) % Eos % (Auto) (0-4) % Baso % (Auto) (0-2) % Lymph # (Auto) (1.2-4.9) X10*3/uL [place] # (Auto) (0.1-1.2) X10*3/uL Eos # (Auto) (0.0-0.4) X10*3/uL Baso # (Auto) (0.0-0.2) X10*3/uL Abs Immat Gran (auto) (0.00-0.03) X10*3/uL Absolute Neuts (auto) (2.0-8.3) x10*3/uL Absolute Nucleated RBC (0.0-0.012) X10*3/uL Nucleated RBC % (auto) (0.0-0.2) /100WBC PT (10.0-13.1) SEC INR (0.9-1.1) VBG pH (7.32-7.43) VBG pCO2 mmHg VBG pO2 mmHg VBG HCO3 (22-26) mmol/L VBG O2 Saturation % VBG Base Excess mmol/L Sodium (135-145) mmol/L Potassium (3.3-5.1) mmol/L Chloride (96-108) mmol/L Carbon Dioxide (22-29) mmol/L Anion Gap (12-20) BUN (9-16) mg/dL Creatinine (0.5-1.4) mg/dL Estim Creat Clear Calc Estimated GFR POC Glucose (60-115) mg/dL Random Glucose (60-115) mg/dL Lactic Acid (0.5-2.0) mmol/L Lactic Acid F/U @ 2Hr (0.5-2.0) mmol/L Calcium (8.4-10.2) mg/dL Magnesium (1.6-2.6) mg/dL Total Bilirubin (0.0-1.0) mg/dL Direct Bilirubin (0.0-0.5) mg/dL AST (5-31) U/L ALT (0-31) U/L Alkaline Phosphatase (39-117) U/L Total Creatine Kinase (26-140) U/L Troponin I High Sens (<3.5-17.0) ng/L Total Protein (6.5-8.0) g/dL Albumin (3.5-5.0) g/dL Lipase (8-78) U/L Procalcitonin ng/mL Urine Color Yellow Urine Appearance Clear Urine pH 6.0 (5.0-9.0) Ur Specific Elizabeth 1.010 (1.005-1.025) Urine Protein 100 (2+) H (Neg-Trace) mg/dL Urine Glucose (UA) 250 H (Negative) mg/dL Urine Ketones Negative (Negative) mg/dL Urine Blood Large (3+) H (Negative) Urine Nitrite Negative (Negative) Ur Leukocyte Esterase Moderate (2+) H (Negative) Urine RBC >20 H (0-2) /HPF Urine WBC 11-20 H (0-5) /HPF Ur Squamous Epith Cells 3-5 (0-2) /HPF Urine Bacteria None Seen (None Seen) Hyaline Casts 0-2 (0-2) /LPF Influenza Type A (PCR) (Negative) Influenza Type B (PCR) (Negative) RSV RNA Qual (PCR) (Negative) SARS-CoV-2 RNA (RT-PCR) (Negative) Independent Interpretation I performed an independent interpretation of an: EKG and Plain X-Ray Interpretation: Rate: 100 Rhythm: sinus tachycardia [place]: left Normal P waves. Normal [place]. Normal QRS complex. ST T wave : no ANDERSON but peaked t waves , inverted t waves V1 and V2 qTC: normal prior studies: t waves appear more peaked The study has been interpreted contemporaneously by me. . Independent Historian Clinical information obtained from an independent historian. History obtained from or confirmed by: EMS External Record Review External record reviewed: Inpatient record and Prior outpatient labs Chronic Conditions Patient?s care impacted by: Other (dementia cannot provide history) Critical Care Time Critical Care Time Critical Care Time: Yes Total Critical Care Time: 60 Attestation: I attest to this time spent taking care of the patient Discharge Plan Discharge Clinical Impression: Acute kidney injury superimposed on chronic kidney disease, Fever, Acute hyperkalemia Patient Disposition: Admitted As Inpatient
[2022-04-04] MEDS: Acetaminophen Supp 650 MG SUPP.RECT PR (08:00)
[2022-04-04 08:11] VITALS: BP 109/78; BP 130/89; PULSE 116; RESP 18; TEMP 38.8; O2SAT 94; BMI 18.8
[2022-04-04 08:22] LABS: MANUAL DIFF FLAG NO
[2022-04-04 08:23] LABS: VBG Base Excess -11.6 mmol/L; VBG HCO3 13 mmol/L (22-26); VBG pCO2 26 mmHg; VBG pH 7.29 (7.32-7.43); VBG pO2 46 mmHg
[2022-04-04 08:23] LABS: Venous Blood Gas Refer to POC result
[2022-04-04 08:25] LABS: Basophils Absolute Auto 0.1 X10*3/uL (0.0-0.2); Hematocrit 48.1 % (37.0-47.0); Hemoglobin 15.1 g/dl (12.0-16.0); Imm Gran Abs Auto 0.04 X10*3/uL (0.00-0.03); Imm Gran Pct Auto 0.4 % (0.0-0.4); Lymphocytes Absolute Auto 1.2 X10*3/uL (1.2-4.9); Lymphocytes Percent Auto 12.2 % (20-40); Mean Corpuscular HGB Conc 31.4 g/dl (31.0-35.0); Mean Corpuscular Hemoglobin 28.2 pg (27.0-33.0); Mean Corpuscular Volume 89.7 fL (80.0-98.0); Mean Platelet Volume 11.9 fL (9.4-12.3); Monocytes Percent Auto 9.7 % (2-11); Neutrophils Absolute Auto 7.6 x10*3/uL (2.0-8.3); Neutrophils Percent Auto 76.7 % (45-73); Platelet Count 283 X10*3/uL (160-400); Red Blood Count 5.36 X10*6/uL (4.20-5.50); Red Cell Distribution Width 16.2 % (11.0-16.0)
[2022-04-04] MEDS: 0.9 % Sodium Chloride 1,000 ML 999 ML IVCONT (08:31)
[2022-04-04 08:33] LABS: INTERNATIONAL NORM RATIO 1.3 (0.9-1.1)
[2022-04-04] MEDS: cefTRIAXone sodium 1 GM in 0.9 % Sodium Chloride 50 ML IV (08:39)
[2022-04-04] MEDS: Calcium Gluconate/NaCl,Iso-Osm 2 GM/100 ML PLAST..BAG IV (08:53)
[2022-04-04 09:05] LABS: Influenza A PCR NEGATIVE (Negative); Influenza B PCR NEGATIVE (Negative); Resp Syncy Virus RNA Qual PCR NEGATIVE (Negative); SARS COV2 PCR INHOUSE NEGATIVE (Negative)
--- NOTE | 2022-04-04 09:07 | PC.NURSE ---
Dillard placed by physician verified with ultrasounf no initial urine return will CTM
[2022-04-04 09:09] LABS: Procalcitonin 0.65 ng/mL
[2022-04-04 09:21] LABS: Troponin-I High Sensitivity 250.2 ng/L (<3.5-17.0)
--- NOTE | 2022-04-04 09:29 | PHA.MEDREC ---
Addendum entered by Angelique Barker [facility] 04/04/22 16:23: spoke to beata at [facility] who confirmed last dose of haloperidol was 03/21 Original Note: Pharmacy Consult ? Medication Reconciliation Pharmacy has completed the medication reconciliation. Patient has a list from [facility].
[2022-04-04] MEDS: 0.9 % Sodium Chloride 1,000 ML 999 ML IV (09:53)
[2022-04-04 10:06] LABS: Alanine Aminotransferase 14 U/L (0-31); Albumin Level 3.5 g/dL (3.5-5.0); Alkaline Phosphatase 128 U/L (39-117); Anion Gap 25 (12-20); Aspartate Amino Transferase 36 U/L (5-31); Bilirubin Direct < 0.2 mg/dL (0.0-0.5); Bilirubin Total 0.4 mg/dL (0.0-1.0); Blood Urea Nitrogen 89 mg/dL (9-16); Carbon Dioxide 14 mmol/L (22-29); Chloride 118 mmol/L (96-108); Creatinine Clr Calc Pharmacy 7.6; Estimated Glomerular Filt Rate 8; Glucose Random 119 mg/dL (60-115); Lipase 67 U/L (8-78); Magnesium 2.2 mg/dL (1.6-2.6); Potassium 6.5 mmol/L (3.3-5.1); Sodium 150 mmol/L (135-145); Total Protein 7.3 g/dL (6.5-8.0)
[2022-04-04 10:07] LABS: Lactic Acid 2.6 mmol/L (0.5-2.0)
[2022-04-04] MEDS: Albuterol Sulfate (0.083%) 2.5 MG/3 ML VIAL.NEB INHALE (10:27)
[2022-04-04] MEDS: Dextrose 50 % 25 GM/50 ML SYRINGE IVPUSH (10:28)
[2022-04-04] MEDS: Sodium Zirconium Cyclosilicate 5 GM POWD.PACK PO (10:28)
[2022-04-04] MEDS: Insulin Regular, Human 100 UNIT/ML 3 ML VIAL IVPUSH (10:53)
[2022-04-04 11:15] LABS: Reflex Lactate? Lactic Acid Added
[2022-04-04 11:17] LABS: Troponin-I High Sensitivity 164.3 ng/L (<3.5-17.0)
[2022-04-04 11:17] LABS: Glucose, Whole Blood 196 mg/dL (60-115)
[2022-04-04 11:44] VITALS: BP 127/77; PULSE 90; RESP 18; TEMP 36.3; O2SAT 98
--- NOTE | 2022-04-04 12:03 | PC.NURSE ---
Patient at baseline mentation calls out does not follow commands afebrile post tylenol admin will CTM
[2022-04-04 12:11] LABS: ~Lactic Acid-LAB USE ONLY 1.9 mmol/L (0.5-2.0)
[2022-04-04 12:15] LABS: Anion Gap 18 (12-20); Blood Urea Nitrogen 85 mg/dL (9-16); Calcium 9.2 mg/dL (8.4-10.2); Carbon Dioxide 13 mmol/L (22-29); Chloride 122 mmol/L (96-108); Creatinine Clr Calc Pharmacy 8.5; Estimated Glomerular Filt Rate 9; Glucose Random 222 mg/dL (60-115); Potassium 4.3 mmol/L (3.3-5.1); Sodium 149 mmol/L (135-145)
[2022-04-04 12:29] LABS: Appearance Urine Clear; Color Urine Yellow; Glucose Urine UA 250 mg/dL (Negative); Leukocyte Esterase Urine Moderate (2+) (Negative); Nitrite Urine Negative (Negative); UMIC TRIGGER UACC YES; Urine Blood Large (3+) (Negative); Urine Ketones Negative (Negative); Urine Protein 100 (2+) mg/dL (Neg-Trace)
[2022-04-04 12:31] LABS: Bacteria Urine None Seen (None Seen); Hyaline Casts Urine 0-2 /LPF (0-2); RBC Urine >20 /HPF (0-2); UACC Culture Trigger YES
[2022-04-04] MEDS: 0.9 % Sodium Chloride 1,000 ML 100 ML IVCONT ×2 (13:08→22:48)
--- NOTE | 2022-04-04 13:43 | P.HPHOSP_ITS ---
History of Present Illness Date of Service: 04/04/22 Attending physician on admission: [facility] Chief Complaint: Confusion 71 year old women from [facility] presenting with fever and tachycardia. Apparently patient had been shaking, nonresponsive and EMS was called for transportation. Unfortunately the patient has a history of dementia and catatonia and is unable to answer any questions during the interview. She has a history of E coli UTI in January of 2022. She had multiple lab abnormalities including, sodium 150, potassium 6.5, creatinine 5.20, anion gap 25, lactic acid 2.6, creatinine kinase 272, troponin 164.3, urinalysis positive, chest x-ray negative for consolidation or effusion. She had fever, tachycardia and lactic acidosis. She was given IV fluids, Tylenol, Rocephin, Lokelma, albuterol, insulin and dextrose. She will be admitted for further management and treatment of severe sepsis secondary to UTI. Review of Systems Review of Systems: Yes Unobtainable due to mental condition [facility] Medical History (Updated 04/04/22 @ 14:19 by Irma Morgan NP) Accidental poisoning Anemia Anxiety Cataract Catatonic disorder due to known physiological condition CHF (congestive heart failure) CKD (chronic kidney disease) stage 4, GFR 15-29 ml/min COPD (chronic obstructive pulmonary disease) Delirium Diabetes insipidus Diabetes mellitus Disorientated Dysphagia Essential (primary) hypertension GERD (gastroesophageal reflux disease) Hyperkalemia Hyperosmolality Major depressive disorder Manic behavior Metabolic encephalopathy Presbyopia STEMI (ST elevation myocardial infarction) Subarachnoid hemorrhage Venous thromboembolism (VTE) Family History Father No problems noted. Mother No problems noted. Surgical History History of lumpectomy of left breast (~05/2012) Social History Household Members: Unknown / Unable to assess Housing: Unknown / Unable to assess Unable to assess alcohol history related to: Unable to respond Alcohol intake: unknown Patient Tobacco Use Status: Tobacco use Unknown Smoked in Last 30 Days: No Use of substances other than those prescribed or required for medical reasons: Unknown Advance Directives: Yes Advance Directives Information Provided: No Advance Directives on File: No Meds Allergies Allergy/AdvReac Type Severity Reaction Status Date / Time oxycodone [OXYCODONE] Allergy Unknown UNK Verified 01/25/20 18:12 pregabalin [PREGABALIN] Allergy Unknown UNK Verified 01/25/20 18:12 tramadol [TRAMADOL] Allergy Unknown UNK Verified 01/25/20 18:12 Active Medications: Current Medications Sodium Chloride (Ns) 1,000 mls @ 100 mls/hr IVCONT .Q10H [place] Last Admin: 04/04/22 13:08 Dose: 100 mls/hr Pharmacy Consult (Consult Rx Perform Med Rec) 1 each MISCELLANE ONCE PRN PRN Reason: Consult order Home Medications Medication Instructions Recorded Confirmed Last Taken Type cholecalciferol (vitamin D3) 50 50 mcg PO DAILY 02/25/20 04/04/22 02/01/22 History mcg (2,000 unit) capsule desipramine 50 mg tablet 50 mg PO BEDTIME 02/25/20 04/04/22 01/31/22 History glucagon 1 mg/0.2 mL subcutaneous 1 mg subcut Q15M PRN HYPOGLYCEMIC 02/25/20 04/04/22 Unknown History auto-injector EVENT metoprolol tartrate 25 mg tablet 12.5 mg PO BID 02/25/20 04/04/22 02/01/22 History mirtazapine 30 mg tablet 30 mg PO BEDTIME 02/25/20 04/04/22 01/31/22 History diazepam 2 mg tablet 1 mg PO BID 02/01/22 04/04/22 02/01/22 History furosemide 20 mg tablet 20 mg PO DAILY 02/01/22 04/04/22 02/01/22 History haloperidol decanoate 50 mg/mL 30 mg IM Q14D 02/01/22 04/04/22 Unknown History intramuscular solution (Haldol Decanoate) oxcarbazepine 300 mg/5 mL (60 300 mg PO BID 02/01/22 04/04/22 02/01/22 History mg/mL) oral suspension pantoprazole 40 mg tablet,delayed 40 mg PO DAILY@0630 02/01/22 04/04/22 02/01/22 History release perphenazine 2 mg tablet 2 mg PO BID 02/01/22 04/04/22 02/01/22 History perphenazine 4 mg tablet 4 mg PO BID 02/01/22 04/04/22 02/01/22 History sennosides 8.6 mg tablet (senna) 8.6 mg PO DAILY PRN Constipation 02/01/22 04/04/22 Unknown History sodium zirconium cyclosilicate 10 10 g PO BEDTIME 02/01/22 04/04/22 02/01/22 History gram oral powder packet (Lokelma) acetaminophen 325 mg tablet 650 mg PO Q4H PRN Fever Or Pain 04/04/22 04/04/22 Unknown History apixaban 5 mg tablet 5 mg PO BID 04/04/22 04/04/22 Unknown History aspirin 81 mg chewable tablet 81 mg PO DAILY 04/04/22 04/04/22 Unknown History atorvastatin 80 mg tablet 80 mg PO BEDTIME 04/04/22 04/04/22 Unknown History bisacodyl 10 mg rectal suppository 10 mg SC DAILY PRN Constipation 04/04/22 04/04/22 Unknown History hydroxyzine HCl 10 mg/5 mL oral 12.5 mg PO Q4H PRN Itching 04/04/22 04/04/22 Unknown History solution melatonin 3 mg tablet 6 mg PO BEDTIME 04/04/22 04/04/22 Unknown History sodium bicarbonate 650 mg tablet 650 mg PO DAILY@1400 04/04/22 04/04/22 Unknown History sodium zirconium cyclosilicate 10 20 g PO DAILY 04/04/22 04/04/22 Unknown History gram oral powder packet (Lokelma) Physical Exam Vital Signs and Narrative: Vital Signs: Last Vital Signs Temp 97.4 F 04/04/22 11:44 Pulse 90 04/04/22 11:44 Resp 18 04/04/22 11:44 BP 127/77 04/04/22 11:44 Pulse Ox 98 04/04/22 11:44 O2 Del Method 04/04/22 11:44 BMI result Body Mass Index 18.8 Appearing in no acute distress head is normocephalic atraumatic eyes pupils are PERRLA sclera is anicteric mouth throat mucous membranes are intact and moist neck is supple no lymphadenopathy, no JVD noted lung sounds are clear to auscultation heart regular rate rhythm, clear S1, S2 positive bowel sounds, abdomen is soft, nontender neuro patient is alert x3, no focal deficits Results Labs CBC and Chem 7: 04/04/22 08:12 04/04/22 11:44 Labs: Laboratory Results - last 24 hr 04/04/22 04/04/22 04/04/22 08:12 08:12 08:12 MCV 89.7 MCH 28.2 MCHC 31.4 RDW 16.2 H Plt Count 283 D MPV 11.9 Immature Gran % (Auto) 0.4 Neut % (Auto) 76.7 H Lymph % (Auto) 12.2 L [place] % (Auto) 9.7 Eos % (Auto) 0.0 Baso % (Auto) 1.0 Lymph # (Auto) 1.2 [place] # (Auto) 1.0 Eos # (Auto) 0.0 Baso # (Auto) 0.1 Abs Immat Gran (auto) 0.04 H Absolute Neuts (auto) 7.6 Absolute Nucleated RBC 0.000 Nucleated RBC % (auto) 0.0 PT INR VBG pH VBG pCO2 VBG pO2 VBG HCO3 VBG O2 Saturation VBG Base Excess Anion Gap Estim Creat Clear Calc Estimated GFR POC Glucose Random Glucose Lactic Acid Lactic Acid F/U @ 2Hr Calcium Magnesium Total Bilirubin Direct Bilirubin AST ALT Alkaline Phosphatase Total Creatine Kinase Troponin I High Sens 250.2 H* D Total Protein Albumin Lipase Procalcitonin Urine Color Urine Appearance Urine pH Ur Specific [place] Urine Protein Urine Glucose (UA) Urine Ketones Urine Blood Urine Nitrite Ur Leukocyte Esterase Urine RBC Urine WBC Ur Squamous Epith Cells Urine Bacteria Hyaline Casts Influenza Type A (PCR) NEGATIVE Influenza Type B (PCR) NEGATIVE RSV RNA Qual (PCR) NEGATIVE SARS-CoV-2 RNA (RT-PCR) NEGATIVE 04/04/22 04/04/22 04/04/22 08:13 08:13 08:18 MCV MCH MCHC RDW Plt Count MPV Immature Gran % (Auto) Neut % (Auto) Lymph % (Auto) [place] % (Auto) Eos % (Auto) Baso % (Auto) Lymph # (Auto) [place] # (Auto) Eos # (Auto) Baso # (Auto) Abs Immat Gran (auto) Absolute Neuts (auto) Absolute Nucleated RBC Nucleated RBC % (auto) PT 15.0 H INR 1.3 H VBG pH 7.29 L VBG pCO2 26 VBG pO2 46 VBG HCO3 13 L VBG O2 Saturation 67.0 VBG Base Excess -11.6 Anion Gap Estim Creat Clear Calc Estimated GFR POC Glucose Random Glucose Lactic Acid Lactic Acid F/U @ 2Hr Calcium Magnesium Total Bilirubin Direct Bilirubin AST ALT Alkaline Phosphatase Total Creatine Kinase Troponin I High Sens Total Protein Albumin Lipase Procalcitonin 0.65 Urine Color Urine Appearance Urine pH Ur Specific [place] Urine Protein Urine Glucose (UA) Urine Ketones Urine Blood Urine Nitrite Ur Leukocyte Esterase Urine RBC Urine WBC Ur Squamous Epith Cells Urine Bacteria Hyaline Casts Influenza Type A (PCR) Influenza Type B (PCR) RSV RNA Qual (PCR) SARS-CoV-2 RNA (RT-PCR) 04/04/22 04/04/22 04/04/22 09:05 09:05 10:26 MCV MCH MCHC RDW Plt Count MPV Immature Gran % (Auto) Neut % (Auto) Lymph % (Auto) [place] % (Auto) Eos % (Auto) Baso % (Auto) Lymph # (Auto) [place] # (Auto) Eos # (Auto) Baso # (Auto) Abs Immat Gran (auto) Absolute Neuts (auto) Absolute Nucleated RBC Nucleated RBC % (auto) PT INR VBG pH VBG pCO2 VBG pO2 VBG HCO3 VBG O2 Saturation VBG Base Excess Anion Gap 25 H Estim Creat Clear Calc 7.6 Estimated GFR 8 POC Glucose Random Glucose 119 H Lactic Acid 2.6 H* Lactic Acid F/U @ 2Hr Calcium 10.0 D Magnesium 2.2 Total Bilirubin 0.4 Direct Bilirubin < 0.2 AST 36 H ALT 14 Alkaline Phosphatase 128 H Total Creatine Kinase 272 H Troponin I High Sens 164.3 H* Total Protein 7.3 Albumin 3.5 Lipase 67 Procalcitonin Urine Color Urine Appearance Urine pH Ur Specific [place] Urine Protein Urine Glucose (UA) Urine Ketones Urine Blood Urine Nitrite Ur Leukocyte Esterase Urine RBC Urine WBC Ur Squamous Epith Cells Urine Bacteria Hyaline Casts Influenza Type A (PCR) Influenza Type B (PCR) RSV RNA Qual (PCR) SARS-CoV-2 RNA (RT-PCR) 04/04/22 04/04/22 04/04/22 11:14 11:44 11:44 MCV MCH MCHC RDW Plt Count MPV Immature Gran % (Auto) Neut % (Auto) Lymph % (Auto) [place] % (Auto) Eos % (Auto) Baso % (Auto) Lymph # (Auto) [place] # (Auto) Eos # (Auto) Baso # (Auto) Abs Immat Gran (auto) Absolute Neuts (auto) Absolute Nucleated RBC Nucleated RBC % (auto) PT INR VBG pH VBG pCO2 VBG pO2 VBG HCO3 VBG O2 Saturation VBG Base Excess Anion Gap 18 Estim Creat Clear Calc 8.5 Estimated GFR 9 POC Glucose 196 H Random Glucose 222 H Lactic Acid Lactic Acid F/U @ 2Hr 1.9 Calcium 9.2 D Magnesium Total Bilirubin Direct Bilirubin AST ALT Alkaline Phosphatase Total Creatine Kinase Troponin I High Sens Total Protein Albumin Lipase Procalcitonin Urine Color Urine Appearance Urine pH Ur Specific [place] Urine Protein Urine Glucose (UA) Urine Ketones Urine Blood Urine Nitrite Ur Leukocyte Esterase Urine RBC Urine WBC Ur Squamous Epith Cells Urine Bacteria Hyaline Casts Influenza Type A (PCR) Influenza Type B (PCR) RSV RNA Qual (PCR) SARS-CoV-2 RNA (RT-PCR) 04/04/22 12:22 MCV MCH MCHC RDW Plt Count MPV Immature Gran % (Auto) Neut % (Auto) Lymph % (Auto) [place] % (Auto) Eos % (Auto) Baso % (Auto) Lymph # (Auto) [place] # (Auto) Eos # (Auto) Baso # (Auto) Abs Immat Gran (auto) Absolute Neuts (auto) Absolute Nucleated RBC Nucleated RBC % (auto) PT INR VBG pH VBG pCO2 VBG pO2 VBG HCO3 VBG O2 Saturation VBG Base Excess Anion Gap Estim Creat Clear Calc Estimated GFR POC Glucose Random Glucose Lactic Acid Lactic Acid F/U @ 2Hr Calcium Magnesium Total Bilirubin Direct Bilirubin AST ALT Alkaline Phosphatase Total Creatine Kinase Troponin I High Sens Total Protein Albumin Lipase Procalcitonin Urine Color Yellow Urine Appearance Clear Urine pH 6.0 Ur Specific [place] 1.010 Urine Protein 100 (2+) H Urine Glucose (UA) 250 H Urine Ketones Negative Urine Blood Large (3+) H Urine Nitrite Negative Ur Leukocyte Esterase Moderate (2+) H Urine RBC >20 H Urine WBC 11-20 H Ur Squamous Epith Cells 3-5 Urine Bacteria None Seen Hyaline Casts 0-2 Influenza Type A (PCR) Influenza Type B (PCR) RSV RNA Qual (PCR) SARS-CoV-2 RNA (RT-PCR) Imaging Radiologist's Impressions: Impressions Chest X-Ray 04/04/22 08:21 IMPRESSION: No evidence of pneumonia. No acute cardiopulmonary findings. Assessment and Plan (1) Acute kidney injury superimposed on chronic kidney disease: Status: Acute Plan 71 year old women from [facility] with acute encephalopathy Severe sepsis secondary to UTI fever, tachycardia, lactic acidosis hx of ecoli uti start Rocephin follow final cx Acute encephalopathy likely secondary to UTI baseline dementia treat underlying infection CHAVEZ on CKD 4 Likely secondary to UTI and dehydration IV fluids follow BMP Hypernatremia likely secondary to dehydration IV fluids Diabetes 2 ss, ada diet HTN continue lasix and metoprolol COPD no exacerbation mental health continue home medications DVT prophylaxis with Heparin DNR 2 inpatient midnight for tx of severe sepsis secondary to UTI and dehydration Time Spent With Patient Time: Total time managing care of this patient today ____ minutes. Quality Stroke Does the patient have a stroke diagnosis?: No VTE Prior VTE?: No VTE Risk Level:: Medical - moderate - high VTE Device Contraindication: Treatment Not Indicated VTE Drug Contraindication: N/A - Med Ordered
[2022-04-04 13:46] VITALS: BP 126/75; PULSE 81; RESP 18; TEMP 36.6; O2SAT 97
--- NOTE | 2022-04-04 15:13 | PC.NURSE ---
Clarified medication orderes with pharmacy will hold ceftriaxone and will wait on halperidol order until verified with snf will CTM
--- NOTE | 2022-04-04 15:49 | PC.NURSE ---
Waiting for pharmacy to deliver med will ctm
--- NOTE | 2022-04-04 18:10 | PC.NURSE ---
Paitient sleeping is easily aroused will CTM
[2022-04-04 18:15] VITALS: BP 121/82; PULSE 78; RESP 14; TEMP 36.6; O2SAT 97
--- NOTE | 2022-04-04 19:00 | PC.NURSE ---
Addendum entered by Alta Montero RN 04/05/22 04:16: reportgiven to CHAVO Ureña Addendum entered by Alta Montero RN 04/04/22 19:27: pt alert, not verbal at this time. resting in bed comfortably pt on continuos cardiac monitoring perry, intact and not obstructive pt repositioned in the bed close monitoring maintained Original Note: report received from CHAVO Ochoa
[2022-04-04 19:26] VITALS: BP 134/79; PULSE 81; RESP 19; TEMP 36.4; O2SAT 96
[2022-04-04] MEDS: Metoprolol Tartrate 12.5 MG HALFTAB PO (22:32)
[2022-04-04] MEDS: diazePAM 2 MG TABLET 1 MG PO (22:34)
[2022-04-04] MEDS: Apixaban 5 MG TABLET PO (22:34)
[2022-04-04] MEDS: Melatonin 3 MG TABLET 6 MG PO (22:34)
[2022-04-04] MEDS: Atorvastatin Calcium 80 MG TABLET PO (22:34)
[2022-04-04] MEDS: Sodium Zirconium Cyclosilicate 10 GM POWD.PACK PO (22:36)
[2022-04-04] MEDS: Sodium Bicarbonate 650 MG TABLET PO (22:36)
[2022-04-04] MEDS: Sodium Bicarbonate 650 MG TABLET 1300 MG PO (22:44)
[2022-04-04 23:44] VITALS: BP 134/73; PULSE 61; RESP 17; O2SAT 100
[2022-04-05] VITALS (7 sets, daily range): BP systolic 111–151; BP diastolic 58–97; PULSE 57–83; RESP 13–19; TEMP 36.3–37.2; O2SAT 93–100; BMI 19.3
[2022-04-05] MEDS: 0.9 % Sodium Chloride 1,000 ML 100 ML IVCONT (08:20)
--- NOTE | 2022-04-05 09:22 | HO.PM.IMPN ---
Subjective Subjective Date of Service: 04/05/22 Review of Systems Follow up sepsis, UTI non verbal, dementia laying in bed RR called for nonresponsiveness Physical Exam Vital Signs: Vital Signs: Last Vital Signs Temp 97.5 F 04/05/22 07:36 Pulse 57 04/05/22 07:36 Resp 16 04/05/22 07:36 BP 151/71 H 04/05/22 07:36 Pulse Ox 96 04/05/22 07:36 O2 Del Method 04/05/22 07:36 BMI result Body Mass Index 19.3 Appearing in no acute distress lung sounds are clear to auscultation heart regular rate rhythm, clear S1, S2 positive bowel sounds, abdomen is soft, nontender neuro patient is alert, non verbal LE contractures Objective Data Active Medications Acetaminophen (Acetaminophen 325 Mg Tablet) 650 mg PO Q4H PRN PRN Reason: Fever Or Pain Apixaban (Apixaban 5 Mg Tablet) 5 mg PO BID [facility] Last Admin: 04/04/22 22:34 Dose: 5 mg Documented By: ALONSO-EMMIEICL Aspirin (Aspirin 81 Mg Tab.Chew) 81 mg PO DAILY [facility] Atorvastatin Calcium (Atorvastatin Calcium 80 Mg Tablet) 80 mg PO BEDTIME [facility] Last Admin: 04/04/22 22:34 Dose: 80 mg Documented By: ALONSO-EMMIEICL Bisacodyl (Bisacodyl 10 Mg Supp.Rect) 10 mg HI DAILY PRN PRN Reason: Constipation Diazepam (Diazepam 2 Mg Tablet) 1 mg PO BID [facility] Last Admin: 04/04/22 22:34 Dose: 1 mg Documented By: ALONSO-ADIEL Furosemide (Furosemide 20 Mg Tablet) 20 mg PO DAILY [facility]; Protocol Haloperidol Decanoate (Haloperidol Decanoate 50 Mg/Ml Ampul) 30 mg IM Q14D [facility] Last Admin: 04/04/22 16:36 Dose: 30 mg Documented By: LIZETH Hydroxyzine HCl (Hydroxyzine Hcl 25 Mg Tablet) 12.5 mg PO Q4H PRN PRN Reason: Itching Sodium Chloride (Ns) 1,000 mls @ 100 mls/hr IVCONT .Q10H [facility] Last Admin: 04/05/22 08:20 Dose: 100 mls/hr Documented By: ERICA Ceftriaxone Sodium 1 gm/ (Sodium Chloride) 50 mls @ 100 mls/hr IV Q24H [facility] Melatonin (Melatonin 3 Mg Tablet) 6 mg PO BEDTIME [facility] Last Admin: 04/04/22 22:34 Dose: 6 mg Documented By: ALONSO-ANICL Metoprolol Tartrate (Metoprolol Tartrate 12.5 Mg Halftab) 12.5 mg PO BID [facility]; Protocol Last Admin: 04/04/22 22:32 Dose: 12.5 mg Documented By: ALONSO-ANICL Mirtazapine (Mirtazapine 30 Mg Tablet) 30 mg PO BEDTIME [facility] Last Admin: 04/04/22 22:51 Dose: Not Given Documented By: ALONSO-ADIEL Non-Admin Reason: Patient Refused Non-Formulary Medication (Desipramine) 50 mg PO BEDTIME [facility] Non-Formulary Medication (Oxcarbazepine) 300 mg PO BID [facility] Omeprazole (Omeprazole 20 Mg Capsule.Dr) 20 mg PO DAILY@0630 [facility] Last Admin: 04/05/22 06:28 Dose: Not Given Documented By: PARIS Non-Admin Reason: Patient Refused Ondansetron HCl (Ondansetron Hcl 4 Mg/2 Ml Vial) 4 mg IVPUSH Q8H PRN PRN Reason: Nausea and Vomiting Perphenazine (Perphenazine 2 Mg Tablet) 2 mg PO BID [facility] Last Admin: 04/04/22 22:52 Dose: Not Given Documented By: ALONSO-ADIEL Non-Admin Reason: Patient Refused Perphenazine (Perphenazine 4 Mg Tablet) 4 mg PO BID [facility] Last Admin: 04/04/22 22:52 Dose: Not Given Documented By: ALONSO-EMMIEICL Non-Admin Reason: Patient Refused Pharmacy Consult (Consult Rx Perform Med Rec) 1 each MISCELLANE ONCE PRN PRN Reason: Consult order Senna (Sennosides 8.6 Mg Tablet) 8.6 mg PO DAILY PRN PRN Reason: Constipation Sodium Bicarbonate (Sodium Bicarbonate 650 Mg Tablet) 650 mg PO DAILY@1400 [facility] Last Admin: 04/04/22 22:36 Dose: 650 mg Documented By: ALONSO-ADIEL Sodium Bicarbonate (Sodium Bicarbonate 650 Mg Tablet) 1,300 mg PO BID [facility] Last Admin: 04/04/22 22:44 Dose: 1,300 mg Documented By: ALONSO-EMMIEICL Sodium Chloride (0.9 % Sodium Chloride Flush 3 Ml Syringe) 3 ml IVFLUSH QSHIFT [facility] Last Admin: 04/05/22 08:16 Dose: Not Given Documented By: ERICA Non-Admin Reason: IV Running Sodium Zirconium Cyclosilicate (Sodium Zirconium Cyclosilicate 10 Gm Powd.Pack) 10 gm PO BEDTIME [facility] Last Admin: 04/04/22 22:36 Dose: 10 gm Documented By: ALONSO-ANICL Sodium Zirconium Cyclosilicate (Sodium Zirconium Cyclosilicate 10 Gm Powd.Pack) 20 gm PO DAILY [facility] Vitamin D (Cholecalciferol (Vitamin D3) 25 Mcg Tablet) 50 mcg PO DAILY [facility] Labs CBC & Chem 7: 04/04/22 08:12 04/04/22 11:44 Labs: Laboratory Results - last 24 hr 04/04/22 04/04/22 04/04/22 08:12 09:05 09:05 Anion Gap 25 H Estim Creat Clear Calc 7.6 Estimated GFR 8 POC Glucose Random Glucose 119 H Lactic Acid 2.6 H* Lactic Acid F/U @ 2Hr Calcium 10.0 D Magnesium 2.2 Total Bilirubin 0.4 Direct Bilirubin < 0.2 AST 36 H ALT 14 Alkaline Phosphatase 128 H Total Creatine Kinase 272 H Troponin I High Sens 250.2 H* D Total Protein 7.3 Albumin 3.5 Lipase 67 Urine Color Urine Appearance Urine pH Ur Specific [place] Urine Protein Urine Glucose (UA) Urine Ketones Urine Blood Urine Nitrite Ur Leukocyte Esterase Urine RBC Urine WBC Ur Squamous Epith Cells Urine Bacteria Hyaline Casts 04/04/22 04/04/22 04/04/22 10:26 11:14 11:44 Anion Gap Estim Creat Clear Calc Estimated GFR POC Glucose 196 H Random Glucose Lactic Acid Lactic Acid F/U @ 2Hr 1.9 Calcium Magnesium Total Bilirubin Direct Bilirubin AST ALT Alkaline Phosphatase Total Creatine Kinase Troponin I High Sens 164.3 H* Total Protein Albumin Lipase Urine Color Urine Appearance Urine pH Ur Specific [place] Urine Protein Urine Glucose (UA) Urine Ketones Urine Blood Urine Nitrite Ur Leukocyte Esterase Urine RBC Urine WBC Ur Squamous Epith Cells Urine Bacteria Hyaline Casts 04/04/22 04/04/22 11:44 12:22 Anion Gap 18 Estim Creat Clear Calc 8.5 Estimated GFR 9 POC Glucose Random Glucose 222 H Lactic Acid Lactic Acid F/U @ 2Hr Calcium 9.2 D Magnesium Total Bilirubin Direct Bilirubin AST ALT Alkaline Phosphatase Total Creatine Kinase Troponin I High Sens Total Protein Albumin Lipase Urine Color Yellow Urine Appearance Clear Urine pH 6.0 Ur Specific [place] 1.010 Urine Protein 100 (2+) H Urine Glucose (UA) 250 H Urine Ketones Negative Urine Blood Large (3+) H Urine Nitrite Negative Ur Leukocyte Esterase Moderate (2+) H Urine RBC >20 H Urine WBC 11-20 H Ur Squamous Epith Cells 3-5 Urine Bacteria None Seen Hyaline Casts 0-2 Microbiology Microbiology Results: Microbiology 04/04/22 Unknown Urine Culture - Final Urine clean catch - Urine solano top No growth. 04/04/22 08:12 Blood Culture - Preliminary Blood - Venous Prelim: GPC Gram Stain only Assessment and Plan (1) Acute kidney injury superimposed on chronic kidney disease: Status: Acute Plan 71 year old women from [facility] with acute encephalopathy Unresponsiveness RR called, period of unresponsiveness BS 38 oral glucose given follow bs closely discussed with provider at [facility], patient tends to wax and wane with alertness GPC bacteremia 1/2 pos start Vancomycin follow final cx Severe sepsis secondary to UTI fever, tachycardia, lactic acidosis? hx of ecoli uti Rocephin follow final cx Acute encephalopathy likely secondary to UTI baseline dementia treat underlying infection CHAVEZ on CKD 4. Trending down Likely secondary to UTI and dehydration IV fluids follow BMP Hypernatremia likely secondary to dehydration IV fluids Diabetes 2 ss, ada diet HTN continue lasix and metoprolol COPD no exacerbation mental health continue home medications DVT prophylaxis with Heparin DNR Attending Dr. Sherwood Patient requires continued hospitalization due to severe sepsis secondary to UTI and dehydration Time Spent With Patient Time: Total time managing care of this patient today ____ minutes. Quality Stroke Does the patient have a stroke diagnosis?: No VTE Prior VTE?: No VTE Risk Level:: Medical - moderate - high VTE Device Contraindication: Treatment Not Indicated VTE Drug Contraindication: N/A - Med Ordered
[2022-04-05] MEDS: cefTRIAXone sodium 1 GM in 0.9 % Sodium Chloride 50 ML IV (09:37)
[2022-04-05] MEDS: vancomycin HCL 1,250 MG in 0.9 % Sodium Chloride 250 ML 166.67 MG IV (10:32)
[2022-04-05 11:01] LABS: Glucose, Whole Blood 38 mg/dL (60-115)
[2022-04-05 11:25] LABS: Glucose, Whole Blood 54 mg/dL (60-115)
--- NOTE | 2022-04-05 11:25 | MHC.CLN ---
RE: CONSULT PT IS MODERATELY MALNOURISHED PT WITH MILDLY DEPLETED MUSCLE MASS, 13% SIGNIFICANT WT LOSS X 2 MONTHS AND INCREASED NUTRITION RISK R/T ACUTE ILLNESS DIET RX: 1800DM-APPROPRIATE NSG AT BEDSIDE GIVING PT'S BEVERAGES. PT DRINKING WELL AND ASKING FOR A HOT DOG RECOMMEND ADDING ENSURE BID TO INCREASE KCALS SUPP TO PROVIDE 700KCALS, 40G PROTEIN MONITOR PO INTAKE CLOSELY SEE ALSO FULL CLINICAL NUTRITION ASSESSMENT
[2022-04-05 11:49] LABS: Anion Gap 17 (12-20); Blood Urea Nitrogen 73 mg/dL (9-16); Calcium 8.6 mg/dL (8.4-10.2); Carbon Dioxide 13 mmol/L (22-29); Chloride 119 mmol/L (96-108); Creatinine Clr Calc Pharmacy 10.5; Estimated Glomerular Filt Rate 12; Glucose Random 61 mg/dL (60-115); Magnesium 1.8 mg/dL (1.6-2.6); Potassium 4.9 mmol/L (3.3-5.1); Sodium 144 mmol/L (135-145)
--- NOTE | 2022-04-05 12:12 | P.CONNP_ITS ---
History of Present Illness Reason for Consult Consult date: 04/05/22 Chief Complaint Chief complaint: Severe Sepsis Secondary to UTI Encephalopathy History of Present Illness Narrative: 71 year old patient with history of severe CKD [facility] with altered mental status and found to have worsening kidney function and elevated serum potassium. The patient is unable to give any history and most of the history is obtained f rom reviewing medical records. She wasd noted tto have fever and tachycardia ands apparently she has been shaking, nonresponsive. Unfortunately the patient has a history of dementia and catatonia and is unable to answer any questions during the interview.? Review of Systems Review of Systems unobtainable [facility] Past Medical History Medical History (Updated 04/05/22 @ 12:17 by Darvin Roldan MD) Accidental poisoning Anemia Anxiety Cataract Catatonic disorder due to known physiological condition CHF (congestive heart failure) CKD (chronic kidney disease) stage 4, GFR 15-29 ml/min COPD (chronic obstructive pulmonary disease) Delirium Diabetes insipidus Diabetes mellitus Disorientated Dysphagia Essential (primary) hypertension GERD (gastroesophageal reflux disease) Hyperkalemia Hyperosmolality Major depressive disorder Manic behavior Metabolic encephalopathy Presbyopia STEMI (ST elevation myocardial infarction) Subarachnoid hemorrhage Venous thromboembolism (VTE) Family History Family History Father No problems noted. Mother No problems noted. Surgical History Surgical History History of lumpectomy of left breast (~05/2012) Social History Social History Household Members: Unknown / Unable to assess Housing: Skilled Nursing Unable to assess alcohol history related to: Unknown Alcohol intake: unknown Patient Tobacco Use Status: Tobacco use Unknown Meds Allergies Allergy/AdvReac Type Severity Reaction Status Date / Time oxycodone [OXYCODONE] Allergy Unknown UNK Verified 01/25/20 18:12 pregabalin [PREGABALIN] Allergy Unknown UNK Verified 01/25/20 18:12 tramadol [TRAMADOL] Allergy Unknown UNK Verified 01/25/20 18:12 Active Medications: Current Medications Acetaminophen (Acetaminophen 325 Mg Tablet) 650 mg PO Q4H PRN PRN Reason: Fever Or Pain Apixaban (Apixaban 5 Mg Tablet) 5 mg PO BID [facility] Last Admin: 04/05/22 10:09 Dose: Not Given Aspirin (Aspirin 81 Mg Tab.Chew) 81 mg PO DAILY [facility] Last Admin: 04/05/22 10:09 Dose: Not Given Atorvastatin Calcium (Atorvastatin Calcium 80 Mg Tablet) 80 mg PO BEDTIME [facility] Last Admin: 04/04/22 22:34 Dose: 80 mg Bisacodyl (Bisacodyl 10 Mg Supp.Rect) 10 mg NM DAILY PRN PRN Reason: Constipation Dextrose (Dextrose 50 % 25 Gm/50 Ml Syringe) 25 gm IVPUSH Q15M PRN PRN Reason: per Hypoglycemia Standing Ord. Diazepam (Diazepam 2 Mg Tablet) 1 mg PO BID [facility] Last Admin: 04/05/22 10:10 Dose: Not Given Furosemide (Furosemide 20 Mg Tablet) 20 mg PO DAILY [facility]; Protocol Last Admin: 04/05/22 10:10 Dose: Not Given Haloperidol Decanoate (Haloperidol Decanoate 50 Mg/Ml Ampul) 30 mg IM Q14D [facility] Last Admin: 04/04/22 16:36 Dose: 30 mg Hydroxyzine HCl (Hydroxyzine Hcl 25 Mg Tablet) 12.5 mg PO Q4H PRN PRN Reason: Itching Ceftriaxone Sodium 1 gm/ (Sodium Chloride) 50 mls @ 100 mls/hr IV Q24H [facility] Last Infusion: 04/05/22 10:38 Dose: Infused Dextrose/Sodium Chloride (D5ns) 1,000 mls @ 100 mls/hr IVCONT .Q10H [facility] Melatonin (Melatonin 3 Mg Tablet) 6 mg PO BEDTIME [facility] Last Admin: 04/04/22 22:34 Dose: 6 mg Metoprolol Tartrate (Metoprolol Tartrate 12.5 Mg Halftab) 12.5 mg PO BID [facility]; Protocol Last Admin: 04/05/22 10:10 Dose: Not Given Mirtazapine (Mirtazapine 30 Mg Tablet) 30 mg PO BEDTIME [facility] Last Admin: 04/04/22 22:51 Dose: Not Given Non-Formulary Medication (Desipramine) 50 mg PO BEDTIME [facility] Non-Formulary Medication (Oxcarbazepine) 300 mg PO BID [facility] Omeprazole (Omeprazole 20 Mg Capsule.Dr) 20 mg PO DAILY@0630 [facility] Last Admin: 04/05/22 06:28 Dose: Not Given Ondansetron HCl (Ondansetron Hcl 4 Mg/2 Ml Vial) 4 mg IVPUSH Q8H PRN PRN Reason: Nausea and Vomiting Perphenazine (Perphenazine 2 Mg Tablet) 2 mg PO BID [facility] Last Admin: 04/05/22 10:10 Dose: Not Given Perphenazine (Perphenazine 4 Mg Tablet) 4 mg PO BID [facility] Last Admin: 04/05/22 10:10 Dose: Not Given Pharmacy Consult (Consult Rx Perform Med Rec) 1 each MISCELLANE ONCE PRN PRN Reason: Consult order Pharmacy Consult (Consult Rx Vancomycin Dosing) 1 each MISCELLANE DAILY PRN PRN Reason: Consult order Senna (Sennosides 8.6 Mg Tablet) 8.6 mg PO DAILY PRN PRN Reason: Constipation Sodium Bicarbonate (Sodium Bicarbonate 650 Mg Tablet) 650 mg PO DAILY@1400 [facility] Last Admin: 04/04/22 22:36 Dose: 650 mg Sodium Bicarbonate (Sodium Bicarbonate 650 Mg Tablet) 1,300 mg PO BID [facility] Last Admin: 04/05/22 10:10 Dose: Not Given Sodium Chloride (0.9 % Sodium Chloride Flush 3 Ml Syringe) 3 ml IVFLUSH QSHIFT [facility] Last Admin: 04/05/22 08:16 Dose: Not Given Sodium Zirconium Cyclosilicate (Sodium Zirconium Cyclosilicate 10 Gm Powd.Pack) 10 gm PO BEDTIME [facility] Last Admin: 04/04/22 22:36 Dose: 10 gm Sodium Zirconium Cyclosilicate (Sodium Zirconium Cyclosilicate 10 Gm Powd.Pack) 20 gm PO DAILY [facility] Last Admin: 04/05/22 10:11 Dose: Not Given Vitamin D (Cholecalciferol (Vitamin D3) 25 Mcg Tablet) 50 mcg PO DAILY [facility] Last Admin: 04/05/22 10:09 Dose: Not Given Home Medications Medication Instructions Recorded Confirmed Last Taken Type cholecalciferol (vitamin D3) 50 50 mcg PO DAILY 02/25/20 04/04/22 02/01/22 History mcg (2,000 unit) capsule desipramine 50 mg tablet 50 mg PO BEDTIME 02/25/20 04/04/22 01/31/22 History glucagon 1 mg/0.2 mL subcutaneous 1 mg subcut Q15M PRN HYPOGLYCEMIC 02/25/20 04/04/22 Unknown History auto-injector EVENT metoprolol tartrate 25 mg tablet 12.5 mg PO BID 02/25/20 04/04/22 02/01/22 History mirtazapine 30 mg tablet 30 mg PO BEDTIME 02/25/20 04/04/22 01/31/22 History diazepam 2 mg tablet 1 mg PO BID 02/01/22 04/04/22 02/01/22 History furosemide 20 mg tablet 20 mg PO DAILY 02/01/22 04/04/22 02/01/22 History haloperidol decanoate 50 mg/mL 30 mg IM Q14D 02/01/22 04/04/22 Unknown History intramuscular solution (Haldol Decanoate) oxcarbazepine 300 mg/5 mL (60 300 mg PO BID 02/01/22 04/04/22 02/01/22 History mg/mL) oral suspension pantoprazole 40 mg tablet,delayed 40 mg PO DAILY@0630 02/01/22 04/04/22 02/01/22 History release perphenazine 2 mg tablet 2 mg PO BID 02/01/22 04/04/22 02/01/22 History perphenazine 4 mg tablet 4 mg PO BID 02/01/22 04/04/22 02/01/22 History sennosides 8.6 mg tablet (senna) 8.6 mg PO DAILY PRN Constipation 02/01/22 04/04/22 Unknown History sodium zirconium cyclosilicate 10 10 g PO BEDTIME 02/01/22 04/04/22 02/01/22 History gram oral powder packet (Lokelma) acetaminophen 325 mg tablet 650 mg PO Q4H PRN Fever Or Pain 04/04/22 04/04/22 Unknown History apixaban 5 mg tablet 5 mg PO BID 04/04/22 04/04/22 Unknown History aspirin 81 mg chewable tablet 81 mg PO DAILY 04/04/22 04/04/22 Unknown History atorvastatin 80 mg tablet 80 mg PO BEDTIME 04/04/22 04/04/22 Unknown History bisacodyl 10 mg rectal suppository 10 mg NM DAILY PRN Constipation 04/04/22 04/04/22 Unknown History hydroxyzine HCl 10 mg/5 mL oral 12.5 mg PO Q4H PRN Itching 04/04/22 04/04/22 Unknown History solution melatonin 3 mg tablet 6 mg PO BEDTIME 04/04/22 04/04/22 Unknown History sodium bicarbonate 650 mg tablet 650 mg PO DAILY@1400 04/04/22 04/04/22 Unknown History sodium zirconium cyclosilicate 10 20 g PO DAILY 04/04/22 04/04/22 Unknown History gram oral powder packet (Lokelma) Physical Exam Vital Signs: Last Vital Signs Temp 98.0 F 04/05/22 11:34 Pulse 59 04/05/22 11:34 Resp 19 04/05/22 11:34 BP 130/58 L 04/05/22 11:34 Pulse Ox 98 04/05/22 11:34 O2 Del Method 04/05/22 11:34 BMI result Body Mass Index 19.3 Const General: alert and awake HEENT Head: Yes normocephalic and Yes atraumatic Resp Auscultation: clear to auscultation bilaterally Cardio Heart sounds: S1 normal heart sound present and S2 normal heart sound present GI Palpation (GI): Soft to palpation and nontender Extrem General: No edema Results Lab Results Result Diagrams: 04/04/22 08:12 04/05/22 Unknown Lab results: Chemistry 04/04/22 04/04/22 04/05/22 09:05 11:44 Unknown Sodium 150 H 149 H 144 Potassium 6.5 H* D 4.3 D 4.9 Carbon Dioxide 14 L 13 L 13 L BUN 89 H 85 H 73 H Creatinine 5.20 H* 4.61 H* 3.80 H Calcium 10.0 D 9.2 D 8.6 D Hematology 04/04/22 08:12 WBC 10.0 Hgb 15.1 D Plt Count 283 D Urinalysis 04/04/22 12:22 Urine Color Yellow Urine Appearance Clear Urine pH 6.0 Ur Specific [place] 1.010 Urine Protein 100 (2+) H Urine Glucose (UA) 250 H Urine Ketones Negative Urine Blood Large (3+) H Urine Nitrite Negative Ur Leukocyte Esterase Moderate (2+) H Urine RBC >20 H Urine WBC 11-20 H Ur Squamous Epith Cells 3-5 Hyaline Casts 0-2 Assessment and Plan (1) CHAVEZ (acute kidney injury): Status: Acute (2) Hyperkalemia: Status: Acute (3) Metabolic acidosis: Status: Acute (4) CKD (chronic kidney disease) stage 4, GFR 15-29 ml/min: Status: Acute Plan CHAVEZ due to compromised kidney perfusion and tubular stress other less likely 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 Procedures Date of Service Date of Service: 04/05/22
--- NOTE | 2022-04-05 12:49 | MHC.CM.PN ---
CM spoke with Son/Primary Contact/Deshaun @ [phone] and addressed IMM with him (original will be mailed certified mail to Deshaun and a copy has been placed on the chart). Patient is a LTC [facility] of [facility] @ [facility] and returning to LTC there is the goal; KAITLYNN has initiated and will follow for dc planning.
[2022-04-05] MEDS: Dextrose 5 % and 0.9 % NaCl 1,000 ML 100 ML IVCONT ×2 (13:03→23:25)
--- NOTE | 2022-04-05 13:52 | MHC.CM.PN ---
KAITLYNN was asked to return a call to [facility] Animal Cop/Kristen @ [phone]; KAITLYNN did call but the phone just rang with no opportunity to leave a message.
--- NOTE | 2022-04-05 13:53 | PHA.PROG ---
Admission Date/Time: April 04, 2022 14:25 Indication: BACTEREMIA Weight in k kg Adjusted body weight in Kg: [place] body weight in Kg: Obesity Dosing Indication % IBW: Serum Creatinine - Last 168 Hours 04/04/22 04/04/22 04/05/22 09:05 11:44 10:53 Creatinine 5.20 H* 4.61 H* 3.80 H Estimated CrCl and GFR - Last 168 Hours 04/04/22 04/04/22 04/05/22 09:05 11:44 10:53 Estim Creat Clear Calc 7.6 8.5 10.5 Estimated GFR 8 9 12 Vancomycin Loading Dose: 1250 MG Current Vancomycin Dosing Regimen: 500 Q48 Vancomycin Monitoring using AUC goal of 400 - 600 range with trough as surrogate marker: AUC 391, TROUGH 13.2 Date and Time for next Vancomycin Level to be drawn: 04/07 @0800 Pharmacist Comments on Vancomycin Plan: WILL CHANGE TO Q24HR DOSING ONCE RENAL FUNCTION IMPROVES Vancomycin dosing will take advantage of Vysr as a clinical decision support tool that uses Bayesian modeling to calculate individual patient's pharmacokinetic parameters and forecast the patient's drug concentration time course with the target goal AUC 24 range of 400 - 600 mg/L/hr.
[2022-04-05 16:02] LABS: Basophils Percent Auto 0.3 % (0-2); Eosinophils Absolute Auto 0.1 X10*3/uL (0.0-0.4); Eosinophils Percent Auto 1.4 % (0-4); Hemoglobin 12.5 g/dl (12.0-16.0); Imm Gran Abs Auto 0.04 X10*3/uL (0.00-0.03); Imm Gran Pct Auto 0.4 % (0.0-0.4); Lymphocytes Absolute Auto 0.9 X10*3/uL (1.2-4.9); Lymphocytes Percent Auto 9.4 % (20-40); Mean Corpuscular HGB Conc 31.3 g/dl (31.0-35.0); Mean Corpuscular Hemoglobin 28.2 pg (27.0-33.0); Mean Corpuscular Volume 90.3 fL (80.0-98.0); Mean Platelet Volume 12.3 fL (9.4-12.3); Monocytes Absolute Auto 0.3 X10*3/uL (0.1-1.2); Monocytes Percent Auto 3.5 % (2-11); Neutrophils Absolute Auto 7.9 x10*3/uL (2.0-8.3); Platelet Count 157 X10*3/uL (160-400); Red Blood Count 4.43 X10*6/uL (4.20-5.50); Red Cell Distribution Width 16.3 % (11.0-16.0); White Blood Count 9.3 X10*3/uL (4.8-10.8)
[2022-04-05 16:38] LABS: Glucose, Whole Blood 98 mg/dL (60-115)
[2022-04-05 20:12] LABS: Glucose, Whole Blood 126 mg/dL (60-115)
[2022-04-05] MEDS: diazePAM 2 MG TABLET 1 MG PO (23:33)
[2022-04-05] MEDS: Metoprolol Tartrate 12.5 MG HALFTAB PO (23:33)
[2022-04-05] MEDS: Perphenazine 4 MG TABLET PO (23:33)
[2022-04-05] MEDS: Mirtazapine 30 MG TABLET PO (23:33)
[2022-04-05] MEDS: Apixaban 5 MG TABLET PO (23:34)
[2022-04-05] MEDS: Perphenazine 2 MG TABLET PO (23:34)
[2022-04-05] MEDS: Sodium Bicarbonate 650 MG TABLET 1300 MG PO (23:47)
[2022-04-05] MEDS: Melatonin 3 MG TABLET 6 MG PO (23:48)
[2022-04-05] MEDS: Atorvastatin Calcium 80 MG TABLET PO (23:48)
[2022-04-05] MEDS: Sodium Zirconium Cyclosilicate 10 GM POWD.PACK PO (23:49)
[2022-04-06] MEDS: 0.9 % Sodium Chloride Flush 3 ML SYRINGE IVFLUSH (00:03)
[2022-04-06 03:58] VITALS: BP 147/98; PULSE 65; RESP 20; TEMP 37.1; O2SAT 93
[2022-04-06 07:42] LABS: Glucose, Whole Blood 114 mg/dL (60-115)
[2022-04-06 07:57] VITALS: BP 117/58; PULSE 61; RESP 20; TEMP 36.7; O2SAT 96
[2022-04-06] MEDS: Sodium Zirconium Cyclosilicate 10 GM POWD.PACK 20 GM PO (09:25)
[2022-04-06] MEDS: Dextrose 5 % and 0.9 % NaCl 1,000 ML 100 ML IVCONT (09:35)
[2022-04-06] MEDS: cefTRIAXone sodium 1 GM in 0.9 % Sodium Chloride 50 ML IV (09:37)
--- NOTE | 2022-04-06 09:59 | PM.DS ---
DS: Providers Provider Date of Service: 04/06/22 Date of admission: 04/04/22 14:25 Primary care physician: Jeancarlos Wang DO Consults: 04/04/22 10:36 Consult to Nephrology Stat Consulting Provider: Darvin Roldan Reason for consultation: hyperkalemia Has provider been notified: Yes Attending physician on discharge: Iglesia Sherwood Discharging clinician: Irma Morgan DS: Diagnosis Discharge Diagnosis (1) CHAVEZ (acute kidney injury): Status: Acute (2) Hyperkalemia: Status: Acute (3) Metabolic acidosis: Status: Acute (4) CKD (chronic kidney disease) stage 4, GFR 15-29 ml/min: Status: Acute DS: Summary Hospital Course Hospital Course: 71 year old women from [facility] presenting with fever and tachycardia.? Apparently patient had been shaking, nonresponsive and EMS was called for transportation.? Unfortunately the patient has a history of dementia and catatonia and is unable to answer any questions during the interview.? She has a history of E coli UTI in January of 2022.? She had multiple lab abnormalities including, sodium 150, potassium 6.5, creatinine 5.20, anion gap 25, lactic acid 2.6, creatinine kinase 272, troponin 164.3, urinalysis positive,? chest x-ray negative for consolidation or effusion.? She had fever, tachycardia and lactic acidosis.? She was given IV fluids, Tylenol, Rocephin, Lokelma, albuterol, insulin and dextrose.? She will be admitted for further management and treatment of severe sepsis secondary to UTI. Unresponsiveness. Resolved possibly secondary to Hypoglycemia RR called, period of unresponsiveness BS 38 oral glucose given discussed with provider at [facility], patient tends to wax and wane with alertness D5NS started coag neg staph 1/2 pos stop Vancomycin Severe sepsis secondary to UTI. Resolved fever, tachycardia, lactic acidosis? hx of ecoli uti Rocephin no growth on urine cx, complete ceftin for 3 more days Acute encephalopathy likely secondary to UTI baseline dementia treat underlying infection CHAVEZ on CKD 4. baseline Likely secondary to UTI and dehydration treated with IV fluids Hypernatremia likely secondary to dehydration treated with IV fluids Diabetes 2 continue home medications Time Spent with Patient Time attestation: Total time managing care of this patient today ____ minutes. Discharge coordination time: Greater than 30 minutes Quality: Safe Use of Opioids Does Pt have an Active Cancer Diagnosis on the Problem List?: No Quality: Stroke Does the patient have a stroke diagnosis?: No Physical Exam Vital Signs: Vital Signs: Last Vital Signs Temp 98.1 F 04/06/22 07:57 Pulse 61 04/06/22 07:57 Resp 20 04/06/22 07:57 BP 117/58 L 04/06/22 07:57 Pulse Ox 96 04/06/22 07:57 O2 Del Method 04/06/22 07:57 BMI result Body Mass Index 19.3 Appearing in no acute distress head is normocephalic atraumatic eyes pupils are PERRLA sclera is anicteric mouth throat mucous membranes are intact and moist neck is supple no lymphadenopathy, no JVD noted lung sounds are clear to auscultation heart regular rate rhythm, clear S1, S2 positive bowel sounds, abdomen is soft, nontender neuro patient is alert x3, some confusion LE contractures DS: Data Data Completed and Pending Labs on day of discharge: Laboratory Results - last 24 hr 04/05/22 04/05/22 04/05/22 10:53 10:57 11:21 WBC RBC Hgb Hct MCV MCH MCHC RDW Plt Count MPV Immature Gran % (Auto) Neut % (Auto) Lymph % (Auto) [place] % (Auto) Eos % (Auto) Baso % (Auto) Lymph # (Auto) [place] # (Auto) Eos # (Auto) Baso # (Auto) Abs Immat Gran (auto) Absolute Neuts (auto) Absolute Nucleated RBC Nucleated RBC % (auto) Sodium 144 Potassium 4.9 Chloride 119 H Carbon Dioxide 13 L Anion Gap 17 BUN 73 H Creatinine 3.80 H Estim Creat Clear Calc 10.5 Estimated GFR 12 POC Glucose 38 L* 54 L* Random Glucose 61 Calcium 8.6 D Magnesium 1.8 04/05/22 04/05/22 04/05/22 15:54 16:33 19:56 WBC 9.3 RBC 4.43 Hgb 12.5 Hct 40.0 MCV 90.3 MCH 28.2 MCHC 31.3 RDW 16.3 H Plt Count 157 L D MPV 12.3 Immature Gran % (Auto) 0.4 Neut % (Auto) 85.0 H Lymph % (Auto) 9.4 L [place] % (Auto) 3.5 Eos % (Auto) 1.4 Baso % (Auto) 0.3 Lymph # (Auto) 0.9 L [place] # (Auto) 0.3 Eos # (Auto) 0.1 Baso # (Auto) 0.0 Abs Immat Gran (auto) 0.04 H Absolute Neuts (auto) 7.9 Absolute Nucleated RBC 0.000 Nucleated RBC % (auto) 0.0 Sodium Potassium Chloride Carbon Dioxide Anion Gap BUN Creatinine Estim Creat Clear Calc Estimated GFR POC Glucose 98 126 H Random Glucose Calcium Magnesium 04/06/22 07:35 WBC RBC Hgb Hct MCV MCH MCHC RDW Plt Count MPV Immature Gran % (Auto) Neut % (Auto) Lymph % (Auto) [place] % (Auto) Eos % (Auto) Baso % (Auto) Lymph # (Auto) [place] # (Auto) Eos # (Auto) Baso # (Auto) Abs Immat Gran (auto) Absolute Neuts (auto) Absolute Nucleated RBC Nucleated RBC % (auto) Sodium Potassium Chloride Carbon Dioxide Anion Gap BUN Creatinine Estim Creat Clear Calc Estimated GFR POC Glucose 114 Random Glucose Calcium Magnesium Preliminary micro results at discharge 04/04/22 08:13 Blood Culture - Preliminary Blood - Venous No growth after 24 hours. Discharge Plan Discharge Anticipated Discharge Date/Time: 04/06/22 10:05 Patient Disposition: Xfer Other Discharge Diagnosis: Severe sepsis UTI Acute encephalopathy Coag-negative staph CHAVEZ on CKD Hypernatremia Referrals: Jeancarlos Wang DO [Primary Care Provider] - 1 Week Discharge Medications: New cefuroxime axetil 250 mg tablet 250 mg PO BID Qty: 6 0RF Continued diazepam 2 mg Tablet 1 mg PO BID haloperidol decanoate [Haldol Decanoate] 50 mg/mL Solution 30 mg IM Q14D furosemide 20 mg Tablet 20 mg PO DAILY sennosides [senna] 8.6 mg Tablet 8.6 mg PO DAILY PRN (Reason: Constipation) perphenazine 2 mg Tablet 2 mg PO BID pantoprazole 40 mg Tablet,Delayed Release (Dr/Ec) 40 mg PO DAILY@0630 perphenazine 4 mg Tablet 4 mg PO BID oxcarbazepine 300 mg/5 mL (60 mg/mL) Suspension 300 mg PO BID Lokelma 10 gram Powder In Packet 10 g PO BEDTIME sodium bicarbonate 650 mg Tablet 1,300 mg PO BID Qty: 120 0RF atorvastatin 80 mg Tablet 80 mg PO BEDTIME acetaminophen 325 mg Tablet 650 mg PO Q4H PRN (Reason: Fever Or Pain) Rx Instructions: not to exceed 3 grams /24 hours hydroxyzine HCl 10 mg/5 mL Solution 12.5 mg PO Q4H PRN (Reason: Itching) sodium bicarbonate 650 mg Tablet 650 mg PO DAILY@1400 bisacodyl 10 mg Suppository 10 mg SC DAILY PRN (Reason: Constipation) Rx Instructions: use if senna ineffective apixaban 5 mg Tablet 5 mg PO BID Lokelma 10 gram Powder In Packet 20 g PO DAILY melatonin 3 mg Tablet 6 mg PO BEDTIME aspirin 81 mg Tablet,Chewable 81 mg PO DAILY cholecalciferol (vitamin D3) 50 mcg (2,000 unit) capsule 50 mcg PO DAILY desipramine 50 mg tablet 50 mg PO BEDTIME glucagon 1 mg/0.2 mL auto-injector 1 mg subcut Q15M PRN (Reason: HYPOGLYCEMIC EVENT) metoprolol tartrate 25 mg tablet 12.5 mg PO BID mirtazapine 30 mg tablet 30 mg PO BEDTIME Discharge Orders: Discharge Order (Routine); Ordered 04/06/22 Ordered By: Irma Morgan Diet: Advance to usual diet Activity on Discharge: As tolerated Stand Alone Forms: Patient Portal Discharge page Care Plan Goals: Complete resolution of symptoms [facility] Concerns: Severe sepsis UTI Acute encephalopathy Coag-negative staph CHAVEZ on CKD Hypernatremia Plan of Treatment: Follow-up with primary care provider as needed Take all medications as prescribed Assessment: see discharge summary
--- NOTE | 2022-04-06 10:01 | PC.NURSE ---
this nurse educated pt on the importance of scheduled medication this morning - pt states I don't want my meds. I don't have any problems . provider notified. per report pt has been refusing medications.
--- NOTE | 2022-04-06 11:34 | MHC.CM.PN ---
Patient has been medically cleared for dc to return to LTC today. Patient will return to LTC @ [facility] today at 1PM, via [facility]. CM spoke with Patient's Son/Deshaun @ [phone] and informed him of the dc plan (Deshaun is aware of and pleased with the dc plan). Last IMM addressed yesterday.
--- NOTE | 2022-04-06 11:47 | PM.PNNEP ---
Subjective Subjective Date of Service: 04/06/22 Interval history: seen and examined confused Physical Exam Vital Signs: Vital Signs: Last Vital Signs Temp 98.1 F 04/06/22 07:57 Pulse 61 04/06/22 07:57 Resp 20 04/06/22 07:57 BP 117/58 L 04/06/22 07:57 Pulse Ox 96 04/06/22 07:57 O2 Del Method 04/06/22 07:57 BMI result Body Mass Index 19.3 Const: General: alert and awake HEENT: Head: Yes normocephalic and Yes atraumatic Resp: Auscultation: clear to auscultation bilaterally Cardio: Heart sounds: S1 normal heart sound present and S2 normal heart sound present GI: Palpation (GI): Soft to palpation and nontender Extrem: General: No edema Objective Data Labs CBC & Chem 7: 04/05/22 15:54 Labs: Laboratory Results - last 24 hr 04/05/22 04/05/22 04/05/22 10:53 15:54 16:33 WBC 9.3 RBC 4.43 Hgb 12.5 Hct 40.0 MCV 90.3 MCH 28.2 MCHC 31.3 RDW 16.3 H Plt Count 157 L D MPV 12.3 Immature Gran % (Auto) 0.4 Neut % (Auto) 85.0 H Lymph % (Auto) 9.4 L [place] % (Auto) 3.5 Eos % (Auto) 1.4 Baso % (Auto) 0.3 Lymph # (Auto) 0.9 L [place] # (Auto) 0.3 Eos # (Auto) 0.1 Baso # (Auto) 0.0 Abs Immat Gran (auto) 0.04 H Absolute Neuts (auto) 7.9 Absolute Nucleated RBC 0.000 Nucleated RBC % (auto) 0.0 Sodium 144 Potassium 4.9 Chloride 119 H Carbon Dioxide 13 L Anion Gap 17 BUN 73 H Creatinine 3.80 H Estim Creat Clear Calc 10.5 Estimated GFR 12 POC Glucose 98 Random Glucose 61 Calcium 8.6 D Magnesium 1.8 04/05/22 04/06/22 19:56 07:35 WBC RBC Hgb Hct MCV MCH MCHC RDW Plt Count MPV Immature Gran % (Auto) Neut % (Auto) Lymph % (Auto) [place] % (Auto) Eos % (Auto) Baso % (Auto) Lymph # (Auto) [place] # (Auto) Eos # (Auto) Baso # (Auto) Abs Immat Gran (auto) Absolute Neuts (auto) Absolute Nucleated RBC Nucleated RBC % (auto) Sodium Potassium Chloride Carbon Dioxide Anion Gap BUN Creatinine Estim Creat Clear Calc Estimated GFR POC Glucose 126 H 114 Random Glucose Calcium Magnesium Microbiology Microbiology Results: Microbiology 04/04/22 08:13 Blood - Venous Blood Culture - Preliminary No growth after 48 hours. 04/04/22 08:12 Blood - Venous Blood Culture - Final Coag negative Staphylococcus 04/04/22 Unknown Urine clean catch - Urine solano top Urine Culture - Final No growth. 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 Progress Note: Quality Stroke Does the patient have a stroke diagnosis?: No
[2022-04-06 12:00] VITALS: BP 125/62; PULSE 67; RESP 20; TEMP 36.9; O2SAT 97
[2022-04-06 12:27] LABS: Influenza A PCR NEGATIVE (Negative); Influenza B PCR NEGATIVE (Negative); Resp Syncy Virus RNA Qual PCR NEGATIVE (Negative); SARS COV2 PCR INHOUSE NEGATIVE (Negative)
--- NOTE | 2022-04-06 13:26 | PC.NURSE ---
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 pt was alert to self, no more disoriented than baseline. IVs removed, monitor removed. perry removed. called [facility] - report given to nurse Casiano.
== END 2022-04-06 13:28 | disposition home or self-care (01) | DRG 872 ==
LOC: HO.ED 10:24 → HO.EDOVER 14:37 → HO.IMC 04-05 02:12
PROVIDERS: Admitting Provider Nurse Practitioner Acute Care; Emergency Provider Emergency Medicine; PCP Hospitalist; Visit Provider Nurse Practitioner Acute Care
DX: A41.9 Sepsis, unspecified organism (principal); N17.9 Acute kidney failure, unspecified; G93.49 Other encephalopathy; N18.4 Chronic kidney disease, stage 4 (severe); N39.0 Urinary tract infection, site not specified; R65.20 Severe sepsis without septic shock; E86.0 Dehydration; Z66 Do not resuscitate; F03.90 Unspecified dementia, unspecified severity, without behavioral disturbance, psychotic disturbance, mood disturbance, and anxiety; J44.9 Chronic obstructive pulmonary disease, unspecified; E87.5 Hyperkalemia; I12.9 Hypertensive chronic kidney disease with stage 1 through stage 4 chronic kidney disease, or unspecified chronic kidney disease; E11.22 Type 2 diabetes mellitus with diabetic chronic kidney disease; E11.649 Type 2 diabetes mellitus with hypoglycemia without coma; Z20.822 Contact with and (suspected) exposure to COVID-19; Z88.5 Allergy status to narcotic agent; Z88.8 Allergy status to other drugs, medicaments and biological substances; Z79.01 Long term (current) use of anticoagulants; Z79.899 Other long term (current) drug therapy
CPT/HCPCS: 0241U; 36415; 71045; 80048; 80076; 81001; 82550; 82803; 82947; 83605; 83690; 83735; 84145; 84484; 85025; 85610; 87040; 87086; 87147; 87205; 93005; 96361; 96374; 96375; 99285; J0611; J0696; J3371

== ENCOUNTER 2022-04-19 13:04 | Outpatient (REF) | payer MEDICARE, MEDICAID, SELFPAY | END 2022-04-19 13:05 | disposition home or self-care (01) | LOC: HO.XRAY 13:04 | PROVIDERS: PCP Hospitalist; Visit Provider Otolaryngology | DX: Z13.89 Encounter for screening for other disorder (principal) ==

== ENCOUNTER 2022-05-03 09:38 | Outpatient (REF) | payer MEDICARE, MEDICAID, SELFPAY ==
--- NOTE | ~2022-05-03 | XR_ITS ---
EXAMINATION: AP AND LATERAL SKULL CLINICAL INFORMATION: Pre-MRI COMPARISON: PET/CT 01/26/2019 TECHNIQUE: AP and lateral skull FINDINGS: Aside from the presence of dental fillings, no metallic foreign bodies are seen. The visualized paranasal sinuses are unremarkable. XR/XR pre mri screening IMPRESSION: No metallic foreign bodies are seen.
== END 2022-05-03 09:39 | disposition home or self-care (01) ==
LOC: HO.XRAY 09:38
PROVIDERS: PCP Hospitalist; Visit Provider Radiology Diagnostic Radiology
DX: Z13.89 Encounter for screening for other disorder (principal)